=== PATIENT | male | born 1960 | race Caucasian/White ===

== ENCOUNTER 2020-06-11 01:14 | Inpatient (IN) | payer OTHER, SELFPAY ==
[~2020-06-11] VITALS: Ht 185.4 cm; Wt 96.4 kg
[2020-06-11] VITALS (8 sets, daily range): BP systolic 126–157; BP diastolic 71–95
[2020-06-11] MEDS ORDERED: methylPREDNISolone 125MG 2ML VIAL IV ONE (02:00)
[2020-06-11] MEDS: COMBIVENT RESPIMAT 100-20MCG INHALER 4GM INH SCH ×2 (02:00→03:14)
[2020-06-11] MEDS ORDERED: ONDANSETRON 4MG/2ML VIAL IV ONE (02:00)
[2020-06-11 02:29] LABS: BASO # 0.1 10^3/uL (0.0-0.2); BASO % 0.3 % (0.0-1.0); EOS # 0.1 10^3/uL (0.0-0.5); EOS % 0.4 % (0.0-3.0); HEMATOCRIT 41.8 % (42.0-52.0); HEMOGLOBIN 12.5 g/dl (13.5-17.5); LYMPH # 2.1 10^3/uL (1.5-5.0); LYMPH % 13.1 % (24.0-44.0); MEAN CORPUSCULAR HEMOGLOBIN 30.1 pg (27.0-33.0); MEAN CORPUSCULAR HGB CONC 29.9 g/dl (32.0-36.5); MEAN CORPUSCULAR VOLUME 100.7 fl (80.0-96.0); MONO # 0.6 10^3/uL (0.0-0.8); MONO % 3.8 % (0.0-5.0); NEUTROPHILS # 13.2 10^3/uL (1.5-8.5); NEUTROPHILS % 81.9 % (36.0-66.0); PLATELET COUNT, AUTOMATED 293 10^3/uL (150-450); RED BLOOD COUNT 4.15 10^6/uL (4.30-6.10); WHITE BLOOD COUNT 16.1 10^3/uL (4.0-10.0)
[2020-06-11] MEDS ORDERED: ARNU1INH3 PO (02:46)
[2020-06-11] MEDS ORDERED: LORA1TAB4 PO ×2 (02:46→07:04)
[2020-06-11] MEDS ORDERED: FLUO20CA22 PO (02:46)
[2020-06-11] MEDS ORDERED: STIO1AER IN (02:46)
[2020-06-11] MEDS ORDERED: CARV25TA PO ×2 (02:46→07:04)
[2020-06-11] MEDS ORDERED: QUET100T2 PO ×2 (02:46→07:04)
[2020-06-11] MEDS ORDERED: TREL1AER PO (02:46)
[2020-06-11] MEDS ORDERED: TRAZ1TAB11 PO (02:46)
[2020-06-11] MEDS ORDERED: DALI1TAB2 PO ×2 (02:46→07:04)
[2020-06-11 02:59] LABS: ALBUMIN 3.2 GM/DL (3.2-5.2); ALT/SGPT 10 U/L (12-78); BILIRUBIN,DIRECT 0.1 MG/DL (0.0-0.2); BILIRUBIN,TOTAL 0.4 MG/DL (0.2-1.0); BLOOD UREA NITROGEN 15 MG/DL (7-18); CALCIUM LEVEL 8.6 MG/DL (8.5-10.1); CARBON DIOXIDE LEVEL 37 MEQ/L (21-32); CHLORIDE LEVEL 97 MEQ/L (98-107); CK-MB VALUE MASS < 1.0 NG/ML (<3.6); CPK CREATINE PHOSPHOKINASE 31 U/L (39-308); CREATININE FOR GFR 0.99 MG/DL (0.70-1.30); GLOMERULAR FILTRATION RATE > 60.0 (>56); GLUCOSE, FASTING 194 MG/DL (70-100); MB/CK RELATIVE INDEX 3.23 (< OR =4); POTASSIUM SERUM 3.8 MEQ/L (3.5-5.1); SODIUM LEVEL 139 MEQ/L (136-145); TOTAL PROTEIN 6.7 GM/DL (6.4-8.2); TROPONIN I < 0.02 NG/ML (< 0.10)
[2020-06-11] MEDS ORDERED: NITROGLYCERIN 0.4 MG SUBL TABLET SL STA (03:31)
[2020-06-11] MEDS ORDERED: IPRATROPIUM 0.5MG/ALBUTEROL 2.5MG INH SOL UD 3ML (DUONEB) NEB ONE (03:45)
[2020-06-11] MEDS ORDERED: ISOVUE-370 76% 100ML VIAL As Ordered ONE (04:40)
--- NOTE | 2020-06-11 05:17 | REPVR ---
PROCEDURE INFORMATION: Exam: XR Chest, 1 View Exam date and time: 06/11/2020 3:57 AM Age: 59 years old Clinical indication: Cough; Additional info: Dyspnea/cough TECHNIQUE: Imaging protocol: XR of the chest Views: 1 view. COMPARISON: No relevant prior studies available. FINDINGS: Lungs: Mild bilateral perihilar and bibasilar reticulonodular and ground-glass opacities. Pleural space: Unremarkable. No pleural effusion. No pneumothorax. Heart/Mediastinum: Cardiomegaly. Bones/joints: Unremarkable. IMPRESSION: Cardiomegaly. Mild bilateral perihilar and bibasilar reticulonodular and ground-glass opacities. Electronically signed by: Darryn Mendiola On 06/11/2020 05:17:08 AM
--- NOTE | 2020-06-11 05:22 | REPVR ---
PROCEDURE INFORMATION: Exam: CT Angiography Chest With Contrast Exam date and time: 06/11/2020 4:33 AM Age: 59 years old Clinical indication: Chest pain; Type not specified; Additional info: SOB, chest pain TECHNIQUE: Imaging protocol: Computed tomographic angiography of the chest with intravenous contrast. 3D rendering (Not supervised by radiologist): MIP and/or 3D reconstructed images were created by the technologist. Radiation optimization: All CT scans at this facility use at least one of these dose optimization techniques: automated exposure control; mA and/or kV adjustment per patient size (includes targeted exams where dose is matched to clinical indication); or iterative reconstruction. Contrast material: ISO; Contrast volume: 75 ml; Contrast route: INTRAVENOUS (IV); COMPARISON: CR PORTABLE CHEST X-RAY 06/11/2020 3:48 AM FINDINGS: Degraded by motion. Pulmonary arteries: Normal. No pulmonary emboli. Aorta: Infrarenal abdominal aortic aneurysm measuring at least 3.2 cm. Lungs: Centrilobular and paraseptal emphysema. Subpleural ground-glass opacity in the right lower lobe. Atelectasis or scarring in the lingula. Pleural space: Unremarkable. No pneumothorax. No pleural effusion. Heart: Atherosclerotic disease of coronary arteries. Cardiomegaly. Lymph nodes: Unremarkable. No enlarged lymph nodes. Liver: Mild hepatomegaly. Adrenals: Left adrenal hyperplasia. Kidneys and ureters: Nonobstructive left nephrolithiasis. Suggestion of mild hydronephrosis. Bones/joints: Multilevel degenerative disease of the thoracic spine. Soft tissues: Unremarkable. IMPRESSION: Degraded by motion. No definite acute pulmonary embolic disease. Nonobstructive left nephrolithiasis. Suggestion of mild hydronephrosis. Infrarenal abdominal aortic aneurysm measuring at least 3.2 cm. Electronically signed by: Darryn Mendiola On 06/11/2020 05:22:10 AM
[2020-06-11] MEDS ORDERED: LABETALOL 100MG/20ML VIAL IV STA (06:02)
[2020-06-11] MEDS ORDERED: hydrALAZINE 20MG/ML 1ML VIAL (J0360 PER 20MG) IV PRN (06:15)
[2020-06-11] MEDS ORDERED: CARVedilol 12.5 MG TAB PO SCH (06:15)
[2020-06-11] MEDS ORDERED: AZITHROMYCIN 250MG TABLET PO ONE (06:15)
[2020-06-11] MEDS ORDERED: LEVALBUTEROL 1.25 MG/0.5 ML CONCENTRATE NEB INH PRN (06:15)
[2020-06-11] MEDS ORDERED: CARVedilol 12.5 MG TAB PO ONE (06:30)
[2020-06-11 06:36] LABS: NT-PRO BNP 1371 PG/ML (<125)
[2020-06-11 06:42] LABS: VENOUS BASE EXCESS 12.9 (-2.0-2.0); VENOUS O2 SATURATION 95.3 % (60.0-80.0); VENOUS PARTIAL PRESSURE CO2 97.6 mmHg (38.0-50.0); VENOUS PARTIAL PRESSURE O2 76.2 mmHg (30.0-50.0); VENOUS PH 7.272 UNITS (7.330-7.430); VENOUS STANDARD HCO3 36.6 MEQ/L
[2020-06-11] MEDS ORDERED: FLUO20CA20 PO (07:04)
[2020-06-11] MEDS ORDERED: TREL1AER INH (07:04)
[2020-06-11] MEDS ORDERED: LEVA1.25 INH (07:04)
[2020-06-11] MEDS ORDERED: PROAAER10 INH (07:04)
[2020-06-11] MEDS ORDERED: TRAZ-252 PO (07:04)
[2020-06-11] MEDS ORDERED: METF-838 PO (07:04)
[2020-06-11] MEDS ORDERED: PATIENT COMMENT (07:06)
[2020-06-11] MEDS: DOXYCYCLINE HYCLATE 100 MG in D5W MINI-BAG PLUS 100 ML IV SCH ×2 (07:34→19:08)
[2020-06-11] MEDS: LEVALBUTEROL 1.25 MG/0.5 ML CONCENTRATE NEB INH SCH ×5 (08:00→23:11)
--- NOTE | 2020-06-11 08:13 | HPEPDOC ---
[facility] Medical History & Physical Date of Admission Jun 11, 2020 Date of Service: Jun 11, 2020 Attending Physician: LENA RIOS MD History and Physical CHIEF COMPLAINT: shortness of breath HISTORY OF PRESENT ILLNESS: 59 yo M with a hx of COPD, asthma, CAD s/p stenting, HTN and Parkinsonism, presented to the [facility] ER with progressively worsening dyspnea. He reports cough without sputum and endorses subjective fevers. He states the he smoked marijuana, and reports that it was synthetic compound K2. He states that he had been having blurred vision and visual hallucinations. He denies seizures, unsteady gait. On arrival to ED BP 220/130, T 98.3, HR 95, RR 34, SpO2 97% on 4L NC. WBC 16.1. Hgb 12.5. Hct 41.8. Na 139. K 3.8. BNP 1371. He received 125 mg methylprednisolone in ED. Started on doxycycline. Labetalol IV 20 mg and carvedilol 25 mg PO. Patient admitted for management of acute COPD exacerbation, with likely acute on chronic CHF exacerbation. PAST MEDICAL HISTORY: 1. COPD 2. CAD s/p stenting 3. HTN 4. Asthma 5. Parkinsonism? PAST SURGICAL HISTORY: 1. Appendectomy in childhood 2. 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 REVIEW OF SYSTEMS: CONSTITUTIONAL: She is subjective chills HEENT: Endorses left eye yellow discharge, crusting CARDIOVASCULAR: patient denies chest pain, palpitations. RESPIRATORY: Endorses shortness of breath without cough. Reports wheezing GASTROINTESTINAL: patient denies abdominal pain, n/v/d, blood in stool. GENITOURINARY: patient denies dysuria, discharge. SKIN: patient denies rashes. MUSCULOSKELETAL: patient denies joint pain, neck pain. NEUROLOGICAL: patient denies focal weakness, numbness, seizures. PSYCHIATRIC: patient denies SI/HI. ENDOCRINE: patient denies polyuria, heat intolerance, cold intolerance. HEMATOLOGIC/LYMPHATIC: patient denies easy bruising. HOME MEDICATIONS: Please see below. PHYSICAL EXAMINATION: VITAL SIGNS: please see below General: NAD, comfortable HEENT: PERRLA, EOMI, sclerae clear, left conjunctiva injected, noted yellow crusty discharge. Neck: supple, normal ROM, no JVD Respiratory: Noted significant wheezing in bilateral lung bases, otherwise no rales or crackles CVS: RRR, normal S1, S2, no murmurs Abdo: soft, no masses, no hepatosplenomegaly, BS+, no rebound tenderness Extremities: no edema, pulses 2+ MSK: no joint deformities, normal ROM Neuro: no focal neuro deficits, moving all 4 extremities, CN2-12 intact. Strength 5/5 in all 4 extremities. No nystagmus. Psych: calm, cooperative, AAO x 3 LABORATORY DATA: See below. IMAGING: CT head wo contrast (06/11/20) No acute findings, no ICH. CTA chest (06/11/20): Degraded by motion. No definite acute pulmonary embolic disease. Nonobstructive left nephrolithiasis. Suggestion of mild hydronephrosis. Infrarenal abdominal aortic aneurysm measuring at least 3.2 cm. CXR (06/11/20): Cardiomegaly. Mild bilateral perihilar and bibasilar reticulonodular and ground-glass opacities. MICROBIOLOGY: Please see below. ASSESSMENT: 59 yo M with a hx of COPD, asthma, CAD s/p stenting, HTN and Parkinsonism, presented to the [facility] ER with progressively worsening dyspnea. . PLAN: #Acute COPD exacerbation: duonebs. Symbicort. O2 via NC, maintain SpO2 > 92%. C/w IV solumedrol 80 mg IV q8h. #Acute on chronic CHF exacerbation: 2D echo. Lasix. c/w coreg 25 mg BID #Hypertensive urgency: improved. resume home meds. #visual hallucination: given hx of parkinsonism consider lewy body dementia. Took synthetic marijuana. CT head wo contrast negative for ICH. #L bacterial conjunctitis: ophthalmic cipro ointment. Consider ophtho eval if no improvement. #Hx of falls: ongoing workup of Parkinsonism. Reports frequent falls. PT/OT eval. DVT ppx: lovenox Vital Signs Vital Signs Date Time Temp Pulse Resp B/P (MAP) Pulse Ox O2 Delivery O2 Flow Rate FiO2 06/11/20 07:33 87 195/117 06/11/20 06:59 20 94 Nasal Cannula 4.0 06/11/20 06:39 97.8 Laboratory Data Labs 24H Laboratory Tests 2 06/11/20 02:18: Immature Granulocyte % (Auto) 0.5, Neutrophils (%) (Auto) 81.9H, Lymphocytes (%) (Auto) 13.1L, Monocytes (%) (Auto) 3.8, Eosinophils (%) (Auto) 0.4, Basophils (%) (Auto) 0.3, Neutrophils # (Auto) 13.2H, Lymphocytes # (Auto) 2.1, Monocytes # (Auto) 0.6, Eosinophils # (Auto) 0.1, Basophils # (Auto) 0.1, Nucleated Red Blood Cells % (auto) 0.0, Anion Gap 5L, Glomerular Filtration Rate > 60.0, Lactic Acid Level 0.7, Calcium Level 8.6, Total Bilirubin 0.4, Direct Bilirubin 0.1, Aspartate Amino Transf (AST/SGOT) 7, Alanine Aminotransferase (ALT/SGPT) 10L, Alkaline Phosphatase 71, Total Creatine Kinase 31L, Creatine Kinase MB < 1.0, Creatine Kinase MB Relative Index 3.23, Troponin I < 0.02, KF-Htd-Q-Type Natriuretic Peptide 1371H, Total Protein 6.7, Albumin 3.2, Albumin/Globulin Ratio 0.9 06/11/20 06:30: Bedside Glucose (Misc Panel) 99 06/11/20 06:36: Blood Gas Bicarbonate Standard 36.6, Venous Blood pH 7.272L, Venous Blood Partial Pressure CO2 97.6H, Venous Blood Partial Pressure O2 76.2H, Venous Blood Total Carbon Dioxide 47.0H, Venous Blood HCO3 44.0H, Venous Blood Oxygen Saturation 95.3H, Venous Blood Base Excess 12.9H CBC/BMP Laboratory Tests 06/11/20 02:18 Microbiology Microbiology 06/11/20 Respiratory Virus Panel (PCR) ([facility]) - Final, Complete Home Medications Scheduled Carvedilol (Carvedilol) 25 Mg Tablet, 25 MG PO BID Fluoxetine Hcl (Fluoxetine HCl) 20 Mg Capsule, 60 MG PO DAILY Fluticasone/Umeclidin/Vilanter (Trelegy Ellipta 100-62.5-25) 1 Each Blst.w.dev, 1 PUFF INH DAILY Levalbuterol HCl (Levalbuterol Concentrate) 1.25 Mg/0.5 Ml Vial.neb, 1.25 MG INH TID Lorazepam (Lorazepam) 1 Mg Tablet, 1 MG PO Q8H Metformin HCl (Metformin HCl ER) 500 Mg Tab.er.24h, 500 MG PO DAILY Quetiapine Fumarate (Quetiapine Fumarate) 100 Mg Tablet, 100 MG PO QHS Roflumilast (Daliresp) 500 Mcg Tablet, 500 MCG PO DAILY Trazodone HCl (Trazodone HCl) 50 Mg Tablet, 100 MG PO QHS Scheduled PRN Albuterol Sulfate (Proair Hfa) 8.5 Gm Hfa.aer.ad, 2 PUFF INH QID PRN for SHORTNESS OF BREATH Miscellaneous Medications [Patient Comment] COMPLETED MED REC VIA EXTERNAL MED HISTORY Allergies Coded Allergies: fentanyl (Verified Allergy, Unknown, 06/11/20) A-FIB/CHADSVASC A-FIB History Current/History of A-Fib/PAF?: No Current PO Anticoag Therapy: No LENA RIOS MD Jun 11, 2020 08:13
[2020-06-11] MEDS ORDERED: IPRATROPIUM 0.5MG/ALBUTEROL 2.5MG INH SOL UD 3ML (DUONEB) NEB PRN (08:30)
[2020-06-11] MEDS ORDERED: CAPTOpril 12.5 MG TAB PO ONE (09:00)
[2020-06-11] MEDS ORDERED: FLUBLOK(EGG FREE)(QUAD)INFLUENZA VACC 0.5ML SYRINGE 18YRS & OLDER IM SCH (09:15)
[2020-06-11 10:00] LABS: MAGNESIUM LEVEL 2.1 MG/DL (1.8-2.4); TROPONIN I < 0.02 NG/ML (< 0.10)
[2020-06-11] MEDS: NITROGLYCERIN 2% OINT 1 GM *U/D* PKT TOP SCH ×4 (10:04→20:25)
[2020-06-11] MEDS: methylPREDNISolone 125MG 2ML VIAL IV SCH ×2 (11:24→17:31)
[2020-06-11 12:42] LABS: CK-MB VALUE MASS 1.6 NG/ML (<3.6); CPK CREATINE PHOSPHOKINASE 36 U/L (39-308); MB/CK RELATIVE INDEX 4.44 (< OR =4); TROPONIN I < 0.02 NG/ML (< 0.10)
[2020-06-11] MEDS: ERYTHROMYCIN OPHTH OINT OS SCH ×3 (13:44→20:25)
--- NOTE | 2020-06-11 14:52 | REP ---
INDICATION: hypertensive urgency. COMPARISON: None. TECHNIQUE: Standard renal ultrasound with renal artery Doppler ultrasound technique. FINDINGS: RENAL ULTRASOUND: The right kidney measured 11.1 x 4.9 x 7.2 cm and shows cortical thickness normal and the echogenicity upper range of normal. There are echogenic vessels in the renal sinus and increased renal sinus fat but no hydronephrosis or visible hydroureter. The left kidney measured 12.7 x 5.5 x 6.1 cm and its cortical echogenicity is also in the upper range of normal cortical thickness was normal. There are echogenic vessels in the kidney and increased renal sinus fat is again seen. There is upper pole 11 mm calculus with shadowing. Very minimal dilatation of the collecting system is evident. ON THE BLADDER WAS ONLY MINIMALLY DISTENDED THE PATIENT WAS NPO. NO VISIBLE STONE, MASS OR WALL THICKENING. NO URETERAL JETS OBSERVED. RENAL ARTERY DOPPLER ULTRASOUND: RIGHT KIDNEY: IT MEASURES 11.1 CM. PEAK RENAL ARTERY VELOCITY 107 CM/S, PEAK AORTIC VELOCITY 55 CM/S THIS GIVES A RENAL AORTIC RATIO OF 0.52. RESISTIVE INDEX IN THE UPPER MID AND LOWER POLES RESPECTIVELY IS 0.65, 0.60 AND 0.67. THE ACCELERATION TIME IN THESE AREAS IS 0.05, 0.046, 0.046 SECONDS. LEFT KIDNEY: IT MEASURES 12.7 CM. RENAL ARTERY PEAK VELOCITY NOT VISUALIZED. PEAK AORTIC VELOCITY 55 CM/S RESISTIVE INDEX FOR UPPER MID AND LOWER POLES IS 0.58, 0.67 AND 0.58 RESPECTIVELY. ACCELERATION TIME IS 0.046, 0.038 AND 0.046 SECONDS RESPECTIVELY. IMPRESSION: : 1. NO EVIDENCE OF RENAL ATROPHY. CORTICAL THICKNESS IS NORMAL ECHOGENICITY UPPER RANGE OF NORMAL. THERE IS SINUS LIPOMATOSIS AND SOME VERY MINIMAL HYDRONEPHROSIS ON THE LEFT. 11 MM STONE NOTED ON THE LEFT. BLADDER NOT WELL FILLED THE PATIENT WAS NPO. 2. THERE IS NO DOPPLER ULTRASOUND EVIDENCE OF RENAL ARTERY STENOSIS ON THE RIGHT. THE LEFT KIDNEY COULD NOT BE EVALUATED FOR ITS MAIN RENAL ARTERY BECAUSE OF BOWEL GAS AND BODY HABITUS THEREFORE NO ASSESSMENT FOR RENAL ARTERY STENOSIS ON THE LEFT CAN BE MADE. <Electronically signed by Leonard Gr > 06/11/20 [id number]
[2020-06-11] MEDS ORDERED: OXAZEPAM 10 MG CAP PO PRN (15:15)
[2020-06-11] MEDS ORDERED: LORazepam 2 MG/ML VIAL IV PRN ×2 (15:15→17:11)
--- NOTE | 2020-06-11 16:14 | REP ---
INDICATION: took synthetic marijuana, hallucination. R/o ICH. COMPARISON: None. TECHNIQUE: CT BRAIN PERFORMED IN THE AXIAL PLANE. CORONAL RECONSTRUCTION IMAGES ARE PERFORMED. FINDINGS: THE VENTRICLES ARE NORMAL IN SIZE AND POSITION. THERE IS NO MIDLINE SHIFT OR MASS EFFECT. ORELLANA-WHITE DIFFERENTIATION IS WELL MAINTAINED. THERE IS NO ACUTE INTRACRANIAL HEMORRHAGE OR EXTRA-AXIAL FLUID COLLECTION. BONE WINDOW EXAMINATION IS UNREMARKABLE. VISUALIZED MASTOID AIR CELLS AND PARANASAL SINUSES ARE CLEAR. IMPRESSION: NEGATIVE NONCONTRAST CT BRAIN. <Electronically signed by Leonard Gr > 06/11/20 [id number]
[2020-06-11] MEDS: MULTIVITAMINS/MINERALS THERAP 1 TAB PO SCH (16:27)
[2020-06-11] MEDS: THIAMINE 100 MG TAB PO SCH (16:27)
[2020-06-11] MEDS: FOLIC ACID 1 MG TAB PO SCH (16:27)
[2020-06-11] MEDS ORDERED: LORazepam 2 MG TAB PO PRN (17:00)
[2020-06-11 18:44] LABS: CPK CREATINE PHOSPHOKINASE 35 U/L (39-308); MB/CK RELATIVE INDEX 2.86 (< OR =4); TROPONIN I < 0.02 NG/ML (< 0.10)
[2020-06-11] MEDS: CARVedilol 12.5 MG TAB PO SCH (22:06)
[2020-06-11] MEDS ORDERED: LORazepam 2 MG/ML VIAL As Ordered ONE (22:21)
[2020-06-11] MEDS: LORazepam 1 MG TAB PO SCH (22:30)
[2020-06-11] MEDS ORDERED: ALBUTEROL 90 MCG/ACT 8GM HFA INHALER INH PRN (22:30)
[2020-06-11] MEDS: QUEtiapine FUMARATE 100 MG TAB PO SCH (23:15)
[2020-06-11] MEDS: traZODone 50 MG TAB PO SCH (23:15)
[2020-06-12] VITALS (7 sets, daily range): BP systolic 121–168; BP diastolic 63–98
[2020-06-12] MEDS: ERYTHROMYCIN OPHTH OINT OS SCH ×6 (00:16→21:00)
[2020-06-12] MEDS: NITROGLYCERIN 2% OINT 1 GM *U/D* PKT TOP SCH ×6 (00:17→20:59)
[2020-06-12] MEDS: methylPREDNISolone 125MG 2ML VIAL IV SCH ×3 (02:58→18:30)
[2020-06-12] MEDS: LEVALBUTEROL 1.25 MG/0.5 ML CONCENTRATE NEB INH SCH ×6 (03:06→23:46)
[2020-06-12] MEDS: LORazepam 1 MG TAB PO SCH ×3 (06:34→22:03)
[2020-06-12] MEDS: DOXYCYCLINE HYCLATE 100 MG in D5W MINI-BAG PLUS 100 ML IV SCH ×2 (06:34→18:29)
[2020-06-12] MEDS: THIAMINE 100 MG TAB PO SCH ×2 (09:24→20:58)
[2020-06-12] MEDS: CARVedilol 12.5 MG TAB PO SCH ×2 (09:24→21:00)
[2020-06-12] MEDS: FOLIC ACID 1 MG TAB PO SCH (09:24)
[2020-06-12] MEDS: MULTIVITAMINS/MINERALS THERAP 1 TAB PO SCH (09:24)
[2020-06-12] MEDS: ENOXAPARIN 40MG/0.4ML SYRINGE (J1650 PER 10MG) SC SCH (09:25)
[2020-06-12] MEDS: FLUoxetine 20 MG CAP PO SCH (09:25)
--- NOTE | 2020-06-12 10:06 | REP ---
INDICATION: hypoxia. COMPARISON: Comparison chest x-ray June 11, 2020.. TECHNIQUE: Single sitting AP radiograph. FINDINGS: Monitoring electrodes are seen. The lungs are hyperinflated. No infiltrate is seen. Pleural angles are sharp. Heart is enlarged as before. Pulmonary vascular and interstitial congestion is improved. IMPRESSION: Vascular and interstitial congestion pattern seen on the previous day has improved somewhat. Hyperinflation and cardiomegaly. No focal infiltrate seen. <Electronically signed by Warren Garcia > 06/12/20 [id number]
[2020-06-12] MEDS ORDERED: GLUCAGON INJ 1MG VIAL SC PRN (12:15)
[2020-06-12] MEDS ORDERED: DEXTROSE 50% 50 ML SYRINGE IV PRN (12:15)
[2020-06-12] MEDS ORDERED: GLUCOSE 4GM CHEW TABLET PO PRN (12:15)
--- NOTE | 2020-06-12 12:19 | IPNPDOC ---
Date Seen The patient was seen on 06/12/20. Progress Note SUBJECTIVE: Patient was seen and examined at bedside this morning. States improvement in shortness of breath. Denies chest pain, fevers, chills, palpit ations. Patient further endorses persistent blurred vision and haziness, but has been happening for the past year. He no longer endorses visual hallucinations. However. I suspect this was likely sequelae of synthetic marijuana use. As indicated below. A CT imaging of the brain on 06/11/2020 was negative for intracranial hemorrhage or acute ischemia OBJECTIVE PHYSICAL EXAMINATION: VITAL SIGNS: please see below General: NAD, comfortable HEENT: PERRLA, EOMI, sclerae clear, left conjunctiva injected, noted yellow crusty discharge. Approved from yesterday Neck: supple, normal ROM, no JVD Respiratory: Noted significant wheezing in bilateral lung bases, otherwise no rales or crackles CVS: RRR, normal S1, S2, no murmurs Abdo: soft, no masses, no hepatosplenomegaly, BS+, no rebound tenderness Extremities: no edema, pulses 2+ MSK: no joint deformities, normal ROM Neuro: no focal neuro deficits, moving all 4 extremities, CN2-12 intact. Strength 5/5 in all 4 extremities. No nystagmus. Psych: calm, cooperative, AAO x 3 LABORATORY DATA, IMAGING STUDIES, MICROBIOLOGY: Please see below. CXR 06/12/20: Vascular and interstitial congestion pattern seen on the previous day has improved somewhat. Hyperinflation and cardiomegaly. No focal infiltrate seen. CT head wo contrast (06/10/20): NEGATIVE NONCONTRAST CT BRAIN. Renal US (06/10/20): 1. NO EVIDENCE OF RENAL ATROPHY. CORTICAL THICKNESS IS NORMAL ECHOGENICITY UPPER RANGE OF NORMAL. THERE IS SINUS LIPOMATOSIS AND SOME VERY MINIMAL HYDRONEPHROSIS ON THE LEFT. 11 MM STONE NOTED ON THE LEFT. BLADDER NOT WELL FILLED THE PATIENT WAS NPO. 2. THERE IS NO DOPPLER ULTRASOUND EVIDENCE OF RENAL ARTERY STENOSIS ON THE RIGHT. THE LEFT KIDNEY COULD NOT BE EVALUATED FOR ITS MAIN RENAL ARTERY BECAUSE OF BOWEL GAS AND BODY HABITUS THEREFORE NO ASSESSMENT FOR RENAL ARTERY STENOSIS ON THE LEFT CAN BE MADE. CTA chest (06/11/20): Degraded by motion. No definite acute pulmonary embolic disease. Nonobstructive left nephrolithiasis. Suggestion of mild hydronephrosis. Infrarenal abdominal aortic aneurysm measuring at least 3.2 cm. CXR (06/11/20): Cardiomegaly. Mild bilateral perihilar and bibasilar reticulonodular and ground-glass opacities. Echocardiogram: ordered, read pending. DVT prophylaxis ordered?: Y ASSESSMENT: 59 yo M with a hx of COPD, asthma, CAD s/p stenting, HTN and Parkinsonism, presented to the [facility] ER with progressively worsening dyspnea. . PLAN: #Acute COPD exacerbation: WBC 16.1. doxycycline. duonebs. Symbicort. O2 via NC, maintain SpO2 > 92%. C/w IV solumedrol 80 mg IV q8h until 06/13/20, then transition to PO. Add ISS. PPI. #Acute on chronic CHF exacerbation: 2D echo read pending. Lasix 40 mg IV once today. c/w coreg 25 mg BID #Hypertensive urgency: BP remains elevated. Coreg 25 mg BID. Add lisinopril 10 mg daily. Titrate. #visual hallucination: given hx of parkinsonism consider lewy body dementia. Took synthetic marijuana. CT head wo contrast negative for ICH. #L bacterial conjunctitis: ophthalmic cipro ointment. Consider ophtho eval if no improvement. #Hx of falls: ongoing workup of Parkinsonism. Reports frequent falls. PT/OT eval. L hydronephrosis: 11 mm stone in L kidney. Cr wnl. Discussed with urology Infrarenal aortic aneurysm: 3.2 cm. Vascular surgery follow up outpatient. VS, I&O, 24H, Fishbone Vital Signs/I&O Vital Signs Date Time Temp Pulse Resp B/P (MAP) Pulse Ox O2 Delivery O2 Flow Rate FiO2 06/12/20 10:43 77 168/97 06/12/20 06:00 98.6 16 91 Nasal Cannula 2.0 I&O- Last 24 Hours up to 6 AM 06/12/20 06:00 Intake Total 560 ml Output Total 1925 ml Balance -1365 ml Laboratory Data 24H LABS Laboratory Tests 2 06/11/20 17:55: Total Creatine Kinase 35L, Creatine Kinase MB 1.0, Creatine Kinase MB Relative Index 2.86, Troponin I < 0.02 Microbiology Microbiology 06/11/20 Respiratory Virus Panel (PCR) ([facility]) - Final, Complete LENA RIOS MD Jun 12, 2020 12:19
[2020-06-12] MEDS: PANTOPRAZOLE 40MG TAB (PROTONIX) PO SCH ×2 (12:27→20:58)
[2020-06-12] MEDS: lisinopriL 10 MG TAB PO SCH (12:28)
[2020-06-12] MEDS ORDERED: FUROSEMIDE 40MG/4ML VIAL (J1940) IV ONE (12:30)
[2020-06-12 13:20] LABS: BASO % 0.1 % (0.0-1.0); HEMATOCRIT 43.3 % (42.0-52.0); HEMOGLOBIN 13.8 g/dl (13.5-17.5); LYMPH # 1.5 10^3/uL (1.5-5.0); LYMPH % 11.9 % (24.0-44.0); MEAN CORPUSCULAR HEMOGLOBIN 31.1 pg (27.0-33.0); MEAN CORPUSCULAR HGB CONC 31.9 g/dl (32.0-36.5); MEAN CORPUSCULAR VOLUME 97.5 fl (80.0-96.0); MONO # 0.3 10^3/uL (0.0-0.8); MONO % 2.1 % (0.0-5.0); NEUTROPHILS # 10.9 10^3/uL (1.5-8.5); NEUTROPHILS % 85.2 % (36.0-66.0); PLATELET COUNT, AUTOMATED 306 10^3/uL (150-450); RED BLOOD COUNT 4.44 10^6/uL (4.30-6.10); WHITE BLOOD COUNT 12.8 10^3/uL (4.0-10.0)
[2020-06-12] MEDS: SYMBICORT 80/4.5MCG INHALER 6GM INH SCH ×2 (13:37→19:55)
[2020-06-12 14:25] LABS: ALBUMIN 3.4 GM/DL (3.2-5.2); ALT/SGPT 10 U/L (12-78); BILIRUBIN,TOTAL 0.4 MG/DL (0.2-1.0); BLOOD UREA NITROGEN 22 MG/DL (7-18); CALCIUM LEVEL 9.6 MG/DL (8.5-10.1); CARBON DIOXIDE LEVEL 31 MEQ/L (21-32); CHLORIDE LEVEL 98 MEQ/L (98-107); GLOMERULAR FILTRATION RATE > 60.0 (>56); GLUCOSE, FASTING 152 MG/DL (70-100); MAGNESIUM LEVEL 2.2 MG/DL (1.8-2.4); POTASSIUM SERUM 3.9 MEQ/L (3.5-5.1); SODIUM LEVEL 137 MEQ/L (136-145); TOTAL PROTEIN 7.2 GM/DL (6.4-8.2)
[2020-06-12] MEDS: HumaLOG INSULIN (NovoLOG) PER UNIT SC SCH ×2 (17:19→21:00)
--- NOTE | 2020-06-12 18:49 | ECGEPIP ---
[facility] - ED Test Date: 2020-06-11 Pat Name: ELIEZER SEN Department: Room: [place] [address] Gender: Male Attendant Child Activity: mohan : 1960 Requested By: HELEN Marie Order Number: [id number] Reading MD: Ginny Hodge Measurements Intervals [place] Rate: 86 P: 95 AL: 222 QRS: -9 QRSD: 120 T: 46 QT: 395 QTc: 474 Interpretive Statements SINUS RHYTHM WITH FIRST DEGREE AV BLOCK ANTEROLATERAL MYOCARDIAL INFARCTION, OF INDETERMINATE AGE NSTTW abnormalities NO PRIOR Electronically Signed on 06-12-2020 18:49:41 EST by Ginny Hodge
[2020-06-12] MEDS: QUEtiapine FUMARATE 100 MG TAB PO SCH (20:58)
[2020-06-12] MEDS: traZODone 50 MG TAB PO SCH (20:58)
[2020-06-13] MEDS: methylPREDNISolone 125MG 2ML VIAL IV SCH (01:16)
[2020-06-13] MEDS: NITROGLYCERIN 2% OINT 1 GM *U/D* PKT TOP SCH ×6 (01:17→20:35)
[2020-06-13] MEDS: ERYTHROMYCIN OPHTH OINT OS SCH ×3 (01:17→08:16)
[2020-06-13] MEDS: LEVALBUTEROL 1.25 MG/0.5 ML CONCENTRATE NEB INH SCH ×5 (03:24→20:00)
[2020-06-13 05:53] VITALS: BP 148/88
[2020-06-13 06:00] VITALS: BP 148/88
[2020-06-13] MEDS: LORazepam 1 MG TAB PO SCH ×3 (06:04→21:58)
[2020-06-13] MEDS: DOXYCYCLINE HYCLATE 100 MG in D5W MINI-BAG PLUS 100 ML IV SCH ×2 (06:05→18:35)
[2020-06-13 06:15] LABS: BASO % 0.1 % (0.0-1.0); HEMATOCRIT 40.9 % (42.0-52.0); HEMOGLOBIN 12.6 g/dl (13.5-17.5); LYMPH # 1.5 10^3/uL (1.5-5.0); MEAN CORPUSCULAR HEMOGLOBIN 30.1 pg (27.0-33.0); MEAN CORPUSCULAR HGB CONC 30.8 g/dl (32.0-36.5); MEAN CORPUSCULAR VOLUME 97.8 fl (80.0-96.0); MONO # 0.3 10^3/uL (0.0-0.8); MONO % 2.3 % (0.0-5.0); NEUTROPHILS # 9.5 10^3/uL (1.5-8.5); NEUTROPHILS % 84.1 % (36.0-66.0); PLATELET COUNT, AUTOMATED 273 10^3/uL (150-450); RED BLOOD COUNT 4.18 10^6/uL (4.30-6.10); WHITE BLOOD COUNT 11.3 10^3/uL (4.0-10.0)
[2020-06-13 06:43] LABS: ALBUMIN 2.8 GM/DL (3.2-5.2); ALT/SGPT 8 U/L (12-78); BILIRUBIN,TOTAL 0.3 MG/DL (0.2-1.0); BLOOD UREA NITROGEN 26 MG/DL (7-18); CALCIUM LEVEL 9.1 MG/DL (8.5-10.1); CARBON DIOXIDE LEVEL 36 MEQ/L (21-32); CHLORIDE LEVEL 101 MEQ/L (98-107); CREATININE FOR GFR 0.86 MG/DL (0.70-1.30); GLOMERULAR FILTRATION RATE > 60.0 (>56); GLUCOSE, FASTING 165 MG/DL (70-100); MAGNESIUM LEVEL 2.1 MG/DL (1.8-2.4); POTASSIUM SERUM 3.8 MEQ/L (3.5-5.1); SODIUM LEVEL 140 MEQ/L (136-145); TOTAL PROTEIN 6.7 GM/DL (6.4-8.2)
[2020-06-13] MEDS: SYMBICORT 80/4.5MCG INHALER 6GM INH SCH ×2 (07:28→20:54)
[2020-06-13] MEDS: HumaLOG INSULIN (NovoLOG) PER UNIT SC SCH ×4 (08:04→20:23)
[2020-06-13] MEDS: PANTOPRAZOLE 40MG TAB (PROTONIX) PO SCH ×2 (08:05→20:37)
[2020-06-13] MEDS: MULTIVITAMINS/MINERALS THERAP 1 TAB PO SCH (08:05)
[2020-06-13] MEDS: FOLIC ACID 1 MG TAB PO SCH (08:05)
[2020-06-13] MEDS: THIAMINE 100 MG TAB PO SCH ×2 (08:05→20:37)
[2020-06-13] MEDS: FLUoxetine 20 MG CAP PO SCH (08:05)
[2020-06-13] MEDS: CARVedilol 12.5 MG TAB PO SCH ×2 (08:06→20:37)
[2020-06-13] MEDS: ENOXAPARIN 40MG/0.4ML SYRINGE (J1650 PER 10MG) SC SCH (08:06)
[2020-06-13] MEDS: lisinopriL 10 MG TAB PO SCH (08:08)
[2020-06-13] MEDS ORDERED: CIPROFLOXACIN 0.3% OPHTH SOLN 2.5ML OS SCH (09:45)
[2020-06-13] MEDS: predniSONE 20 MG TAB PO SCH (10:24)
--- NOTE | 2020-06-13 10:27 | REP ---
INDICATION: COPD. COMPARISON: Comparison chest x-ray June 12, 2020.. TECHNIQUE: Single upright AP radiograph. FINDINGS: Monitoring electrodes overlie the chest. The lungs are hyperinflated. No infiltrate is seen. Pleural angles are sharp. Cardiomediastinal silhouette is unremarkable. Pulmonary vasculature is no longer cephalized. No evidence of pleural effusion or pulmonary edema. IMPRESSION: Hyperinflation, otherwise no acute disease. Pulmonary vasculature is improved. <Electronically signed by Warren Garcia > 06/13/20 [id number]
[2020-06-13] MEDS: TOBRAMYCIN 0.3% OPHTH SOLN 5 ML OS SCH ×3 (12:22→20:35)
[2020-06-13 14:00] VITALS: BP 136/83
--- NOTE | 2020-06-13 14:26 | IPNPDOC ---
Date Seen The patient was seen on 06/13/20. Progress Note SUBJECTIVE: Patient was seen and examined at bedside this morning. States comfortably breathing. Denies chest pain, fevers, chills, palpitations. States vision mildly improved. Remains on 2L NC, satting 96% at rest, but desaturates on exertion with PT. OBJECTIVE PHYSICAL EXAMINATION: VITAL SIGNS: please see below General: NAD, comfortable HEENT: PERRLA, EOMI, sclerae clear, left conjunctiva injected, noted yellow crusty discharge. Significant lower eyelid ectropion persists. Neck: supple, normal ROM, no JVD Respiratory: Noted significant wheezing in bilateral lung bases, otherwise no ra les or crackles CVS: RRR, normal S1, S2, no murmurs Abdo: soft, no masses, no hepatosplenomegaly, BS+, no rebound tenderness Extremities: no edema, pulses 2+ MSK: no joint deformities, normal ROM Neuro: no focal neuro deficits, moving all 4 extremities, CN2-12 intact. Strength 5/5 in all 4 extremities. No nystagmus. Psych: calm, cooperative, AAO x 3 LABORATORY DATA, IMAGING STUDIES, MICROBIOLOGY: Please see below. CXR 05/13/20: FINDINGS: Monitoring electrodes overlie the chest. The lungs are hyperinflated. No infiltrate is seen. Pleural angles are sharp. Cardiomediastinal silhouette is unremarkable. Pulmonary vasculature is no longer cephalized. No evidence of pleural effusion or pulmonary edema. IMPRESSION: Hyperinflation, otherwise no acute disease. Pulmonary vasculature is improved. CXR 06/12/20: Vascular and interstitial congestion pattern seen on the previous day has impr dorothy somewhat. Hyperinflation and cardiomegaly. No focal infiltrate seen. CT head wo contrast (06/10/20): NEGATIVE NONCONTRAST CT BRAIN. Renal US (06/10/20): 1. NO EVIDENCE OF RENAL ATROPHY. CORTICAL THICKNESS IS NORMAL ECHOGENICITY UPPER RANGE OF NORMAL. THERE IS SINUS LIPOMATOSIS AND SOME VERY MINIMAL HYDRONEPHROSIS ON THE LEFT. 11 MM STONE NOTED ON THE LEFT. BLADDER NOT WELL FILLED THE PATIENT WAS NPO. 2. THERE IS NO DOPPLER ULTRASOUND EVIDENCE OF RENAL ARTERY STENOSIS ON THE RIGHT . THE LEFT KIDNEY COULD NOT BE EVALUATED FOR ITS MAIN RENAL ARTERY BECAUSE OF BOWEL GAS AND BODY HABITUS THEREFORE NO ASSESSMENT FOR RENAL ARTERY STENOSIS ON THE LEFT CAN BE MADE. CTA chest (06/11/20): Degraded by motion. No definite acute pulmonary embolic disease. Nonobstructive left nephrolithiasis. Suggestion of mild hydronephrosis. Infrarenal abdominal aortic aneurysm measuring at least 3.2 cm. CXR (06/11/20): Cardiomegaly. Mild bilateral perihilar and bibasilar reticulonodular and ground-glass opacities. Echocardiogram: ordered, read pending. DVT prophylaxis ordered?: Y ASSESSMENT: 59 yo M with a hx of COPD, asthma, CAD s/p stenting, HTN and Parkinsonism, presented to the [facility] ER with progressively worsening dyspnea. . PLAN: #Acute COPD exacerbation: WBC trending down. C/w doxycycline. duonebs. Symbicort. O2 via NC, maintain SpO2 > 92%. DC IV solumedrol, transition to PO prednisone 40 mg daily. FSBS AC and HS.ISS. PPI. #Acute on chronic CHF exacerbation: 2D echo read pending. S/p lasix IV 40 mg once. C/w lasix 40 mg PO BID. c/w coreg 25 mg BID #Hypertensive urgency: BP remains elevated. Coreg 25 mg BID. Increase lisinopril to 20 mg daily. #visual hallucination: Resolved. given hx of parkinsonism consider lewy body dementia. Took synthetic marijuana. CT head wo contrast negative for ICH. Likely related to drug use. #L bacterial conjunctitis/keratitis: discussed with Dr. Joyner, recommends to continue erythromycin oint strip qhs, and to add tobramycin eye drops q4h for 1 week. Will need outpatient follow up. PFS to assist with insurance navigation. #Hx of falls: ongoing workup of Parkinsonism. Reports frequent falls. PT/OT eval. # L hydronephrosis: non obstructive L nephrolithiasis on CT. Cr wnl. Discussed with Dr. Feng. Recommends follow up with nephrology as outpatient. # Infrarenal aortic aneurysm: 3.2 cm. Vascular surgery follow up outpatient. Dispo: expecting discharge on 06/14/20, once medically stable. VS, I&O, 24H, Fishbone Vital Signs/I&O Vital Signs Date Time Temp Pulse Resp B/P (MAP) Pulse Ox O2 Delivery O2 Flow Rate FiO2 06/13/20 12:23 168/90 06/13/20 10:00 2.0 06/13/20 08:06 74 06/13/20 06:00 98.4 13 97 Nasal Cannula l I&O- Last 24 Hours up to 6 AM 06/13/20 05:59 Intake Total 2100 ml Output Total 0 ml Balance 2100 ml Laboratory Data 24H LABS Laboratory Tests 2 06/12/20 16:24: Bedside Glucose (Misc Panel) 154H 06/12/20 21:10: Bedside Glucose (Misc Panel) 186H 06/13/20 05:59: Immature Granulocyte % (Auto) 0.5, Neutrophils (%) (Auto) 84.1H, Lymphocytes (%) (Auto) 13.0L, Monocytes (%) (Auto) 2.3, Eosinophils (%) (Auto) 0.0, Basophils (%) (Auto) 0.1, Neutrophils # (Auto) 9.5H, Lymphocytes # (Auto) 1.5, Monocytes # (Auto) 0.3, Eosinophils # (Auto) 0.0, Basophils # (Auto) 0.0, Nucleated Red Blood Cells % (auto) 0.0, Anion Gap 3L, Glomerular Filtration Rate > 60.0, Calcium Level 9.1, Magnesium Level 2.1, Total Bilirubin 0.3, Aspartate Amino Transf (AST/SGOT) 7, Alanine Aminotransferase (ALT/SGPT) 8L, Alkaline Phosphatase 59, Total Protein 6.7, Albumin 2.8L, Albumin/Globulin Ratio 0.7 06/13/20 11:48: Bedside Glucose (Misc Panel) 152H CBC/BMP Laboratory Tests 06/13/20 05:59 Microbiology Microbiology 06/11/20 Respiratory Virus Panel (PCR) ([facility]) - Final, Complete POLINKEVLENA MCCABE MD Jun 13, 2020 14:26
--- NOTE | 2020-06-13 14:30 | ECHO ---
DATE OF PROCEDURE: 06/12/2020 Age: 59 Gender: Male Height: 185 cm Weight: 114 kg REFERRING PHYSICIAN: Gianni Shannon MD INDICATION: Dysesthesia, unspecified. MEASUREMENTS: 2D Measurements: Left ventricle diastole 6.7 cm Interventricular septum 1.37 cm Posterior wall 1.26 cm Aortic root 3.6 cm Left atrium 5.2 cm Inferior vena cava 2.1 cm Doppler Measurements: No aortic stenosis No aortic regurgitation Very mild mitral regurgitation No mitral stenosis Aortic valve velocity 138 cm/s LVOT velocity 116 cm/s LVOT VTI 21.4 cm Mitral E velocity 77.1 cm/s Mitral A velocity 137 cm/s No tricuspid regurgitation No pulmonic regurgitation Pulmonary artery acceleration time 166 m/s MITRAL ANNULAR TISSUE DOPPLER E prime septal 6.5 cm/s DESCRIPTION: Rhythm was sinus. No pericardial effusion. This was a 2D, M-mode, color flow Doppler, and pulsed wave Doppler examination including mitral annular tissue Doppler. Moderately technically difficulty echocardiogram. CONCLUSIONS: 1. Mildly dilated left ventricle with mild eccentric left ventricular hypertrophy. Normal regional left ventricular (LV) wall motion and wall thickening. Normal left ventricular (LV) systolic function. Left ventricular ejection fraction (LVEF) 60% by visual estimate. Grade 1 left ventricular (LV) diastolic dysfunction (impaired relaxation filling pattern). 2. Moderate left atrial dilatation. 3. Pulmonary artery systolic pressure not elevated. Normal right ventricle size and systolic function. No interatrial shunt by color flow Doppler assessment. 4. Mild aortic valve sclerosis of a 3-cuspid aortic valve. No aortic regurgitation. 5. Mild mitral annular calcification. Very mild mitral regurgitation. 6. Moderately technically difficult echocardiogram. [facility] [place] [facility]
[2020-06-13] MEDS: FUROSEMIDE 40 MG TAB PO SCH (17:18)
[2020-06-13] MEDS: traZODone 50 MG TAB PO SCH (20:36)
[2020-06-13] MEDS ORDERED: ERYTHROMYCIN OPHTH OINT OS SCH (21:00)
[2020-06-13] MEDS: QUEtiapine FUMARATE 100 MG TAB PO SCH (21:58)
[2020-06-13 21:59] VITALS: BP 142/64
[2020-06-13 22:00] VITALS: BP 142/64
[2020-06-14] MEDS: NITROGLYCERIN 2% OINT 1 GM *U/D* PKT TOP SCH ×4 (00:10→12:45)
[2020-06-14] MEDS: TOBRAMYCIN 0.3% OPHTH SOLN 5 ML OS SCH ×4 (00:10→12:45)
[2020-06-14] MEDS: LEVALBUTEROL 1.25 MG/0.5 ML CONCENTRATE NEB INH SCH ×5 (00:12→15:05)
[2020-06-14] MEDS ORDERED: RAMELTEON 8 MG TAB (ROZEREM) PO PRN (00:30)
[2020-06-14 01:32] VITALS: O2SAT 96
[2020-06-14 06:00] VITALS: BP 127/69
[2020-06-14] MEDS: LORazepam 1 MG TAB PO SCH ×2 (06:22→14:50)
[2020-06-14] MEDS: DOXYCYCLINE HYCLATE 100 MG in D5W MINI-BAG PLUS 100 ML IV SCH (06:22)
[2020-06-14 06:48] VITALS: BP 127/69
[2020-06-14] MEDS: SYMBICORT 80/4.5MCG INHALER 6GM INH SCH (07:14)
[2020-06-14 07:26] LABS: BASO % 0.1 % (0.0-1.0); EOS % 0.1 % (0.0-3.0); HEMATOCRIT 40.7 % (42.0-52.0); HEMOGLOBIN 12.6 g/dl (13.5-17.5); LYMPH % 33.2 % (24.0-44.0); MEAN CORPUSCULAR HEMOGLOBIN 30.2 pg (27.0-33.0); MEAN CORPUSCULAR VOLUME 97.6 fl (80.0-96.0); MONO # 0.9 10^3/uL (0.0-0.8); MONO % 7.4 % (0.0-5.0); NEUTROPHILS # 7.1 10^3/uL (1.5-8.5); NEUTROPHILS % 58.6 % (36.0-66.0); PLATELET COUNT, AUTOMATED 269 10^3/uL (150-450); RED BLOOD COUNT 4.17 10^6/uL (4.30-6.10); WHITE BLOOD COUNT 12.1 10^3/uL (4.0-10.0)
[2020-06-14] MEDS: HumaLOG INSULIN (NovoLOG) PER UNIT SC SCH ×2 (07:30→12:46)
[2020-06-14 07:41] LABS: ALBUMIN 2.7 GM/DL (3.2-5.2); ALT/SGPT 10 U/L (12-78); BILIRUBIN,TOTAL 0.3 MG/DL (0.2-1.0); BLOOD UREA NITROGEN 23 MG/DL (7-18); CALCIUM LEVEL 8.6 MG/DL (8.5-10.1); CARBON DIOXIDE LEVEL 36 MEQ/L (21-32); CHLORIDE LEVEL 100 MEQ/L (98-107); CREATININE FOR GFR 0.81 MG/DL (0.70-1.30); GLOMERULAR FILTRATION RATE > 60.0 (>56); GLUCOSE, FASTING 95 MG/DL (70-100); POTASSIUM SERUM 3.3 MEQ/L (3.5-5.1); SODIUM LEVEL 142 MEQ/L (136-145); TOTAL PROTEIN 5.6 GM/DL (6.4-8.2)
[2020-06-14] MEDS: FUROSEMIDE 40 MG TAB PO SCH (08:10)
[2020-06-14] MEDS: FOLIC ACID 1 MG TAB PO SCH (08:10)
[2020-06-14] MEDS: ENOXAPARIN 40MG/0.4ML SYRINGE (J1650 PER 10MG) SC SCH (08:10)
[2020-06-14] MEDS: predniSONE 20 MG TAB PO SCH (08:10)
[2020-06-14] MEDS: THIAMINE 100 MG TAB PO SCH (08:11)
[2020-06-14] MEDS: PANTOPRAZOLE 40MG TAB (PROTONIX) PO SCH (08:11)
[2020-06-14] MEDS: FLUoxetine 20 MG CAP PO SCH (08:11)
[2020-06-14] MEDS: MULTIVITAMINS/MINERALS THERAP 1 TAB PO SCH (08:11)
[2020-06-14] MEDS: CARVedilol 12.5 MG TAB PO SCH (08:12)
[2020-06-14] MEDS ORDERED: lisinopriL 20 MG TAB PO SCH (09:00)
--- NOTE | 2020-06-14 09:37 | DS.PDOC ---
Discharge Summary General Date of Admission Jun 11, 2020 at 06:10 Date of Discharge 06/14/20 Discharge Summary PROCEDURES PERFORMED DURING STAY: [None]. ADMITTING DIAGNOSES: Acute COPD exacerbaton Acute on chronic CHF exacerbation HTN urgency L bacterial conjunctivitis/keratitis L hydronephrosis Infrarenal aortic aneurysm Hx of falls DISCHARGE DIAGNOSES: Acute COPD exacerbaton Acute on chronic CHF exacerbation HTN urgency L bacterial conjunctivitis/keratitis L hydronephrosis Infrarenal aortic aneurysm Hx of falls DM2 COMPLICATIONS/CHIEF COMPLAINT: Hypertensive Urgency. HISTORY OF PRESENT ILLNESS: 59 yo M with a hx of COPD, asthma, CAD s/p stenting, HTN and Parkinsonism, presented to the [facility] ER with progressively worsening dyspnea. He reports cough without sputum and endorses subjective fevers. He states the he smoked marijuana, and reports that it was synthetic compound K2. He states that he had been having blurred vision and visual hallucinations. He denies seizures, unsteady gait. On arrival to ED BP 220/130, T 98.3, HR 95, RR 34, SpO2 97% on 4L NC. WBC 16.1. Hgb 12.5. Hct 41.8. Na 139. K 3.8. BNP 1371. He received 125 mg methylprednisolone in ED. Started on doxycycline. Labetalol IV 20 mg and carvedilol 25 mg PO. Patient admitted for management of acute COPD exacerbation, with likely acute on chronic CHF exacerbation. HOSPITAL COURSE: #Acute COPD exacerbation: WBC trended down, slow rise likely due to steroids. duonebs. Symbicort. O2 via NC, maintain SpO2 > 92%. Patient at baseline, he is on 3L at home via NC. Received IV solumedrol 80 mg TID for 2 days. Prednisone taper on DC. Continue course of doxycycline. FSBS AC and HS. ISS. PPI. Patient stable on DC from pulmonary standpoint. Smoking cessation counseling provided. Advised to seek referral for pulmonology. #Acute on chronic CHF exacerbation: 2D echo completed, G1DD. S/p lasix IV 40 mg once. patient appears euvolemic. will DC with lasix 40 mg PO daily. c/w coreg 25 mg BID. Added lisinopril 20 mg PO daily. #Hypertensive urgency: BP well controlled. Renal US, grossly normal, mild hydronephrosis on L (see below). Unable to visualize L renal artery. R renal artery without stenosis. Coreg 25 mg BID. Titrated lisinopril to 20 mg PO daily. #DM2: follow up A1c, lipid panel. On metformin PO. Will give ISS while on prednisone taper on DC. Added lisinopril on DC. Added lipitor. Needs to see podiatry and optho. #visual hallucination: Resolved. given hx of parkinsonism consider lewy body dementia. Took synthetic marijuana. CT head wo contrast negative for ICH. Likely related to drug use. #L bacterial conjunctitis/keratitis: discussed with Dr. Joyner, recommends to continue erythromycin oint strip qhs, and to add tobramycin eye drops q4h for 1 week. Will need outpatient follow up. PFS to assist with insurance navigation. #Hx of falls: ongoing workup of Parkinsonism. Reports frequent falls. Per PT, safe for DC. Neuro outpatient for ongoing workup of parkinsonism. Patient appears to be stable from mobility standpoint. # L hydronephrosis: non obstructive L nephrolithiasis on CT. Cr wnl. Discussed with Dr. Feng. Recommends follow up with nephrology as outpatient. # Infrarenal aortic aneurysm: 3.2 cm. Vascular surgery follow up outpatient. Dispo: expecting discharge on 06/14/20, once medically stable.. DISCHARGE MEDICATIONS: Please see below. ALLERGIES: Please see below. PHYSICAL EXAMINATION ON DISCHARGE: VITAL SIGNS: please see below General: NAD, comfortable HEENT: PERRLA, EOMI, sclerae clear, L conjunctival injection improved, no discharge. Significant lower eyelid ectropion persists. Neck: supple, normal ROM, no JVD Respiratory: CTAB, wheezing resolved, no rales or crackles CVS: RRR, normal S1, S2, no murmurs Abdo: soft, no masses, no hepatosplenomegaly, BS+, no rebound tenderness Extremities: no edema, pulses 2+ MSK: no joint deformities, normal ROM Neuro: no focal neuro deficits, moving all 4 extremities, CN2-12 intact. Strength 5/5 in all 4 extremities. No nystagmus. Psych: calm, cooperative, AAO x 3 LABORATORY DATA: Please see below. IMAGING: Echo 06/11/20: 1. Mildly dilated left ventricle with mild eccentric left ventricular hypertrophy. Normal regional left ventricular (LV) wall motion and wall thickening. Normal left ventricular (LV) systolic function. Left ventricular ejection fraction (LVEF) 60% by visual estimate. Grade 1 left ventricular (LV) diastolic dysfunction (impaired relaxation filling pattern). 2. Moderate left atrial dilatation. 3. Pulmonary artery systolic pressure not elevated. Normal right ventricle sizeand systolic function. No interatrial shunt by color flow Doppler assessment. 4. Mild aortic valve sclerosis of a 3-cuspid aortic valve. No aortic regurgitation. 5. Mild mitral annular calcification. Very mild mitral regurgitation. 6. Moderately technically difficult echocardiogram. CT head wo contrast (06/11/20): FINDINGS: THE VENTRICLES ARE NORMAL IN SIZE AND POSITION. THERE IS NO MIDLINE SHIFT OR MASS EFFECT. ORELLANA-WHITE DIFFERENTIATION IS WELL MAINTAINED. THERE IS NO ACUTE INTRACRANIAL HEMORRHAGE OR EXTRA-AXIAL FLUID COLLECTION. BONE WINDOW EXAMINATION IS UNREMARKABLE. VISUALIZED MASTOID AIR CELLS AND PARANASAL SINUSES ARE CLEAR. IMPRESSION: NEGATIVE NONCONTRAST CT BRAIN. Renal US with doppler (06/11/20): RENAL ULTRASOUND: The right kidney measured 11.1 x 4.9 x 7.2 cm and shows cortical thickness normal and the echogenicity upper range of normal. There are echogenic vessels in the renal sinus and increased renal sinus fat but no hydronephrosis or visible hydroureter. The left kidney measured 12.7 x 5.5 x 6.1 cm and its cortical echogenicity is also in the upper range of normal cortical thickness was normal. There are echogenic vessels in the kidney and increased renal sinus fat is again seen. There is upper pole 11 mm calculus with shadowing. Very minimal dilatation of the collecting system is evident. ON THE BLADDER WAS ONLY MINIMALLY DISTENDED THE PATIENT WAS NPO. NO VISIBLE STONE, MASS OR WALL THICKENING. NO URETERAL JETS OBSERVED. RENAL ARTERY DOPPLER ULTRASOUND: RIGHT KIDNEY: IT MEASURES 11.1 CM. PEAK RENAL ARTERY VELOCITY 107 CM/S, PEAK AORTIC VELOCITY 55 CM/S THIS GIVES A RENAL AORTIC RATIO OF 0.52. RESISTIVE INDEX IN THE UPPER MID AND LOWER POLES RESPECTIVELY IS 0.65, 0.60 AND 0.67. THE ACCELERATION TIME IN THESE AREAS IS 0.05, 0.046, 0.046 SECONDS. LEFT KIDNEY: IT MEASURES 12.7 CM. RENAL ARTERY PEAK VELOCITY NOT VISUALIZED. PEAK AORTIC VELOCITY 55 CM/S RESISTIVE INDEX FOR UPPER MID AND LOWER POLES IS 0.58, 0.67 AND 0.58 RESPECTIVELY. ACCELERATION TIME IS 0.046, 0.038 AND 0.046 SECONDS RESPECTIVELY. IMPRESSION: : 1. NO EVIDENCE OF RENAL ATROPHY. CORTICAL THICKNESS IS NORMAL ECHOGENICITY UPPER RANGE OF NORMAL. THERE IS SINUS LIPOMATOSIS AND SOME VERY MINIMAL HYDRONEPHROSIS ON THE LEFT. 11 MM STONE NOTED ON THE LEFT. BLADDER NOT WELL FILLED THE PATIENT WAS NPO. 2. THERE IS NO DOPPLER ULTRASOUND EVIDENCE OF RENAL ARTERY STENOSIS ON THE RIGHT. THE LEFT KIDNEY COULD NOT BE EVALUATED FOR ITS MAIN RENAL ARTERY BECAUSE OF BOWEL GAS AND BODY HABITUS THEREFORE NO ASSESSMENT FOR RENAL ARTERY STENOSIS ON THE LEFT CAN BE MADE. CTA Chest 06/11/20: FINDINGS: Degraded by motion. Pulmonary arteries: Normal. No pulmonary emboli. Aorta: Infrarenal abdominal aortic aneurysm measuring at least 3.2 cm. Lungs: Centrilobular and paraseptal emphysema. Subpleural ground-glass opacity in the right lower lobe. Atelectasis or scarring in the lingula. Pleural space: Unremarkable. No pneumothorax. No pleural effusion. Heart: Atherosclerotic disease of coronary arteries. Cardiomegaly. Lymph nodes: Unremarkable. No enlarged lymph nodes. Liver: Mild hepatomegaly. Adrenals: Left adrenal hyperplasia. Kidneys and ureters: Nonobstructive left nephrolithiasis. Suggestion of mild hydronephrosis. Bones/joints: Multilevel degenerative disease of the thoracic spine. Soft tissues: Unremarkable. IMPRESSION: Degraded by motion. No definite acute pulmonary embolic disease. Nonobstructive left nephrolithiasis. Suggestion of mild hydronephrosis. Infrarenal abdominal aortic aneurysm measuring at least 3.2 cm. CXR 06/11/20 IMPRESSION: Cardiomegaly. Mild bilateral perihilar and bibasilar reticulonodular and ground-glass opacities. PROGNOSIS: good ACTIVITY: As tolerated DIET: consistent carbohydrate DISCHARGE PLAN: DC home with primary care and specialist follow-up. Home health referral has been placed. Patient requires significant follow-up with the primary care doctor. We'll continue one week of ophthalmic antibiotics as prescribed. Complete prednisone taper. Continue inhalers. Continue prior level of home oxygen. Lasix 40 mg by mouth daily. DISCHARGE INSTRUCTIONS: 1. Please follow-up with your primary care doctor within 3-5 days. It is essential to have regular PCP follow up. 2. Please follow-up with ophthalmology within 1 week 3. Please follow-up with pulmonary medicine within 1-2 weeks, you may require referral from her primary care physician. 4. Please follow-up with urology within 1-2 weeks, you may require a referral from primary care doctor. 5. Please follow-up with vascular surgery within 1-2 weeks, you may require a referral from her primary care doctor 6. Please taking medications as prescribed. Complete a week of antibiotic eyedrops as prescribed (tobramycin every 4 hours, erythromycin at night). Please continue to take redness on 40 mg daily as prescribed for 7 days. You have been prescribed an insulin sliding scale plan, please use it according to the sliding scale instructions. A home health referral has been placed for you. 7. If you developed bleeding, chest pain, shortness of breath, seizures, nausea, fevers, or otherwise worsening of your symptoms, please call 911 or return to the nearest emergency room 8. Please obtain podiatry referral from your primary care doctor 9. Please follow up with neurology as outaptient. ITEMS TO FOLLOWUP ON ON OUTPATIENT: Follow up A1c, lipid panel Needs referral for podiatry, ophthalmology Needs referral to neurology DISCHARGE CONDITION: Stable TIME SPENT ON DISCHARGE: 35 minutes Vital Signs/I&Os Vital Signs Date Time Temp Pulse Resp B/P (MAP) Pulse Ox O2 Delivery O2 Flow Rate FiO2 06/14/20 08:12 64 06/14/20 08:11 157/93 06/14/20 06:00 98.8 16 98 Nasal Cannula 2.0 I&O- Last 24 Hours up to 6 AM 06/14/20 06:00 Intake Total 1510 ml Output Total 175 ml Balance 1335 ml Laboratory Data Labs 24H Laboratory Tests 2 06/13/20 11:48: Bedside Glucose (Misc Panel) 152H 06/13/20 16:40: Bedside Glucose (Misc Panel) 142H 06/13/20 20:14: Bedside Glucose (Misc Panel) 213H 06/14/20 06:22: Immature Granulocyte % (Auto) 0.6, Neutrophils (%) (Auto) 58.6, Lymphocytes (%) (Auto) 33.2, Monocytes (%) (Auto) 7.4H, Eosinophils (%) (Auto) 0.1, Basophils (%) (Auto) 0.1, Neutrophils # (Auto) 7.1, Lymphocytes # (Auto) 4.0, Monocytes # (Auto) 0.9H, Eosinophils # (Auto) 0.0, Basophils # (Auto) 0.0, Nucleated Red Blood Cells % (auto) 0.0, Anion Gap 6L, Glomerular Filtration Rate > 60.0, Calcium Level 8.6, Magnesium Level 2.0, Total Bilirubin 0.3, Aspartate Amino Transf (AST/SGOT) 4L, Alanine Aminotransferase (ALT/SGPT) 10L, Alkaline Phosphatase 52, Total Protein 5.6L, Albumin 2.7L, Albumin/Globulin Ratio 0.9 CBC/BMP Laboratory Tests 06/14/20 06:22 FSBS Laboratory Tests Test 06/13/20 11:48 06/13/20 16:40 06/13/20 20:14 Range/Units Bedside Glucose (Misc Panel) 152 142 213 70-105 MG/DL Microbiology Microbiology 06/11/20 Respiratory Virus Panel (PCR) (MARY) - Final, Complete Discharge Medications Scheduled Atorvastatin Calcium (Lipitor) 20 Mg Tablet, 20 MG PO QHS Carvedilol (Carvedilol) 25 Mg Tablet, 25 MG PO BID, (Reported) Doxycycline Monohydrate (Doxycycline) 100 Mg Capsule, 100 MG PO BID Erythromycin Base (Erythromycin) 1 Gm Oint...g., 1 DOSE OS QHS Fluoxetine Hcl (Fluoxetine HCl) 20 Mg Capsule, 60 MG PO DAILY, (Reported) Fluticasone/Umeclidin/Vilanter (Trelegy Ellipta 100-62.5-25) 1 Each Blst.w.dev, 1 PUFF INH DAILY Folic Acid (Folic Acid) 1 Mg Tablet, 1 MG PO DAILY Furosemide (Furosemide) 40 Mg Tablet, 40 MG PO BID Lisinopril (Lisinopril) 20 Mg Tablet, 20 MG PO DAILY Lorazepam (Lorazepam) 1 Mg Tablet, 1 MG PO Q8H, (Reported) Metformin HCl (Metformin HCl ER) 750 Mg Tab.er.24h, 750 MG PO DAILY Pantoprazole Sodium (Pantoprazole Sodium) 40 Mg Tablet.dr, 40 MG PO DAILY Prednisone (Prednisone) 20 Mg Tablet, 40 MG PO DAILY Quetiapine Fumarate (Quetiapine Fumarate) 100 Mg Tablet, 100 MG PO QHS, (Reported) Roflumilast (Daliresp) 500 Mcg Tablet, 500 MCG PO DAILY, (Reported) Tobramycin (Tobramycin) 0.3% 5ML Drops, 2 DROP OS Q4H Trazodone HCl (Trazodone HCl) 50 Mg Tablet, 100 MG PO QHS, (Reported) Scheduled PRN Albuterol Sulfate (Proair Hfa) 8.5 Gm Hfa.aer.ad, 2 PUFF INH QID PRN for SHORTNESS OF BREATH Allergies Coded Allergies: fentanyl (Verified Allergy, Unknown, 06/11/20) LENA RIOS MD Jun 14, 2020 09:37
[2020-06-14] MEDS ORDERED: TREL1AER INH (09:48)
[2020-06-14] MEDS ORDERED: PANT40TA29 PO (09:49)
[2020-06-14] MEDS ORDERED: METF750T36 PO (09:49)
[2020-06-14] MEDS ORDERED: LIPI20TA PO (09:49)
[2020-06-14] MEDS ORDERED: PRED20TA PO (09:49)
[2020-06-14] MEDS ORDERED: LISI-538 PO (09:49)
[2020-06-14] MEDS ORDERED: DOXY-350 PO (09:49)
[2020-06-14] MEDS ORDERED: ERYT5OIN25 OS (09:49)
[2020-06-14] MEDS ORDERED: FURO40TA2 PO (09:49)
[2020-06-14] MEDS ORDERED: FOLI1TAB11 PO (09:49)
[2020-06-14] MEDS ORDERED: PROAAER10 INH (09:49)
[2020-06-14] MEDS ORDERED: AK-T0.3S OS (09:49)
[2020-06-14] MEDS ORDERED: SERO50TA PO (09:51)
[2020-06-14 10:20] LABS: CHOLESTEROL LEVEL 206 MG/DL (<200); CHOLESTEROL RISK RATIO 4.577 (<5); HDL CHOLESTEROL 45 MG/DL (>40); LDL CHOLESTEROL 134 MG/DL (<100); NON-HDL-C 161 MG/DL; TRIGLYCERIDES LEVEL 135 MG/DL (<150)
[2020-06-14 10:27] LABS: HEMOGLOBIN A1c 5.8 %
[2020-06-14] MEDS ORDERED: PEN1MIS22 SC (10:53)
[2020-06-14] MEDS ORDERED: GLUC1TES2 XX (10:53)
[2020-06-14] MEDS ORDERED: LANC30MI XX (10:53)
[2020-06-14] MEDS ORDERED: ALCOPAD25 TOP (10:53)
[2020-06-14] MEDS ORDERED: HUMA100I5 SC (10:57)
[2020-06-14] MEDS ORDERED: ARTIDRO OP (11:05)
[2020-06-14 12:45] VITALS: BP 134/90
[2020-06-14 14:00] VITALS: BP_SYST 134; BP_SYST 151; BP_DIAS 102; BP_DIAS 90
[2020-06-14] MEDS ORDERED: BLOOKIT21 XX (14:17)
== END 2020-06-14 16:22 | disposition home health service (06) | DRG 194 ==
LOC: M ED 01:14 → M ED INP 06:10 → ENRESERV 06:19 → M ICU 09:00 → M MSPAV 17:47
PROVIDERS: ADMIT Family Medicine; ATTEND Family Medicine
DX: I11.0 Hypertensive heart disease with heart failure (principal); G20 Parkinson's disease; J44.1 Chronic obstructive pulmonary disease with (acute) exacerbation; I50.33 Acute on chronic diastolic (congestive) heart failure; H10.9 Unspecified conjunctivitis; N20.0 Calculus of kidney; I16.0 Hypertensive urgency; F12.951 Cannabis use, unspecified with psychotic disorder with hallucinations; J45.909 Unspecified asthma, uncomplicated; I25.10 Atherosclerotic heart disease of native coronary artery without angina pectoris; R26.81 Unsteadiness on feet; Z87.891 Personal history of nicotine dependence; R29.6 Repeated falls; Z79.84 Long term (current) use of oral hypoglycemic drugs; Z79.899 Other long term (current) drug therapy; Z88.5 Allergy status to narcotic agent; Z20.828 Contact with and (suspected) exposure to other viral communicable diseases

== ENCOUNTER 2020-09-19 13:45 | Inpatient (IN) | payer OTHER ==
[~2020-09-19] VITALS: Ht 188 cm; Wt 95.7 kg
[~2020-09-19 13:45] MED LIST: AK-T0.3S OS; ALCOPAD25 TOP; ARNU1INH3 PO; ARTIDRO OP; BLOOKIT21 XX; CARV25TA PO; DALI1TAB2 PO; DOXY-350 PO; ERYT5OIN25 OS; FLUO20CA20 PO; FLUO20CA22 PO; FOLI1TAB11 PO; FURO40TA2 PO; GLUC1TES2 XX; HUMA100I5 SC; LANC30MI XX; LEVA1.25 INH; LIPI20TA PO; LISI20TA33 PO; LORA1TAB4 PO; METF-838 PO; METF750T36 PO; PANT40TA29 PO; PATIENT COMMENT; PEN1MIS22 SC; PRED20TA PO; PROAAER10 INH; QUET100T2 PO; SERO50TA PO; STIO1AER IN; TRAZ-252 PO; TRAZ1TAB11 PO; TREL1AER INH; TREL1AER PO
[2020-09-19] MEDS ORDERED: ISOVUE-370 76% 100ML VIAL As Ordered ONE (14:08)
[2020-09-19 14:14] LABS: BASO # 0.1 10^3/uL (0.0-0.2); BASO % 0.6 % (0.0-1.0); EOS # 0.1 10^3/uL (0.0-0.5); EOS % 0.8 % (0.0-3.0); HEMATOCRIT 41.8 % (42.0-52.0); HEMOGLOBIN 13.1 g/dl (13.5-17.5); LYMPH # 3.3 10^3/uL (1.5-5.0); LYMPH % 31.4 % (24.0-44.0); MEAN CORPUSCULAR HEMOGLOBIN 31.3 pg (27.0-33.0); MEAN CORPUSCULAR HGB CONC 31.3 g/dl (32.0-36.5); MONO # 0.6 10^3/uL (0.0-0.8); NEUTROPHILS # 6.5 10^3/uL (1.5-8.5); NEUTROPHILS % 60.9 % (36.0-66.0); PLATELET COUNT, AUTOMATED 250 10^3/uL (150-450); RED BLOOD COUNT 4.18 10^6/uL (4.30-6.10); WHITE BLOOD COUNT 10.6 10^3/uL (4.0-10.0)
[2020-09-19 14:41] LABS: CK-MB VALUE MASS 1.2 NG/ML (<3.6); CPK CREATINE PHOSPHOKINASE 45 U/L (39-308); MB/CK RELATIVE INDEX 2.67 (< OR =4); TROPONIN I < 0.02 NG/ML (< 0.10)
--- NOTE | 2020-09-19 14:41 | REP ---
INDICATION: CVA - Nursing interventions must not delay CT. COMPARISON: Comparison CT study June 11, 2020.. TECHNIQUE: Helical scanning is acquired. 5 mm axial images were reformatted. Coronal MPR images were generated. FINDINGS: Digital preliminary chef passenger vessel radiographs are unremarkable. Bone window settings demonstrate vascular calcification in the distal internal carotid and distal vertebral arteries. The bony calvarium is intact. Visualized paranasal sinuses are clear. No intraorbital abnormality is seen. On soft tissue window settings, there is a new area of low density representing encephalomalacia in the right posterior temporal lobe consistent with recent infarction. This extends towards the occipital lobe. There is no evidence of intracranial hemorrhage. No extra-axial fluid collection is seen. No mass or midline shift is observed. IMPRESSION: New low-density area in the right posterior temporal lobe and occipital lobe region consistent with recent infarction. No hemorrhage seen. Vascular calcification noted.. <Electronically signed by Warren Garcia > 09/19/20 [id number]
--- NOTE | 2020-09-19 14:46 | REP ---
INDICATION: CVA - Nursing interventions must not delay CT COMPARISON: None. TECHNIQUE: Contrast enhancement dose is 100 mL of intravenous Isovue 370. Helical scanning is acquired. 2 mm axial images are re-formatted. Coronal and sagittal MPR images are generated. Coronal and sagittal MIP and oblique MPR images are generated. 3D surface rendered images are generated and viewed rotationally. FINDINGS: The thoracic aorta is normal in caliber. Some vascular calcification is seen in the great vessel origins. The vertebral artery origins are patent bilaterally. The right vertebral is smaller than the left and distally, the right vertebral artery ends in inferior cerebellar arteries. The left vertebral artery feeds the basilar artery. The distal vertebral is heavily calcified on the left. There is evidence of stenosis of the distal vertebral artery in the segment. Common carotid arteries are unremarkable bilaterally. There is mild to moderate calcific plaquing in the carotid bifurcations bilaterally. No high-grade stenosis is seen in either proximal ICA. Less than 40%. The cervical internal carotid artery segments are widely patent. And there is vascular calcification in the cavernous segments of the ICAs bilaterally. IMPRESSION: There is evidence of stenosis of the distal vertebral artery on the left. The right vertebral artery is small and terminates in inferior cerebellar artery. The distal left vertebral artery is heavily calcified. Less than 40% narrowing of the proximal ICAs bilaterally. <Electronically signed by Warren Garcia > 09/19/20 [id number]
--- NOTE | 2020-09-19 14:52 | REP ---
INDICATION: CVA - Nursing interventions must not delay CT. COMPARISON: None. TECHNIQUE: CT contrast dose: 100 ml of intravenous Isovue 370. CT technique: Helical scanning is acquired. 2 mm axial images are reformatted. Maximal intensity projection and multiplanar re-formation images are generated along with 3-D surface rendered color imaging which is viewed rotational. FINDINGS: The right distal vertebral artery appears to terminate in inferior cerebellar arteries rather than joining with the left. The right distal vertebral artery is quite a bit smaller than its left-sided counterpart. The left distal vertebral artery shows heavy focal almost circumferential calcific plaquing and significant narrowing, probably 75%. In addition, the mid basilar artery shows a high-grade stenosis approximately 75%. The right posterior cerebral artery is smaller than its left-sided counterpart but appears patent proximally. The left posterior cerebral is unremarkable. The distal internal carotid arteries show calcification at the siphons but no high-grade stenosis. The middle cerebral arteries and anterior cerebral arteries are intact. The right A1 segment is hypoplastic compared to the left. No vessel cutoff is seen. No evidence of arteriovenous malformation or ross aneurysm. The sagittal and bilateral sigmoid sinuses are patent. Straight sinus is patent. IMPRESSION: High-grade stenosis of the dominant but heavily calcified left distal vertebral artery. Right distal vertebral artery is small and ends in in inferior cerebellar vessels rather than joining with the left side. There is a high-grade mid basilar artery stenosis as well, 75%. The right posterior cerebral artery is small but appears patent. The right A1 segment is hypoplastic. Calcifications seen in the carotid siphons bilaterally. Otherwise negative. <Electronically signed by Warren Garcia > 09/19/20 [id number]
--- NOTE | 2020-09-19 14:55 | REP ---
INDICATION: CVA. COMPARISON: Comparison chest x-ray 13 June 2020. TECHNIQUE: Portable upright AP chest radiograph. Two views. FINDINGS: The lungs are somewhat hyperinflated but free of infiltrate. Pleural angles are sharp. Heart is borderline unchanged. Pulmonary vasculature is not increased. Monitoring electrodes are seen.. No acute bony abnormality is appreciated. . IMPRESSION: No active disease. <Electronically signed by Warren Garcia > 09/19/20 [id number]
--- OUTSIDE RECORDS SUMMARY | 2020-09-19 15:12 | CCD ---
Author Author [facility] Organization [facility] Address Unknown Phone Unavailable Care Team Providers Care Extras Casting Director Name Role Phone GUSTAVO Morris, Matilda Unavailable JUWAN OLVERA DO Unavailable Unavailable JUWAN OLVERA DO Unavailable Unavailable JUWAN OLVERA DO Unavailable Unavailable JUWAN OLVERA DO Unavailable Unavailable JUWAN OLVERA DO Unavailable Unavailable JUWAN OLVERA DO Unavailable Unavailable JUWAN OLVERA DO Unavailable Unavailable JUWAN OLVERA DO Unavailable Unavailable JUWAN OLVERA DO Unavailable Unavailable JUWAN OLVERA DO Unavailable Unavailable JUWAN OLVERA DO Unavailable Unavailable JUWAN OLVERA DO Unavailable Unavailable JUWAN OLVERA DO Unavailable Unavailable JUWAN OLVERA DO Unavailable Unavailable JUWAN OLVERA DO Unavailable Unavailable JUWAN OLVERA DO Unavailable Unavailable MAY, JUWAN LISA DO Unavailable Unavailable MAY, JUWAN ECHEVARRIAW DO Unavailable Unavailable MAY, JUWAN ECHEVARRIAW DO Unavailable Unavailable MAY, JUWAN ECHEVARRIAW DO Unavailable Unavailable MAY, JUWAN ECHEVARRIAW DO Unavailable Unavailable MAY, JUWAN LISA DO Unavailable Unavailable MAY, JUWAN LISA DO Unavailable Unavailable MAY, JUWAN LISA DO Unavailable Unavailable MAY, JUWAN LISA DO Unavailable Unavailable MAY, JUWAN ECHEVARRIAW DO Unavailable Unavailable MAY, JUWAN LISA DO Unavailable Unavailable MAY, JUWAN LISA DO Unavailable Unavailable MAY, JUWAN LISA DO Unavailable Unavailable MAY, JUWAN LISA DO Unavailable Unavailable MAY, JUWAN LISA DO Unavailable Unavailable MAY, JUWAN LISA DO Unavailable Unavailable MAY, JUWAN LISA DO Unavailable Unavailable MAY, JUWAN LISA DO Unavailable Unavailable MAY, JUWAN LISA DO Unavailable Unavailable MAY, JUWAN LISA DO Unavailable Unavailable MAY, JUWAN LISA DO Unavailable Unavailable MAY, JUWAN LISA DO Unavailable Unavailable MAY, JUWAN LISA DO Unavailable Unavailable MAY, JUWAN LISA DO Unavailable Unavailable MAY, JUWAN ECHEVARRIAW DO Unavailable Unavailable MAY, JUWAN ECHEVARRIAW DO Unavailable Unavailable MAY, JUWAN ECHEVARRIAW DO Unavailable Unavailable MAY, JUWAN ECHEVARRIAW DO Unavailable Unavailable MAY, JUWAN ECHEVARRIAW DO Unavailable Unavailable MAY, JUWAN ECHEVARRIAW DO Unavailable Unavailable MAY, JUWAN ECHEVARRIAW DO Unavailable Unavailable MAY, JUWAN ECHEVARRIAW DO Unavailable Unavailable MAY, JUWAN ECHEVARRIAW DO Unavailable Unavailable MAY, JUWAN ECHEVARRIAW DO Unavailable Unavailable MAY, JUWAN ECHEVARRIAW DO Unavailable Unavailable MAY, JUWAN ECHEVARRIAW DO Unavailable Unavailable MAY, JUWAN ECHEVARRIAW DO Unavailable Unavailable MAY, JUWAN ECHEVARRIAW DO Unavailable Unavailable MAY, JUWAN ECHEVARRIAW DO Unavailable Unavailable MAY, JUWAN ECHEVARRIAW DO Unavailable Unavailable MAY, JUWAN ECHEVARRIAW DO Unavailable Unavailable MAY, JUWAN ECHEVARRIAW DO Unavailable Unavailable MAY, JUWAN ECHEVARRIAW DO Unavailable Unavailable MAY, JUWAN GONZALEZ DO Unavailable Unavailable Maureen Riggs BELL CLEANER Unavailable Unavailable Colon, Clive Unavailable Unavailable Colon, Clive Unavailable Unavailable Colon, Clive Unavailable Unavailable Colon, Clive Unavailable Unavailable Nitish, Crystal CLINICAL NURSE EDUCATOR Unavailable Unavailable Useva, Bethany PA Unavailable Unavailable Useva, Bethany PA Unavailable Unavailable Useva, Bethany PA Unavailable Unavailable Useva, Bethany PA Unavailable Unavailable Useva, Bethany PA Unavailable Unavailable Useva, Bethany PA Unavailable Unavailable Useva, Bethany PA Unavailable Unavailable SHABEN, J LINDSAY BELL CLEANER Unavailable Unavailable SHABEN, J LINDSAY BELL CLEANER Unavailable Unavailable SHABEN, J LINDSAY BELL CLEANER Unavailable Unavailable SHABEN, J LINDSAY BELL CLEANER Unavailable Unavailable SHABEN, J LINDSAY BELL CLEANER Unavailable Unavailable SHABEN, J LINDSAY BELL CLEANER Unavailable Unavailable SHABEN, J LINDSAY BELL CLEANER Unavailable Unavailable SHABEN, J LINDSAY BELL CLEANER Unavailable Unavailable SHABEN, J LINDSAY BELL CLEANER Unavailable Unavailable SHABEN, J LINDSAY BELL CLEANER Unavailable Unavailable SHABEN, J LINDSAY BELL CLEANER Unavailable Unavailable SHABEN, J LINDSAY BELL CLEANER Unavailable Unavailable SHABEN, J LINDSAY BELL CLEANER Unavailable Unavailable SHABEN, J LINDSAY BELL CLEANER Unavailable Unavailable SHABEN, J LINDSAY BELL CLEANER Unavailable Unavailable SHABEN, J LINDSAY BELL CLEANER Unavailable Unavailable SHABEN, J LINDSAY BELL CLEANER Unavailable Unavailable SHABEN, J LINDSAY BELL CLEANER Unavailable Unavailable SHABEN, J LINDSAY BELL CLEANER Unavailable Unavailable SHABEN, J LINDSAY BELL CLEANER Unavailable Unavailable SHABEN, J LINDSAY BELL CLEANER Unavailable Unavailable SHABEN, J LINDSAY BELL CLEANER Unavailable Unavailable SHABEN, J LINDSAY BELL CLEANER Unavailable Unavailable SHABEN, J LINDSAY BELL CLEANER Unavailable Unavailable SHABEN, J LINDSAY BELL CLEANER Unavailable Unavailable SHABEN, J LINDSAY BELL CLEANER Unavailable Unavailable SHABEN, J LINDSAY BELL CLEANER Unavailable Unavailable SHABEN, J LINDSAY BELL CLEANER Unavailable Unavailable SHABEN, J LINDSAY BELL CLEANER Unavailable Unavailable SHABEN, J LINDSAY BELL CLEANER Unavailable Unavailable SHABEN, J LINDSAY BELL CLEANER Unavailable Unavailable SHABEN, J LINDSAY BELL CLEANER Unavailable Unavailable SHABEN, J LINDSAY BELL CLEANER Unavailable Unavailable SHABEN, J LINDSAY BELL CLEANER Unavailable Unavailable SHABEN, J LINDSAY BELL CLEANER Unavailable Unavailable SHABEN, J LINDSAY BELL CLEANER Unavailable Unavailable SHABEN, J LINDSAY BELL CLEANER Unavailable Unavailable SHABEN, J LINDSAY BELL CLEANER Unavailable Unavailable SHABEN, J LINDSAY BELL CLEANER Unavailable Unavailable SHABEN, J LINDSAY BELL CLEANER Unavailable Unavailable SHABEN, J LINDSAY BELL CLEANER Unavailable Unavailable SHABEN, J LINDSAY BELL CLEANER Unavailable Unavailable SHABEN, J LINDSAY BELL CLEANER Unavailable Unavailable SHABEN, J LINDSAY BELL CLEANER Unavailable Unavailable SHABEN, J LINDSAY BELL CLEANER Unavailable Unavailable SHABEN, J LINDSAY BELL CLEANER Unavailable Unavailable SHABEN, J LINDSAY BELL CLEANER Unavailable Unavailable SHABEN, J LINDSAY BELL CLEANER Unavailable Unavailable SHABEN, J LINDSAY BELL CLEANER Unavailable Unavailable SHABEN, J LINDSAY BELL CLEANER Unavailable Unavailable SHABEN, J LINDSAY BELL CLEANER Unavailable Unavailable SHABEN, J LINDSAY BELL CLEANER Unavailable Unavailable SHABEN, J LINDSAY BELL CLEANER Unavailable Unavailable SHABEN, J LINDSAY BELL CLEANER Unavailable Unavailable SHABEN, J LINDSAY BELL CLEANER Unavailable Unavailable SHABEN, J LINDSAY BELL CLEANER Unavailable Unavailable SHABEN, J LINDSAY BELL CLEANER Unavailable Unavailable SHABEN, J LINDSAY BELL CLEANER Unavailable Unavailable SHABEN, J LINDSAY BELL CLEANER Unavailable Unavailable SHABEN, J LINDSAY BELL CLEANER Unavailable Unavailable SHABEN, J LINDSAY BELL CLEANER Unavailable Unavailable SHABEN, J LINDSAY BELL CLEANER Unavailable Unavailable SHABEN, J LINDSAY BELL CLEANER Unavailable Unavailable SHABEN, J LINDSAY BELL CLEANER Unavailable Unavailable SHABEN, J LINDSAY BELL CLEANER Unavailable Unavailable SHABEN, J LINDSAY BELL CLEANER Unavailable Unavailable SHABEN, J LINDSAY BELL CLEANER Unavailable Unavailable SHABEN, J LINDSAY BELL CLEANER Unavailable Unavailable Virgilio Mays [facility] Unavailable Unavailable Depalmo, L Mitra BELL CLEANER Unavailable Unavailable Depalmo, L Mitra BELL CLEANER Unavailable Unavailable Depalmo, L Mitra BELL CLEANER Unavailable Unavailable Depalmo, L Mitra BELL CLEANER Unavailable Unavailable Depalmo, L Mitra BELL CLEANER Unavailable Unavailable Depalmo, L Mitra BELL CLEANER Unavailable Unavailable Depalmo, L Mitra BELL CLEANER Unavailable Unavailable Depalmo, L Mitra BELL CLEANER Unavailable Unavailable Depalmo, L Mitra BELL CLEANER Unavailable Unavailable Depalmo, L Mitra BELL CLEANER Unavailable Unavailable Depalmo, L Mitra BELL CLEANER Unavailable Unavailable Depalmo, L Mitra BELL CLEANER Unavailable Unavailable Depalmo, L Mitra BELL CLEANER Unavailable Unavailable Depalmo, L Mitra BELL CLEANER Unavailable Unavailable Depalmo, L Mitra BELL CLEANER Unavailable Unavailable Depalmo, L Mitra BELL CLEANER Unavailable Unavailable Depalmo, L Mitra BELL CLEANER Unavailable Unavailable Depalmo, L Mitra BELL CLEANER Unavailable Unavailable Depalmo, L Mitra BELL CLEANER Unavailable Unavailable Depalmo, L Mitra BELL CLEANER Unavailable Unavailable Depalmo, L Mitra BELL CLEANER Unavailable Unavailable Depalmo, L Mitra BELL CLEANER Unavailable Unavailable Depalmo, L Mitra BELL CLEANER Unavailable Unavailable Depalmo, L Mitra BELL CLEANER Unavailable Unavailable Depalmo, L Mitra BELL CLEANER Unavailable Unavailable Depalmo, L Mitra BELL CLEANER Unavailable Unavailable Depalmo, L Mitra BELL CLEANER Unavailable Unavailable Depalmo, L Mitra BELL CLEANER Unavailable Unavailable Depalmo, L Mitra BELL CLEANER Unavailable Unavailable Depalmo, L Mitra BELL CLEANER Unavailable Unavailable Depalmo, L Mitra BELL CLEANER Unavailable Unavailable Depalmo, L Mitra BELL CLEANER Unavailable Unavailable Mika, L Sarah MOLD BURNER Unavailable Unavailable Deadevon CHEN, Sonya Unavailable Krzysztof Ferraro LPN Unavailable Unavailable Abdoul Dai SIPHONER Unavailable Unavailable SHABEN, J LINDSAY BELL CLEANER Unavailable Unavailable SHABEN, J LINDSAY BELL CLEANER Unavailable Unavailable SHABEN, J LINDSAY BELL CLEANER Unavailable Unavailable SHABEN, J LINDSAY BELL CLEANER Unavailable Unavailable SHABEN, J LINDSAY BELL CLEANER Unavailable Unavailable SHABEN, J LINDSAY BELL CLEANER Unavailable Unavailable SHABEN, J LINDSAY BELL CLEANER Unavailable Unavailable SHABEN, J LINDSAY BELL CLEANER Unavailable Unavailable SHABEN, J LINDSAY BELL CLEANER Unavailable Unavailable SHABEN, J LINDSAY BELL CLEANER Unavailable Unavailable SHABEN, J LINDSAY BELL CLEANER Unavailable Unavailable SHABEN, J LINDSAY BELL CLEANER Unavailable Unavailable SHABEN, J LINDSAY BELL CLEANER Unavailable Unavailable SHABEN, J LINDSAY BELL CLEANER Unavailable Unavailable SHABEN, J LINDSAY BELL CLEANER Unavailable Unavailable SHABEN, J LINDSAY BELL CLEANER Unavailable Unavailable SHABEN, J LINDSAY BELL CLEANER Unavailable Unavailable SHABEN, J LINDSAY BELL CLEANER Unavailable Unavailable SHABEN, J LINDSAY BELL CLEANER Unavailable Unavailable SHABEN, J LINDSAY BELL CLEANER Unavailable Unavailable SHABEN, J LINDSAY BELL CLEANER Unavailable Unavailable SHABEN, J LINDSAY BELL CLEANER Unavailable Unavailable SHABEN, J LINDSAY BELL CLEANER Unavailable Unavailable SHABEN, J LINDSAY BELL CLEANER Unavailable Unavailable SHABEN, J LINDSAY BELL CLEANER Unavailable Unavailable SHABEN, J LINDSAY BELL CLEANER Unavailable Unavailable SHABEN, J LINDSAY BELL CLEANER Unavailable Unavailable SHABEN, J LINDSAY BELL CLEANER Unavailable Unavailable SHABEN, J LINDSAY BELL CLEANER Unavailable Unavailable SHABEN, J LINDSAY BELL CLEANER Unavailable Unavailable SHABEN, J LINDSAY BELL CLEANER Unavailable Unavailable SHABEN, J LINDSAY BELL CLEANER Unavailable Unavailable SHABEN, J LINDSAY BELL CLEANER Unavailable Unavailable SHABEN, J LINDSAY BELL CLEANER Unavailable Unavailable SHABEN, J LINDSAY BELL CLEANER Unavailable Unavailable SHABEN, J LINDSAY BELL CLEANER Unavailable Unavailable SHABEN, J LINDSAY BELL CLEANER Unavailable Unavailable SHABEN, J LINDSAY BELL CLEANER Unavailable Unavailable SHABEN, J LINDSAY BELL CLEANER Unavailable Unavailable SHABEN, J LINSDAY BELL CLEANER Unavailable Unavailable SHABEN, J LINDSAY BELL CLEANER Unavailable Unavailable SHABEN, J LINDSAY BELL CLEANER Unavailable Unavailable SHABEN, J LINDSAY BELL CLEANER Unavailable Unavailable SHABEN, J LINDSAY BELL CLEANER Unavailable Unavailable SHABEN, J LINDSAY BELL CLEANER Unavailable Unavailable SHABEN, J LINDSAY BELL CLEANER Unavailable Unavailable SHABEN, J LINDSAY BELL CLEANER Unavailable Unavailable SHABEN, J LINDSAY BELL CLEANER Unavailable Unavailable SHABEN, J LINDSAY BELL CLEANER Unavailable Unavailable SHABEN, J LINDSAY BELL CLEANER Unavailable Unavailable SHABEN, J LINDSAY BELL CLEANER Unavailable Unavailable SHABEN, J LINDSAY BELL CLEANER Unavailable Unavailable SHABEN, J LINDSAY BELL CLEANER Unavailable Unavailable SHABEN, J LINDSAY BELL CLEANER Unavailable Unavailable SHABEN, J LINDSAY BELL CLEANER Unavailable Unavailable SHABEN, J LINDSAY BELL CLEANER Unavailable Unavailable SHABEN, J LINDSAY BELL CLEANER Unavailable Unavailable SHABEN, J LINDSAY BELL CLEANER Unavailable Unavailable SHABEN, J LINDSAY BELL CLEANER Unavailable Unavailable SHABEN, J LINDSAY BELL CLEANER Unavailable Unavailable SHABEN, J LINDSAY BELL CLEANER Unavailable Unavailable SHABEN, J LINDSAY BELL CLEANER Unavailable Unavailable SHABEN, J LINDSAY BELL CLEANER Unavailable Unavailable SHABEN, J LINDSAY BELL CLEANER Unavailable Unavailable SHABEN, J LINDSAY BELL CLEANER Unavailable Unavailable SHABEN, J LINDSAY BELL CLEANER Unavailable Unavailable SHABEN, J LINDSAY BELL CLEANER Unavailable Unavailable SHABEN, J LINDSAY BELL CLEANER Unavailable Unavailable Tohtz, A Magdiel CHONG Unavailable Unavailable Tohtz, A Magdiel CHONG Unavailable Unavailable Tohtz, A Magdiel CHONG Unavailable Unavailable Tohtz, A Magdiel CHONG Unavailable Unavailable Tohtz, A Magdiel CHONG Unavailable Unavailable Tohtz, A Magdiel CHONG Unavailable Unavailable Tohtz, A Magdiel CHONG Unavailable Unavailable Re-disclosure Warning The records that you are about to access may contain information from federally-assisted alcohol or drug abuse programs. If such information is present, then the following federally mandated warning applies: This information has been disclosed to you from records protected by federal confidentiality rules (42 CFR part 2). The federal rules prohibit you from making any further disclosure of this information unless further disclosure is expressly permitted by the written consent of the person to whom it pertains or as otherwise permitted by 42 CFR part 2. A general authorization for the release of medical or other information is NOT sufficient for this purpose. The Federal rules restrict any use of the information to criminally investigate or prosecute any alcohol or drug abuse patient.The records that you are about to access may contain highly sensitive health information, the redisclosure of which is protected by Article 27-F of the [place] State Public Health law. If you continue you may have access to information: Regarding HIV / AIDS; Provided by facilities licensed or operated by the [facility] Office of Mental Health; or Provided by the [facility] Office for People With Developmental Disabilities. If such information is present, then the following [facility] mandated warning applies: This information has been disclosed to you from confidential records which are protected by state law. State law prohibits you from making any further disclosure of this information without the specific written consent of the person to whom it pertains, or as otherwise permitted by law. Any unauthorized further disclosure in violation of state law may result in a fine or correction sentence or both. A general authorization for the release of medical or other information is NOT sufficient authorization for further disc losure. Advance Directives Directive Description Manager Transit Event Operations Manager Status Observation Descr iption Data Source(s) Ebola Screening Performed completed Ebol a Screening [facility] Note: Within the last month, have you tr aveled outside of the [place]? -NO packet given Pt Bill of Rights, Priv Prac, Ad Dir completed packet given Pt Bill of Rights, Priv Prac, Ad Dir DEVAN ([facility]) Note: Pt declined AD packet Allergies and Adverse Reactions Type Description Substance Reaction Status Data Source(s ) Drug allergy fentanyl fentanyl ADDITIONAL UNSPECIFIED [facility] Drug allergy codeine Codeine rash and hives [facility] DRUG INGREDI CODEINE Codeine [facility] Encounters Encounter Providers Location Date Indications Data Source(s ) Outpatient Attender: LISA OLVERA DO 08/11/2020 12:00:0 0 AM [facility] Unknown<td ID="encounterTypeDescriptionI D0">No Show-No Call</td><td>Lindsay Garrett NP</td><td></td><td>07/22/2020</td><td></td> Attender: LINDSAY GARRETT NP 07/22/2020 04:01:00 PM EST - 07/22/2020 11:59:00 PM [facility] ([facility]) Unknown<td ID="encounterTypeDescriptionI D1">Correspondence</td><td>Matilda Morris RN</td><td></td><td>07/14/2020</td><td></td> Attender: Matilda Morris RN 07/14/2020 11:27:00 AM EST - 07/14/2020 11:59:00 PM [facility] ([facility]) Unknown<td ID="encounterTypeDescriptionI D2">Referral Order</td><td>Lindsay Garrett NP</td><td></td><td>07/04/2020</td><td></td> Attender: LINDSAY GARRETT NP 07/04/2020 01:41:00 PM EST - 07/04/2020 11:59:00 PM EST [facility] ([facility]) Outpatient<td ID="encounterTypeDescripti onID3">Hospital Follow-up</td><td>Lindsay Garrett NP</td><td>[facility] [[email or web address]</td><td>06/19/2020</td><td><content ID="encounterDiagnosisID3-0">Hypertension (systemic)</content>, <content ID="encounterDiagnosisID3-1">Taking Medication For Diabetes Long-term Use of Insulin</content>, <content ID="encounterDiagnosisID3-2">Hyperlipidemia</conten t>, <content ID="encounterDiagnosisID3-3">Diabetes Mellitus Type 2 with Manifestations</content>, <content ID="encounterDiagnosisID3-4">Chronic Obstructive Pulmonary Disease</content>, <content ID="encounterDiagnosisID3- 5">Depression</content>, <content ID="encounterDiagnosisID3-6">Ectropion Left Eye</content></td> Attender: LINDSAY GARRETT NP [facility] [[email or web address]] 06/19/2020 02:39:00 PM EST - 06/19/2020 04:07:00 PM EST Ectropion Left EyeDiabetes Mellitus Type 2 with ManifestationsTaking Medication For Diabetes Long-term Use of InsulinEctropion Left EyeDiabetes Mellitus Type 2 with ManifestationsTaking Medication For Diabetes Long-term Use of InsulinChronic Obstructive Pulmonary DiseaseChronic Obstructive Pulmonary DiseaseHyperlipidemiaHyperlipidemiaDepressionHypertension (systemic)DepressionHypertension (systemic) DEVAN ([facility]) Ectropion Left Eye Diabetes Mellitus Type 2 with Manifestat ions Taking Medication For Diabetes Long-term Use of Insulin Ectropion Left Eye Diabetes Mellitus Type 2 with Manifestat ions Taking Medication For Diabetes Long-term Use of Insulin Chronic Obstructive Pulmonary Disease Chronic Obstructive Pulmonary Disease Hyperlipidemia Hyperlipidemia Depression Hypertension (systemic) Depression Hypertension (systemic) Unknown<td ID="encounterTypeDescriptionI D4">Chart Prep</td><td>Sonya Lopez RN</td><td></td><td>06/18/2020</td><td></td> Attender: Sonya Lopez RN 06/18/2020 09:47:00 AM EST - 06/18/2020 11:59:00 PM EST [facility] ([facility]) Outpatient Attender: Maureen Riggs NP 06/16/2020 01:00:0 0 PM EST [facility] Unknown<td ID="encounterTypeDescriptionI D5">Referral Order</td><td>Lindsay Garrett NP</td><td></td><td>06/05/2020</td><td></td> Attender: LINDSAY GARRETT NP 06/05/2020 09:48:00 AM EST - 06/05/2020 11:59:00 PM EST [facility]AN ([facility]) Outpatient Attender: Sarah Brennan MOLD BURNER 020 02:00:00 PM EST Therapy [facility] Outpatient<td><content ID="_[id number]">Office Visit</content>
<content><content styleCode="xLabel xSecondary">Encounter Reason</content>: <content ID="_[id number]" styleCode="xSecondary">COPD - The referring provider is Lindsay Garrett NP. The last office visit was 11 month(s) ago. No changes in management were made at the last visit. The Gold Classification is Stage 4: Very Severe COPD. Symptoms include dyspnea on exertion, while symptoms do not include dyspnea at rest, wheezing, non-pr oductive cough, productive cough, clear sputum production, colored sputum production, increased sputum production or change in sputum quality. Onset was gradual year(s) ago. The patient describes this as moderate in severity and unchanged. Symptoms are exacerbated by activity. Symptoms are relieved by inhaler use, use of a nebulizer, supplemental oxygen, rest and the upright position, while symptoms are not relieved by recumbency. Associated symptoms do not include fever, weakness, general malaise, hemoptysis, leg edema, orthopnea, upper respiratory infection symptoms, chest pain or altered mental status. Current treatment includes inhaled albuterol, inhaled long-acting beta-2 agonists, inhaled anticholinergics, inhaled corticosteroids, Daliresp and supplemental oxygen. By report there is good compliance with treatment, good tolerance of treatment and good symptom control. Pertinent medical history includes smoking (has quit), oxygen dependency and obstructive sleep apnea, while pertinent medical history does not include smoking (currently), steroid dependency, asthma, prior intubation and ventilator therapy, tracheostomy, pneumonia, congestive heart failure, lung cancer or impaired immunity. The patient is currently able to do activities of daily living with limitations and unable to work (on SSI disability).</content><content styleCode="xSecondary">, </content><content [id number]" styleCode="xSecondary"> [ADDITIONAL REASON] Sleep follow up - The patient gets approximately 6 hours of sleep per night. Current treatment includes CPAP therapy, weight loss and good sleep hygiene. By report there is good compliance with treatment, good tolerance of treatment and good symptom control. The patient describes this as improving. Associated symptoms include shortness of breath, while associated symptoms do not include morning headaches, nocturia or depression. Associated conditions include hypertension. </content></content>
<content><content styleCode="xSecondary xLabel">Encounter Diagnosis</content>: <content ID="_[id number]" styleCode="xSecondary">COPD (CHRONIC OBSTRUCTIVE PULMONARY DISEASE)</content><content styleCode="xSecondary">, </content><content [id number]" styleCode="xSecondary">SLEEP APNEA</content><content styleCode="xSecondary">, </content><content [id number]" styleCode="xSecondary">HYPOXEMIA</content><content styleCode="xSecondary">, </content><content [id number]" styleCode="xSecondary">ECTROPION OF LEFT LOWER EYELID</content></content></td><td><content styleCode="xSecondary">26-May-2020 13:00 </content><content styleCode="xLabel xSecondary"> To </content><content styleCode="xSecondary">26-May-2020 13:33</content>
<content styleCode="xSecondary">[facility] Office</content></td><td></td> [facility] Office 05/26/2020 01:00:00 PM EDT - 05/26/2020 01:33:30 PM EDT [ADDITIONAL REASON] Sleep follow up - Th e patient gets approximately 6 hours of sleep per night. Current treatment includes CPAP therapy, weight loss and good sleep hygiene. By report there is good compliance with treatment, good tolerance of treatment and good symptom control. The patient describes this as improving. Associated symptoms include shortness of breath, while associated symptoms do not include morning headaches, nocturia or depression. Associated conditions include hypertension.COPD - The referring provider is Lindsay Garrett NP. The last office visit was 11 month(s) ago. No changes in management were made at the last visit. The Gold Classification is Stage 4: Very Severe COPD. Symptoms include dyspnea on exertion, while symptoms do not include dyspnea at rest, wheezing, non-productive cough, productive cough, clear sputum production, colored sputum production, increased sputum production or change in sputum quality. Onset was gradual year(s) ago. The patient describes this as moderate in severity and unchanged. Symptoms are exacerbated by activity. Symptoms are relieved by inhaler use, use of a nebulizer, supplemental oxygen, rest and the upright position, while symptoms are not relieved by recumbency. Associated symptoms do not include fever, weakness, general malaise, hemoptysis, leg edema, orthopnea, upper respiratory infection symptoms, chest pain or altered mental s tatus. Current treatment includes inhaled albuterol, inhaled long-acting beta-2 agonists,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 1 MG Oral Tablet 12/07/2019 12:00:00 AM EDT [place] ([facility]) Lorazepam 1 MG Oral Tablet 11/08/2019 12:00:00 AM [facility] ([facility]) 200 ACTUAT Albuterol 0.09 MG/ACTUAT Metered Dose Inhal er [Ventolin] 10/11/2019 12:00:00 AM [facility] ([facility]) 200 ACTUAT Albuterol 0.09 MG/ACTUAT Metered Dose Inhal er [Ventolin] 10/11/2019 12:00:00 AM [facility] ([facility]) Albuterol 0.83 MG/ML Inhalant Solution 10/03/2019 12:00:00 AM [facility] ([facility]) Aspirin 81 MG Chewable Tablet 10/03/2019 12:00:00 AM [facility] ([facility]) 30 ACTUAT fluticasone furoate 0.2 MG/ACTUAT Dry Powder Inhaler [Arnuity] 10/03/2019 12:00:00 AM EST [place] ([facility]) 200 ACTUAT Albuterol 0.09 MG/ACTUAT Metered Dose Inhal er [Ventolin] 10/03/2019 12:00:00 AM [facility] ([facility]) Lorazepam 1 MG Oral Tablet 09/20/2019 12:00:00 AM [facility] ([facility]) Stiolto Respimat 2.5-2.5 MCG/ACT Inhalation Aerosol So lution 09/19/2019 12:00:00 AM EST [place] ([facility]) 30 ACTUAT fluticasone furoate 0.2 MG/ACTUAT Dry Powder Inhaler [Arnuity] 07/12/2019 12:00:00 AM EST [facility] 24 HR Metformin hydrochloride 500 MG Extended Release Oral Tablet 07/10/2019 12:00:00 AM EST [facility] ([facility]) Lorazepam 1 MG Oral Tablet 07/10/2019 12:00:00 AM EST [facility] ([facility]) Stiolto Respimat 2.5-2.5 MCG/ACT Inhalation Aerosol So lution 04/30/2019 12:00:00 AM EDT [facility] ([facility]) Trelegy Ellipta 100-62.5-25MCG/INH Inhalation Aerosol Powder Breath Activated 03/22/2019 12:00:00 AM EDT [facility] ([facility]) magnesium citrate 58.2 MG/ML Oral Solution 03/22/2019 12:00:00 AM E DT [facility] ([facility]) valacyclovir 1000 MG Oral Tablet [Valtrex] 03/22/2019 12:00:00 AM E [facility] ([facility]) Albuterol 0.83 MG/ML Inhalant Solution 12/21/2018 12:00:00 AM EDT [facility] ([facility]) 200 ACTUAT Albuterol 0.09 MG/ACTUAT Metered Dose Inhal er [Ventolin] 12/21/2018 12:00:00 AM EDT [facility] ([facility]) Aspirin 81 MG Chewable Tablet 07/05/2018 12:00:00 AM EST [place] ([facility])
--- OUTSIDE RECORDS SUMMARY | 2020-09-19 15:12 | CCD ---
Author Author [facility] Address [address] [place] [address] Phone Care Team Providers Care Surfacer Name Role Phone Deejay CHONG Cardio, Tevin Unavailable [phone] Pulmonary Health, Physician Unavailable [phone] Giovanny CHONG, Tevin Unavailable [phone] Gerry MIMS, Lindsay Orozco PP [phone] Jeevan Choi MD Unavailable [phone] Adam CHONG, Kim Unavailable [phone] Reason for Referral No Reason for Referral Recorded Problems Includes: Active, inactive, and resolved Problems All Visits Effective Date(s) Provider Condition Stat Unspecified urinary incontinence 12/21/2018 Lindsay pendleton NP Active Note: Unchanged Hepatitis, C Virus 01/20/2017 Lindsay Garrett NP Active Note: Evaluated by Dr. 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 12/29/2016 [place] Nurse Active Note: per cardiology Presence of coronary angioplasty implant and graft 12/29/2016 [place] Nurse Active Note: per cardiology Dyspnea, unspecified 12/29/2016 Lindsay Garrett NP Inactiv e Note: per cardiology Bipolar Disorder Nos 02/19/2016 Lindsay Garrett NP Active Nonorganic Sleep Apnea Obstructive 12/02/2015 Lindsay ward NP Active Snoring 12/02/2015 Lindsay Garrett NP Inactive Acute Myocardial Infarction Inferior Wall 02/25/2015 Lindsay Garrett NP Active Note: 2014 Illiteracy and Low-level Literacy 02/25/2015 Lindsay prince NP Active Anxiety Disorder Nos 04/04/2014 Lindsay Garrett NP Active Asthma 04/04/2014 Lindsay Garrett NP Active ACUTE AND CHRONIC RESPIRATORY FAILURE 04/03/2014 Lindsay Garrett NP Inactive Note: 03/14 ACUTE MYOCARDIAL INFARCTION NON-ST ELEVATION 04/03/2014 Daniela Garrett NP Active Note: R/T Respiratory failur e/ cardiac arrest March 2014 Cardiac Arrest 04/03/2014 Lindsay Garrett NP Active Note: 03/14 Chronic Obstructive Pulmonary Disease 04/03/2014 Lindsay Garrett NP Active Note: Uses oxygen Drug Toxicity Narcotics Synthetic 04/03/2014 [place] Nurse Active Note: spice Hepatitis, C Virus - Acute 04/03/2014 Lindsay Garrett NP I nactive Unspecified Chest Pain 04/03/2014 Lindsay Garrett NP Activ e Note: Followed by cardiology ; Dr. Choi Hyperlipidemia 04/27/2013 Lindsay Garrett NP Active Note: Unchanged Vitamin D Deficiency 04/27/2013 Evelyn Alexander NP Active Note: Unchanged Diabetes Mellitus 04/24/2013 Lindsay Grarett NP Active Note: Hgba1c 6.1 August 20; 6.02 January 2015; 5.08 June 2015: Hgba1c 6.02 October 2015: Hgba1c 5.08 January 2016: Hgba1c 5.05 May 2016: Hgba1c 5.04 July 2016: Hgba1c 5.09 September 2016: Hgba1c 6.03 January 2017: Hgba1c 5.06 June 2017: Hgba1c 5.06 October 2017: Hgba1c 6.January: Hgba1c 6.01 July 2018: Hgba1c 6.04 March 2019: Hgba1c 5.08 October 2019 Depression 04/20/2013 Lindsay Garrett NP Active Emphysema 04/20/2013 Lindsay Garrett NP Active Hepatitis Chronic 04/20/2013 Lindsay Garrett NP Inactive Note: Reports hx of Hep C - referred to Dr. Baltazar Hypertension (systemic) 04/20/2013 Lindsay Garrett NP Acti ve Plan of Treatment Pending Tests Order Diagnosis Results Due Ordering Provi compa Lab (CBC)COMPLETE BLOOD CNT 03/25/20 Farzaneh Garrett NP Lab COMPREHENSIVE METABOLIC PANEL 03/25/20 Lindsay Garrett NP Lab HEMOGLOBIN A1C 03/25/20 Lindsay ward NP Lab LIPID PANEL 03/25/20 Lindsay pendleton PROP WORKER Lab TSH 03/25/20 Lindsay pendleton PROP WORKER Lab MAGNESIUM 03/25/20 Lindsay pendleton PROP WORKER Lab CT CHEST LOW DOSE LDCT [id number] 07/14/20 Lindsay Garrett NP Referrals To Diagnosis GI HEPATITIS CHRONIC Note: Please refer to Dr. Baltazar's group on [address] per patient request. history of hep C and needs f/up to [facility]. cc all notes to date and labs done recently. THANKs. Evelyn Cardiology Unspecified Chest Pa in Note: Please refer to [facility] GENE. Viktor damian has very uncontrolled HTN and CP with very significant family history of early from [place]. cc my note from 04/20/13 along with EKG done that day. THANKS. Evelyn Cardiology Hypertension Unspeci fied Essential Note: Please refer to terrazzo mechanic helper in [place]. Patient was referred to [facility] and they will not see him as he no showed. I have discussed with patient and advised of importance to f/up and he agrees to keep appt but [facility] will not reschedule him. He has HTN / CP and (+) family history of [place] and early . cc my notes from 04/20/13 and 04/27/13. THANKS. Evelyn GI Acute Hepatitis C Wi thout Hepatic Coma Note: Please refer to GI for evaluation of Hep C. Thanks. Pulmonology Chronic Airway Obstr uction Not Elsewhere Classified Note: Please refer to pulmonology for fo llow up (see recent hospital report). GI Chronic viral hepati tis C Note: Please make appt with Dr. Baltazar f or follow up Urology Urology AMP Unspecified urinary incontinence Note: Please refer to urology, [facility] Unspecified e ctropion of left lower eyelid Note: Please refer to ophthalmology in [facility] Cardiology Jeevan Choi MD Hyperlipidemia, unsp ecified Note: Please refer to Dr. Choi for f ollow up Future Appointments Date Time Location Provider HTN Follow-up 07/22/2020 3:30PM [facility] Edwina Garrett NP HTN Follow-up 08/13/2020 3:30PM [facility] Edwina Garrett NP Findings Encounter Date Instructions for patient Telephonic Encounter with Lindsay Garrett NP 03/25/2020 Ordered return to the clinic if condition worsens or n ew symptoms arise Telephonic Encounter with Lindsay Garrett NP 03/25/2020 Instructions for patient Otoniel is inst ructed to go to ER for further evaluation; his last tetanus was 01/20/17; Hgba1c today is 5.9 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 Chronic Disease Follow-up with Lindsay Garrett NP 10/03/2019 Ordered Clinical summary transmitted to referring provider electronically with reasonable certainty of receipt or receiving provider electronically through [employer] [facility] Chronic Disease Follow-up with Lindsay Garrett NP 10/03/2019 Ordered referred to emergency room - [facility] called and notified of transfer Chronic Disease Follow-up with Lindsay Garrett NP 10/2019 Ordered Clinical summary transmitted to referring provider electronically or receiving provider [facility] Chronic Disease Follow-up with Lindsay Garrett NP 03/22/2019 Ordered Clinical summary transmitted to referring provider electronically or receiving provider electronically through [employer] [facility] Chronic Disease Follow-up with Lindsay Garrett NP 12/21/2018 Ordered Clinical summary transmitted to referring provider electronically or receiving provider [facility] Chronic Disease Follow-up with Lindsay Garrett NP 02/16/2018 Ordered Clinical summary transmitted to referring provider electronically or receiving provider [facility] Chronic Disease Follow-up with Lindsay Garrett NP 10/18/2017 Ordered return to the clinic if condition worsens or n ew symptoms arise Walk-In with Lindsay Garrett NP 03/01/2017 Ordered Transition in care, ozzy monroy provided electronically through [employer] [facility] Walk-In with Lindsay Garrett NP 03/01/2017 Ordered Transition in care, clinical fabián monroy provided electronically through [employer] [facility] Chronic Disease Follow-up with Lindsay Garrett NP 01/20/2017 Ordered follow-up visit 1 month Chronic Disease Follo w-up with Lindsay Garrett NP 06/01/2016 Ordered follow-up visit 4 months Chronic Disease Foll ow-up with Lindsay Garrett NP 01/02/2016 Ordered follow-up visit 3 months Hospital Follow-up with Juancho Garrett NP 10/01/2015 Ordered follow-up visit 3 months Chronic Disease Foll ow-up with Lindsay Garrett NP 06/05/2015 Ordered follow-up visit 3 months Hospital Follow-up with Juancho Garrett NP 02/25/2015 Ordered follow-up visit 1 month Chronic Disease Follo w-up with Lindsay Garrett NP 01/14/2015 Ordered return to the clinic if condition worsens or n ew symptoms arise Chronic Disease Follow-up with Lindsay Garrett NP 01/14/2015 Ordered follow-up visit 3 months Medication Follow-up with Lindsay Garrett NP 08/29/2014 Ordered return to the clinic if condition worsens or n ew symptoms arise Medication Follow-up with Lindsay Garrett NP 05/03/2014 Ordered follow-up visit 1 month Hospital Follow-up with Daniela Garrett NP 04/04/2014 Spent a long time discussing labs with patient and his . Advised to work on diet and exercise. Will start with stopping "white things". Advised to change white bread and pasta to wheat. Change white rice to brown rice. Change white potatos to sweet potatos. Limit sugar in diet and change to artifical sweetners. If he changes this and works on slowly increasing activity this will help alot with his sugar. Because of the diabetes and labs, I want to add lisinopril for renal protection as well as simvastatin to lower cholesterol and for protection of cardiovascular system. I will not increase metoprolol as we are adding lisinopril to help his blood pressure as well. Advised of safe usage and side effects of meds. He will call me if he develops muscle aches or pains with simvastatin or dry cough from lisinopril. Advised also to start aspirin daily. Will recheck labs in 6 weeks. Will give him labslip at next appointment in a month. [facility] . Will forward my note from today and labs for their review. Will also refer to GI for f/up hepatitis. Return in a month for continued close f/up or sooner at anytime as needed. Patient and expressed understanding and agreed with plan Chronic Disease Follow-up with Evelyn Alexander NP 2012 Advised to start paxil daily. Advise d of safe usage and side effects of medicine including but not limited to making symptoms worse. He will call me with any new or worsening symptoms, otherwise will plan on return in 1-2 weeks for close f/up. In terms of breathing, he will start advair daily. Rinse mouth out after use. Can use proair as needed for wheezing. In terms of her blood pressure, he will start metoprolol daily. Will refer to cardiology to establish care and plan on return in a week for close f/up. Advised with any CP, pressure, new or worsening symptoms he will call 911 and go to ER. Patient expressed understanding and agreed with plan. In terms of hernia will refer to surgeon but he needs his blood pressure under better control and cardiac evaluation first. Will hold on referral at this time until next appointment to get cardiac symptoms stable first Meet & Greet New Appointment with Evelyn Alexander NP 04/20/2013 Assessments Includes: Assessments for all patient encounters Findings Encounter Date Chronic obstructive pulmonary disease Hospital Follow- up with Lindsay Garrett NP 06/19/2020 Depression Hospital Follow-up with Lindsay Garrett NP 06/19/2020 Ectropion of the left eye Hospital Follow-up with Lindsay Garrett NP 06/19/2020 Hyperlipidemia Hospital Follow-up with Lindsay Garrett NP 06/19/2020 Hypertension Hospital Follow-up with Lindsay Garrett NP 06/19/2020 No long-term use of insulin Hospital Follow-up with Lindsay Garrett NP 06/19/2020 Type 2 diabetes mellitus with manifestations Hospital Follow-up with Lindsay Garrett NP 06/19/2020 Anxiety disorder NOS Telephonic Encounter with Lindsay ward NP 03/25/2020 Asthma Telephonic Encounter with Lindsay prince NP 03/25/2020 Chronic obstructive pulmonary disease Telephonic Encou nter with Lindsay Garrett NP 03/25/2020 Depression Telephonic Encounter with Lindsay prince NP 03/25/2020 Diabetes mellitus Telephonic Encounter with Lindsay prince NP 03/25/2020 Emphysema Telephonic Encounter with Lindsay prince NP 03/25/2020 Hyperlipidemia Telephonic Encounter with Lindsay prince NP 03/25/2020 Hypertension Telephonic Encounter with Lindsay prince NP 03/25/2020 Obstructive sleep apnea Telephonic Encounter with Lindsay Garrett NP 03/25/2020 Downs Chronic Disease Follow-up with Lindsay Garrett NP 10/03/2019 Downs of the face, head, or neck Chronic Disease Follo w-up with Lindsay Garrett NP 10/03/2019 Chronic obstructive pulmonary disease Chronic Disease Follow-up with Lindsay Garrett NP 10/03/2019 Hyperlipidemia Chronic Disease Follow-up with Lindsay Garrett NP 10/03/2019 Hypertension Chronic Disease Follow-up with Lindsay Garrett NP 10/03/2019 No long-term use of insulin Chronic Disease Follow-up with Francisco Garrett NP 10/03/2019 Thermal burn of eyelid Chronic Disease Follow-up with Lindsay Garrett NP 10/03/2019 Type 2 diabetes mellitus with manifestations Chronic D isease Follow-up with Lindsay Garrett NP 10/03/2019 Chronic obstructive pulmonary disease Chronic Disease Follow-up with Lindsay Garrett NP 03/22/2019 Herpes zoster (shingles) Chronic Disease Follow-up with Farzaneh Garrett NP 03/22/2019 Hyperlipidemia Chronic Disease Follow-up with Lindsay Garrett NP 03/22/2019 Hypertension Chronic Disease Follow-up with Lindsay Garrett NP 03/22/2019 No long-term use of insulin Chronic Disease Follow-up with Francisco Garrett NP 03/22/2019 Type 2 diabetes mellitus without complication Chronic Disease Follow-up with Lindsay Garrett NP 03/22/2019 Cerumen impaction in both ears Chronic Disease Follow- up with Lindsay Garrett NP 12/21/2018 Chronic obstructive pulmonary disease Chronic Disease Follow-up with Lindsay Garrett NP 12/21/2018 Hyperlipidemia Chronic Disease Follow-up with Lindsay Garrett NP 12/21/2018 Hypertension Chronic Disease Follow-up with Lindsay Garrett NP 12/21/2018 No long-term use of insulin Chronic Disease Follow-up with Francisco Garrett NP 12/21/2018 Type 2 diabetes mellitus without complication Chronic Disease Follow-up with Lindsay Garrett NP 12/21/2018 Urinary incontinence Chronic Disease Follow-up with Lindsay Garrett NP 12/21/2018 Chronic obstructive pulmonary disease Chronic Disease Follow-up with Lindsay Garrett NP 07/14/2018 Hyperlipidemia Chronic Disease Follow-up with Lindsay Garrett NP 07/14/2018 Hypertension Chronic Disease Follow-up with Lindsay Garrett NP 07/14/2018 No long-term use of insulin Chronic Disease Follow-up with Francisco Garrett NP 07/14/2018 Type 2 diabetes mellitus without complication Chronic Disease Follow-up with Lindsay Garrett NP 07/14/2018 Anxiety disorder NOS Chronic Disease Follow-up with Lindsay Garrett NP 02/16/2018 Chronic obstructive pulmonary disease Chronic Disease Follow-up with Lindsay Garrett NP 02/16/2018 Hyperlipidemia Chronic Disease Follow-up with Lindsay Garrett NP 02/16/2018 Hypertension Chronic Disease Follow-up with Lindsay Garrett NP 02/16/2018 Insomnia disorder Chronic Disease Follow-up with Lindsay Garrett NP 02/16/2018 No long-term use of insulin Chronic Disease Follow-up with Francisco Garrett NP 02/16/2018 Type 2 diabetes mellitus with manifestations Chronic D isease Follow-up with Lindsay Garrett NP 02/16/2018 Hepatitis, C virus Chronic Disease Follow-up with Lindsay Garrett NP 10/18/2017 Hyperlipidemia Chronic Disease Follow-up with Lindsay Garrett NP 10/18/2017 Hypertension Chronic Disease Follow-up with Lindsay Garrett NP 10/18/2017 No long-term use of insulin Chronic Disease Follow-up with Francisco Garrett NP 10/18/2017 Type 2 diabetes mellitus with manifestations Chronic D isease Follow-up with Lindsay Garrett NP 10/18/2017 Chronic obstructive pulmonary disease Chronic Disease Follow-up with Lindsay Garrett NP 06/17/2017 Hyperlipidemia Chronic Disease Follow-up with Lindsay Garrett NP 06/17/2017 Hypertension Chronic Disease Follow-up with Lindsay Garrett NP 06/17/2017 No long-term use of insulin Chronic Disease Follow-up with Francisco Garrett NP 06/17/2017 Type 2 diabetes mellitus without complication Chronic Disease Follow-up with Lindsay Garrett NP 06/17/2017 Anxiety disorder NOS Walk-In with Lindsay Garrett NP 2016 Bipolar disorder NOS Walk-In with Lindsay Garrett NP 2016 Chronic obstructive pulmonary disease with exacerbatio n Walk-In with Lindsay Garrett NP 03/01/2017 Anxiety disorder NOS Chronic Disease Follow-up with Lindsay Garrett NP 01/20/2017 Chronic obstructive pulmonary disease Chronic Disease Follow-up with Lindsay Garrett NP 01/20/2017 Depression Chronic Disease Follow-up with Lindsay Garrett NP 01/20/2017 Hepatitis, C virus Chronic Disease Follow-up with Lindsay Garrett NP 01/20/2017 Hyperlipidemia Chronic Disease Follow-up with Lindsay Garrett NP 01/20/2017 Hypertension Chronic Disease Follow-up with Lindsay Garrett NP 01/20/2017 No long-term use of insulin Chronic Disease Follow-up with Farncisco Garrett NP 01/20/2017 Type 2 diabetes mellitus Chronic Disease Follow-up with Farzaneh Garrett NP 01/20/2017 Chronic obstructive pulmonary disease Chronic Disease Follow-up with Lindsay Garrett NP 09/01/2016 Emphysema Chronic Disease Follow-up with Lindsay Garrett NP 09/01/2016 Hyperlipidemia Chronic Disease Follow-up with Lindsay Garrett NP 09/01/2016 Hypertension Chronic Disease Follow-up with Lindsay Garrett NP 09/01/2016 No long-term use of insulin Chronic Disease Follow-up with Francisco Garrett NP 09/01/2016 Obstructive sleep apnea Chronic Disease Follow-up with Edwina Garrett NP 09/01/2016 Type 2 diabetes mellitus Chronic Disease Follow-up with Farzaneh Garrett NP 09/01/2016 Anxiety disorder NOS Chronic Disease Follow-up with Lindsay Garrett NP 07/01/2016 Chronic obstructive pulmonary disease Chronic Disease Follow-up with Lindsay Garrett NP 07/01/2016 Depression Chronic Disease Follow-up with Lindsay Garrett NP 07/01/2016 Hyperlipidemia Chronic Disease Follow-up with Lindsay Garrett NP 07/01/2016 Hypertension Chronic Disease Follow-up with Lindsay Garrett NP 07/01/2016 No long-term use of insulin Chronic Disease Follow-up with Francisco Garrett NP 07/01/2016 Type 2 diabetes mellitus Chronic Disease Follow-up with Farzaneh Garrett NP 07/01/2016 Anxiety disorder NOS Chronic Disease Follow-up with Lindsay Garrett NP 06/01/2016 Asthma Chronic Disease Follow-up with Lindsay Garrett NP 06/01/2016 Chronic obstructive pulmonary disease with exacerbatio n Chronic Disease Follow- up with Lindsay Garrett NP 06/01/2016 Depression Chronic Disease Follow-up with Lindsay Garrett NP 06/01/2016 Hypertension Chronic Disease Follow-up with Lindsay Garrett NP 06/01/2016 Anxiety disorder NOS Same Day Acute with Lindsay Garrett NP 05/20/2016 Bipolar disorder NOS Same Day Acute with Lindsay Garrett NP 05/20/2016 No long-term use of insulin Same Day Acute with Lindsay angulo NP 05/20/2016 Sinus bradycardia Same Day Acute with Lindsay Garrett NP 05/20/2016 Type 2 diabetes mellitus Same Day Acute with Lindsay pendleton NP 05/20/2016 Anxiety disorder NOS Chronic Disease Follow-up with Lindsay Garrett NP 01/02/2016 Chronic obstructive pulmonary disease Chronic Disease Follow-up with Lindsay Garrett NP 01/02/2016 Depression Chronic Disease Follow-up with Lindsay Garrett NP 01/02/2016 Hyperlipidemia Chronic Disease Follow-up with Lindsay Garrett NP 01/02/2016 Hypertension Chronic Disease Follow-up with Lindsay Garrett NP 01/02/2016 No long-term use of insulin Chronic Disease Follow-up with Francisco Garrett NP 01/02/2016 Type 2 diabetes mellitus Chronic Disease Follow-up with Farzaneh Garrett NP 01/02/2016 Chronic obstructive pulmonary disease Hospital Follow- up with Lindsay Garrett NP 10/01/2015 Hyperlipidemia Hospital Follow-up with Lindsay Garrett NP 10/01/2015 Hypertension Hospital Follow-up with Lindsay Garrett NP 10/01/2015 No long-term use of insulin Hospital Follow-up with Lindsay Garrett NP 10/01/2015 Respiratory failure Hospital Follow-up with Lindsay Garrett NP 10/01/2015 Type 2 diabetes mellitus Hospital Follow-up with Lindsay lauren NP 10/01/2015 Vitamin D deficiency Hospital Follow-up with Lindsay pendleton NP 10/01/2015 Anxiety disorder NOS Chronic Disease Follow-up with Lindsay Garrett NP 06/05/2015 Chronic hepatitis Chronic Disease Follow-up with Lindsay Garrett NP 06/05/2015 Chronic obstructive pulmonary disease Chronic Disease Follow-up with Lindsay Garrett NP 06/05/2015 Depression Chronic Disease Follow-up with Lindsay Garrett NP 06/05/2015 Hyperlipidemia Chronic Disease Follow-up with Lindsay Garrett NP 06/05/2015 Hypertension Chronic Disease Follow-up with Lindsay Garrett NP 06/05/2015 No long-term use of insulin Chronic Disease Follow-up with Francisco Garrett NP 06/05/2015 Type 2 diabetes mellitus Chronic Disease Follow-up with Farzaneh Garrett NP 06/05/2015 Acute myocardial infarction of the inferior wall [facility]pi [facility] Follow-up with Lindsay Garrett NP 02/25/2015 Benign essential hypertension Hospital Follow-up with Lindsay Garrett NP 02/25/2015 Hyperlipidemia Hospital Follow-up with Lindsay Garrett NP 02/25/2015 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 Hospital Follow-up with Lindsay Garrett NP 02/25/2015 Type 2 diabetes mellitus Hospital Follow-up with Lindsay lauren NP 02/25/2015 Anxiety disorder NOS Chronic Disease Follow-up with Lindsay Garrett NP 01/14/2015 Benign essential hypertension Chronic Disease Follow-u p with Lindsay Garrett NP 01/14/2015 Chronic obstructive pulmonary disease with acute exac erbation Chronic Disease Follow-up with Lindsay Garrett NP 01/14/2015 Hyperlipidemia Chronic Disease Follow-up with Lindsay Garrett NP 01/14/2015 Type 2 diabetes mellitus Chronic Disease Follow-up with Farzaneh Garrett NP 01/14/2015 Anxiety disorder NOS Medication Follow-up with Lindsay ward NP 08/29/2014 Benign essential hypertension Medication Follow-up with Farzaneh Garrett NP 08/29/2014 Depression Medication Follow-up with Lindsay prince NP 08/29/2014 Hyperlipidemia Medication Follow-up with Lindsay prince PROP WORKER 08/29/2014 Type 2 diabetes mellitus Medication Follow-up with Lindsay Garrett NP 08/29/2014 Anxiety disorder NOS Medication Follow-up with Lindsay ward NP 05/03/2014 Chronic obstructive pulmonary disease Medication Follo w-up with Lindsay Garrett NP 05/03/2014 Diabetes mellitus Medication Follow-up with Lindsay prince PROP WORKER 05/03/2014 Hypertension Medication Follow-up with Lindsay prince NP 05/03/2014 Benign essential hypertension Hospital Follow-up with Lindsay Garrett NP 04/04/2014 Chronic hepatitis Hospital Follow-up with Lindsay Garrett NP 04/04/2014 Chronic obstructive pulmonary disease Hospital Follow- up with Lindsay Garrett NP 04/04/2014 Depression Hospital Follow-up with Lindsay Garrett NP 04/04/2014 Hyperlipidemia Hospital Follow-up with Lindsay Garrett NP 04/04/2014 Type 2 diabetes mellitus Hospital Follow-up with Lindsay lauren NP 04/04/2014 Hypertension Referral Order with Evelyn Alexander PROP WORKER 09/2013 Chronic hepatitis Chronic Disease Follow-up with Evelyn L Hi pple PROP WORKER 04/27/2013 Depression Chronic Disease Follow-up with Evelyn L Hi pple PROP WORKER 04/27/2013 Emphysema Chronic Disease Follow-up with Evelyn L Hi pple PROP WORKER 04/27/2013 Hyperlipidemia Chronic Disease Follow-up with Evelyn Gibson Hi pple PROP WORKER 04/27/2013 Hypertension Chronic Disease Follow-up with Evelyn L Hi pple PROP WORKER 04/27/2013 Type 2 diabetes mellitus Chronic Disease Follow-up with Evelyn Alexander NP 04/27/2013 Vitamin D deficiency Chronic Disease Follow-up with Evelyn prado NP 04/27/2013 Chest pain Meet & Greet New Appointment with Evelyn Alexander NP 04/20/2013 Chronic hepatitis Meet & Greet New Appointment with Evelyn Alexander NP 04/20/2013 Emphysema Meet & Greet New Appointment with Evelyn Alexander NP 04/20/2013 Hypertension Meet & Greet New Appointment with Evelyn Alexander NP 04/20/2013 Ventral hernia Meet & Greet New Appointment with Evelyn Alexander NP 04/20/2013 Instructions Instructions not supported for this document typeNo Instructions Recorded Medical Equipment - Implanted Devices Includes: Current and historical DevicesNo Medical Equipment Recorded Medications Includes: Current and historical Medications Current Medications (continue as prescribed) cloNIDine HCl 0.2 MG Oral Tablet 06/19/2020 Provide r: Lindsay Garrett NP Diagnosis: twice a day QUEtiapine Fumarate 100 MG Oral Tablet 06/19/2020 P rovider: Diagnosis: 1 tab daily traZODone HCl 100 MG Oral Tablet 06/19/2020 Provide r: Diagnosis: Carvedilol 25 MG Oral Tablet 06/19/2020 Provider: Jeevan Choi MD Diagnosis: bid FLUoxetine HCl 20 MG Oral Capsule 06/19/2020 Provid er: Diagnosis: rx by mental health Furosemide 40 MG Oral Tablet 06/19/2020 Provider: Diagnosis: metFORMIN HCl ER 750 MG Oral Tablet Extended Release 24 Hour 06/19/2020 Provider: Diagnosis: Atorvastatin Calcium 20 MG Oral Tablet 06/19/2020 P rovider: Diagnosis: Daliresp 500 MCG Oral Tablet 06/19/2020 Provider: Diagnosis: Trelegy Ellipta 100-62.5-25 MCG/INH Inhalation Aerosol Powder Breath Activated 06/19/2020 Provider: Diagnosis: Lisinopril 20 MG Oral Tablet 06/19/2020 Provider: Diagnosis: rx by [facility] LORazepam 1 MG Oral Tablet 05/30/2020 Provider: Lindsay Garrett NP Diagnosis: Take one tablet po every 8 hours MDD=3 tablets Aspirin 81 MG Oral Tablet Chewable 04/25/2020 Provi compa: Lindsay Garrett NP Diagnosis: Essential (primary) hypertension once a day Ventolin HFA 108 (90 Base) MCG/ACT Inhalation Aerosol Soluti on 04/03/2020 Provider: Lindsay Garrett NP Diagnosis: Emphysema, unspecifi ed 2 puffs q4h PRN with spacer Dispense generic per ins Albuterol Sulfate (2.5 MG/3ML) 0.083% Inhalation Nebul ization solution 03/25/2020 Provider: Lindsay Garrett NP Diagnosis: 1 vial by nebulizer every 4 hours as needed OneTouch Ultra Blue In Vitro Strip 12/21/2018 Provi compa: Lindsay Garrett NP Diagnosis: Essential (primary) hypertension Test BID as neededDX: E11.9 Past Medications on file Simvastatin 10 MG Oral Tablet 06/19/2020 - 06/19/2020 Provid er: Jeevan Choi MD Diagnosis: hs Admelog 100 UNIT/ML Subcutaneous Solution 06/19/2020 - 06/19 Provider: Diagnosis: Lisinopril 20 MG Oral Tablet 06/19/2020 - 06/19/2020 Provide r: Diagnosis: Enalapril Maleate 20 MG Oral Tablet 06/19/2020 - 06/19/2020 Provider: Jeevan Choi MD Diagnosis: bid amLODIPine Besylate 10 MG Oral Tablet 06/19/2020 - 0 Provider: Diagnosis: 1 tab po dailyper cardiology cloNIDine HCl 0.2 MG Oral Tablet 06/19/2020 - 06/19/2020 Pro vider: Jeevan Choi MD Diagnosis: QUEtiapine Fumarate 100 MG Oral Tablet 06/19/2020 - 06/19/20 20 Provider: Diagnosis: 1 1/2 tabs daily Arnuity Ellipta 200 MCG/ACT Inhalation Aerosol Powder Breath Activated 04/25/2020 - 06/19/2020 Provider: Lindsay Garrett NP Diagnosis: 1 puff daily - RINSE AFTER metFORMIN HCl ER 500 MG Oral Tablet Extended Release 2 4 Hour 04/25/2020 - 06/19/2020 Provider: Lindsay Garrett NP Diagnosis: once a day with largest meal of the day LORazepam 1 MG Oral Tablet 04/25/2020 - 05/30/2020 Provider: Lindsay Garrett NP Diagnosis: Take one tablet po every 8 hours MDD=3 tablets Ventolin HFA 108 (90 Base) MCG/ACT IN AERS 04/03/2020 - 09/0 09/2019 Provider: Lindsay J. Shaben PROP WORKER Diagnosis: Emphysema, unspecifi ed 2 puffs q4h PRN with spacer Dispense generic per ins Stiolto Respimat 2.5-2.5 MCG/ACT Inhalation Aerosol So lution 03/25/2020 - 06/19/2020 Provider: Lindsay Garrett PROP WORKER Diagnosis: 2 puffs daily Ventolin HFA 108 (90 Base) MCG/ACT Inhalation Aerosol Solution 03/25/2020 - 04/03/2020 Provider: Lindsay Garrett PROP WORKER Diagnosis: Emphysema, unspecifi ed 2 puffs q4h PRN with spacer BOB LORazepam 1 MG Oral Tablet 03/07/2020 - 04/25/2020 Provider: Lindsay Garrett PROP WORKER Diagnosis: Take one tablet po every 8 hours MDD=3 tablets LORazepam 1 MG Oral Tablet 12/07/2019 - 03/07/2020 Provider: Mariann PATEL Diagnosis: Take one tablet po every 8 hours MDD=3 tablets LORazepam 1 MG Oral Tablet 11/08/2019 - 12/07/2019 Provider: Lindsay Garrett PROP WORKER Diagnosis: Take one tablet po every 8 hours MDD=3 tablets Ventolin HFA 108 (90 Base) MCG/ACT IN AERS 10/11/2019 - 09/29 Provider: Lindsay Garrett PROP WORKER Diagnosis: Emphysema, unspecifi ed 2 puffs q4h PRN with spacer BOB Ventolin HFA 108 (90 Base) MCG/ACT Inhalation Aerosol Solution 10/11/2019 - 03/25/2020 Provider: Lindsay Garrett PROP WORKER Diagnosis: Emphysema, unspecifi ed 2 puffs q4h PRN with spacer BOB amLODIPine Besylate 10 MG Oral Tablet 10/03/2019 - 0 Provider: Diagnosis: 1 tab po dailyper cardiology Ventolin HFA 108 (90 Base) MCG/ACT Inhalation Aerosol Solution 10/03/2019 - 10/11/2019 Provider: Lindsay Garrett PROP WORKER Diagnosis: Emphysema, unspecifi ed 2 puffs q4h PRN with spacer Arnuity Ellipta 200 MCG/ACT Inhalation Aerosol Powder Breath Activated 10/03/2019 - 04/25/2020 Provider: Lindsay Garrett PROP WORKER Diagnosis: 1 puff daily - RINSE AFTER Aspirin 81 MG Oral Tablet Chewable 10/03/2019 - 04/25/2020 P rovider: Lindsay Garrett NP Diagnosis: Essential (primary) hypertension once a day Albuterol Sulfate (2.5 MG/3ML) 0.083% Inhalation Nebul ization solution 10/03/2019 - 03/25/2020 Provider: Lindsay Garrett NP Diagnosis: 1 vial by nebulizer every 4 hours as needed traZODone HCl 100 MG Oral Tablet 10/03/2019 - 06/19/2020 Pro vider: Diagnosis: Simvastatin 10 MG Oral Tablet 10/03/2019 - 06/19/2020 Provid er: Jeevan Choi MD Diagnosis: hs QUEtiapine Fumarate 100 MG Oral Tablet 10/03/2019 - 06/19/20 Provider: Diagnosis: 1 1/2 tabs daily FLUoxetine HCl 20 MG Oral Capsule 10/03/2019 - 06/19/2020 Pr ovider: Diagnosis: rx by mental health Enalapril Maleate 20 MG Oral Tablet 10/03/2019 - 06/19/2020 Provider: Jeevan Choi MD Diagnosis: bid cloNIDine HCl 0.2 MG Oral Tablet 10/03/2019 - 06/19/2020 Pro vider: Jeevan Choi MD Diagnosis: Carvedilol 25 MG Oral Tablet 10/03/2019 - 06/19/2020 Provide r: Jeevan Choi MD Diagnosis: bid LORazepam 1 MG Oral Tablet 09/20/2019 - 11/08/2019 Provider: Lindsay Garrett NP Diagnosis: Take one tablet po every 8 hours MDD=3 tablets Stiolto Respimat 2.5-2.5 MCG/ACT Inhalation Aerosol So lution 09/19/2019 - 03/25/2020 Provider: Lindsay Garrett NP Diagnosis: 2 puffs daily Arnuity Ellipta 200 MCG/ACT Inhalation Aerosol Powder Breath Activated 07/12/2019 - 10/03/2019 Provider: Lindsay Garrett NP Diagnosis: 1 puff daily - RINSE AFTER LORazepam 1 MG Oral Tablet 07/10/2019 - 09/20/2019 Provider: Lindsay Garrett NP Diagnosis: Take one tablet po every 8 hours MDD=3 tablets metFORMIN HCl ER 500 MG Oral Tablet Extended Release 2 4 Hour 07/10/2019 - 04/25/2020 Provider: Lindsay Garrett NP Diagnosis: once a day with largest meal of the day LORazepam 1 MG Oral Tablet 05/04/2019 - 07/10/2019 Provider: Lindsay Garrett NP Diagnosis: Take one tablet po every 8 hours MDD=3 tablets Arnuity Ellipta 200 MCG/ACT IN AEPB 04/30/2019 - 04/30/2019 Provider: Lindsay Garrett NP Diagnosis: 1 puff daily - RINSE AFTER Arnuity Ellipta 200 MCG/ACT Inhalation Aerosol Powder Breath Activated 04/30/2019 - 07/12/2019 Provider: Lindsay Garrett NP Diagnosis: 1 puff daily - RINSE AFTER Stiolto Respimat 2.5-2.5 MCG/ACT Inhalation Aerosol So lution 04/30/2019 - 09/19/2019 Provider: Lindsay Garrett NP Diagnosis: 2 puffs daily Stiolto Respimat 2.5-2.5 MCG/ACT IN AERS 04/30/2019 - 2018 Provider: Lindsay Garrett NP Diagnosis: 2 puffs daily Carvedilol 25MG Oral Tablet 03/22/2019 - 10/03/2019 Provider : Jeevan Choi MD Diagnosis: bid LORazepam 1MG Oral Tablet 03/22/2019 - 05/04/2019 Provider: Lindsay Garrett NP Diagnosis: Take one tablet po every 8 hours MDD=3 tablets Valtrex 1GM Oral Tablet 03/22/2019 - 10/03/2019 Provider: Lindsay Garrett NP Diagnosis: three times a day Magnesium Citrate 1.745GM/30ML Oral Solution 03/22/2019 - Provider: Lindsay Garrett NP Diagnosis: as directed Trelegy Ellipta 100-62.5-25MCG/INH Inhalation Aerosol Powder Breath Activated 03/22/2019 - 10/03/2019 Provider: Lindsay Garrett NP Diagnosis: 1 puff daily - rinse after amLODIPine Besylate 10MG Oral Tablet 03/22/2019 - 10/03/2019 Provider: Diagnosis: 1 tab po dailyper cardiology Simvastatin 10MG Oral Tablet 03/22/2019 - 10/03/2019 Provide r: Jeevan Choi MD Diagnosis: hs QUEtiapine Fumarate 100MG Oral Tablet 03/22/2019 - 0 Provider: Diagnosis: 1 1/2 tabs daily traZODone HCl 100MG Oral Tablet 03/22/2019 - 10/03/2019 Prov ider: Diagnosis: Incruse Ellipta 62.5MCG/INH Inhalation Aerosol Powder Breath Activated 03/22/2019 - 03/22/2019 Provider: Physician Pul[facility] Diagnosis: FLUoxetine HCl 20MG Oral Capsule 03/22/2019 - 10/03/2019 Pro vider: Diagnosis: rx by mental health Enalapril Maleate 20MG Oral Tablet 03/22/2019 - 10/03/2019 P rovider: Jeevan Choi MD Diagnosis: bid cloNIDine HCl 0.2MG Oral Tablet 03/22/2019 - 10/03/2019 Prov ider: Jeevan Choi MD Diagnosis: LORazepam 1MG Oral Tablet 01/30/2019 - 03/22/2019 Provider: Mariann PATEL Diagnosis: as directed Take one tablet po every 8 hours MDD=3 tablets LORazepam 1 MG TABS 01/29/2019 - 02/05/2019 Provider: Diagnosis: Take one tablet po every 8 hours MDD=3 tablets metFORMIN HCl ER 500MG Oral Tablet Extended Release 24 Hour 12/21/2018 - 07/10/2019 Provider: Lindsay Garrett NP Diagnosis: once a day with largest meal of the day traZODone HCl 100MG Oral Tablet 12/21/2018 - 03/22/2019 Prov ider: Diagnosis: Ventolin HFA 108 (90 Base)MCG/ACT Inhalation Aerosol S olution 12/21/2018 - 10/03/2019 Provider: Lindsay Garrett NP Diagnosis: Emphysema, unspecifi ed 2 puffs q4h PRN with spacer Albuterol Sulfate (2.5 MG/3ML)0.083% Inhalation Nebuli zation solution 12/21/2018 - 10/03/2019 Provider: Lindsay Garrett NP Diagnosis: 1 vial by nebulizer every 4 hours as needed Trelegy Ellipta 100-62.5-25MCG/INH Inhalation Aerosol Powder Breath Activated 12/21/2018 - 03/22/2019 Provider: Lindsay Garrett NP Diagnosis: once a day Simvastatin 10MG Oral Tablet 12/21/2018 - 03/22/2019 Provide r: Jeevan Choi MD Diagnosis: hs QUEtiapine Fumarate 100MG Oral Tablet 12/21/2018 - 9 Provider: Diagnosis: 1 1/2 tabs daily Incruse Ellipta 62.5MCG/INH Inhalation Aerosol Powder Breath Activated 12/21/2018 - 03/22/2019 Provider: Physician Pulmonary [facility] Diagnosis: Enalapril Maleate 20MG Oral Tablet 12/21/2018 - 03/22/2019 P rovider: Jeevan Choi MD Diagnosis: bid cloNIDine HCl 0.2MG Oral Tablet 12/21/2018 - 03/22/2019 Prov ider: Jeevan Choi MD Diagnosis: FLUoxetine HCl 20MG Oral Capsule 12/21/2018 - 03/22/2019 Pro vider: Diagnosis: rx by mental health Carvedilol 25MG Oral Tablet 12/21/2018 - 03/22/2019 Provider : Jeevan Choi MD Diagnosis: bid Breo Ellipta 100-25MCG/INH Inhalation Aerosol Powder B reath Activated 12/21/2018 - 12/21/2018 Provider: Diagnosis: rx by pulmonology amLODIPine Besylate 10MG Oral Tablet 12/21/2018 - 03/22/2019 Provider: Diagnosis: 1 tab po dailyper cardiology LORazepam 1MG Oral Tablet 11/24/2018 - 12/21/2018 Provider: Lindsay Garrett NP Diagnosis: TAKE ONE TABLET BY MOUTH EVERY 8 HOURS WITH MAX 3 TABLETS DAILY LORazepam 1MG Oral Tablet 10/18/2018 - 11/24/2018 Provider: Lindsay Garrett PROP WORKER Diagnosis: TAKE ONE TABLET BY MOUTH EVERY 8 HOURS WITH MAX 3 TABLETS DAILY AirDuo RespiClick 113/14 113-14MCG/ACT I nhalation Aerosol Powder Breath Activated 09/26/2018 - 03/22/2019 Provider: Lindsay Garrett NP Diagnosis: Chronic obstructive pulmonary disease w (acute) exacerbation One inhalation twice a day (rinse mouth after use) - Dx code : J44.1 AirDuo RespiClick 113/14 113-14 MCG/ACT IN AEPB 09/25/2018 - 09/27/2018 Provider: Diagnosis: Chronic obstructive pulmonary disease w (acute) exacerbation One inhalation twice a day (rinse mouth after use) - Dx code : J44.1 LORazepam 1MG Oral Tablet 09/14/2018 - 10/18/2018 Provider: Lindsay Garrett PROP WORKER Diagnosis: TAKE ONE TABLET BY MOUTH EVERY 8 HOURS WITH MAX 3 TABLETS DAILY QUEtiapine Fumarate 100MG Oral Tablet 07/14/2018 - 9 Provider: Diagnosis: 1 1/2 tabs daily Albuterol Sulfate (2.5 MG/3ML)0.083% Inhalation Nebuli zation solution 07/14/2018 - 12/21/2018 Provider: Lindsay Garrett NP Diagnosis: 1 vial by nebulizer every 4 hours as needed FLUoxetine HCl 20MG Oral Capsule 07/14/2018 - 12/21/2018 Pro vider: Diagnosis: rx by mental health LORazepam 1MG Oral Tablet 07/14/2018 - 09/14/2018 Provider: Lindsay Garrett NP Diagnosis: TAKE ONE TABLET BY MOUTH EVERY 8 HOURS WITH MAX 3 TABLETS DAILY Ventolin HFA 108 (90 Base)MCG/ACT Inhalation Aerosol S olution 07/14/2018 - 12/21/2018 Provider: Lindsay Garrett NP Diagnosis: Emphysema, unspecifi ed 2 puffs q4h PRN with spacer Simvastatin 10MG Oral Tablet 07/14/2018 - 12/21/2018 Provide r: Jeevan Choi MD Diagnosis: hs LORazepam 1MG Oral Tablet 07/14/2018 - 07/14/2018 Provider: Lindsay Garrett NP Diagnosis: TAKE ONE TABLET BY MOUTH EVERY 8 HOURS WITH MAX 3 TABLETS DAILY Incruse Ellipta 62.5MCG/INH Inhalation Aerosol Powder Breath Activated 07/14/2018 - 12/21/2018 Provider: Physician Pulmonary [facility] Diagnosis: CloNIDine HCl 0.2MG Oral Tablet 07/14/2018 - 12/21/2018 Prov ider: Jeevan Choi MD Diagnosis: Breo Ellipta 100-25MCG/INH Inhalation Aerosol Powder B reath Activated 07/14/2018 - 12/21/2018 Provider: Diagnosis: rx by pulmonology Enalapril Maleate 20MG Oral Tablet 07/14/2018 - 12/21/2018 P rovider: Jeevan Choi MD Diagnosis: bid Carvedilol 25MG Oral Tablet 07/14/2018 - 12/21/2018 Provider : Jeevan Choi MD Diagnosis: bid AmLODIPine Besylate 10MG Oral Tablet 07/14/2018 - 12/21/2018 Provider: Diagnosis: 1 tab po dailyper cardiology Aspirin 81MG Oral Tablet Chewable 07/05/2018 - 10/03/2019 Pr ovider: Lindsay Garrett NP Diagnosis: Essential (primary) hypertension once a day LORazepam 1MG Oral Tablet 06/08/2018 - 07/14/2018 Provider: Lindsay Garrett NP Diagnosis: TAKE ONE TABLET BY MOUTH EVERY 8 HOURS WITH MAX 3 TABLETS DAILY LORazepam 1MG Oral Tablet 05/08/2018 - 06/08/2018 Provider: Mariann PATEL Diagnosis: TAKE ONE TABLET BY MOUTH EVERY 8 HOURS WITH MAX 3 TABLETS DAILY LORazepam 1MG Oral Tablet 03/22/2018 - 05/08/2018 Provider: Lindsay Garrett NP Diagnosis: TAKE ONE TABLET BY MOUTH EVERY 8 HOURS WITH MAX 3 TABLETS DAILY CloNIDine HCl 0.2MG Oral Tablet 02/16/2018 - 07/14/2018 Prov ider: Jeevan Choi MD Diagnosis: Enalapril Maleate 20MG Oral Tablet 02/16/2018 - 07/14/2018 P rovider: Jeevan Choi MD Diagnosis: bid AmLODIPine Besylate 10MG Oral Tablet 02/16/2018 - 07/14/2018 Provider: Diagnosis: 1 tab po dailyper cardiology Melatonin 5MG Oral Tablet 02/16/2018 - 07/14/2018 Provider: Lindsay Garrett NP Diagnosis: at bedtime Vitamin D (Ergocalciferol) [id number] Oral Capsule 02/16/2018 - 12/21/2018 Provider: Lindsay Garrett NP Diagnosis: Once a month Simvastatin 10MG Oral Tablet 02/16/2018 - 07/14/2018 Provide r: Jeevan Choi MD Diagnosis: hs QUEtiapine Fumarate 50MG Oral Tablet 02/16/2018 - 07/14/2018 Provider: Diagnosis: 3 tabs at [facility] health provider Incruse Ellipta 62.5MCG/INH Inhalation Aerosol Powder Breath Activated 02/16/2018 - 07/14/2018 Provider: Physician Pulmonary [facility] Diagnosis: Carvedilol 25MG Oral Tablet 02/16/2018 - 07/14/2018 Provider : Jeevan Choi MD Diagnosis: bid LORazepam 1MG Oral Tablet 02/06/2018 - 03/22/2018 Provider: Lindsay Garrett NP Diagnosis: TAKE ONE TABLET BY MOUTH EVERY 8 HOURS WITH MAX 3 TABLETS DAILY LORazepam 1MG Oral Tablet 12/14/2017 - 02/06/2018 Provider: Lindsay Garrett NP Diagnosis: TAKE ONE TABLET BY MOUTH EVERY 8 HOURS WITH MAX 3 TABLETS DAILY LORazepam 1MG Oral Tablet 11/08/2017 - 12/14/2017 Provider: Lindsay J. Shaben PROP WORKER Diagnosis: TAKE ONE TABLET BY MOUTH EVERY 8 HOURS WITH MAX 3 TABLETS DAILY Vitamin D (Ergocalciferol) [id number] Oral Capsule 11/03/2017 - 02/16/2018 Provider: Lindsay Garrett NP Diagnosis: once a week Vitamin D (Ergocalciferol) [id number] Oral Capsule 11/01/2017 - 11/04/2017 Provider: Lindsay Garrett PROP WORKER Diagnosis: Albuterol Sulfate (2.5 MG/3ML)0.083% Inhalation Nebuli zation solution 10/18/2017 - 07/14/2018 Provider: Lindsay Garrett PROP WORKER Diagnosis: 1 vial by nebulizer every 4 hours as needed Breo Ellipta 100-25MCG/INH Inhalation Aerosol Powder B reath Activated 10/18/2017 - 07/14/2018 Provider: Lindsay Garrett PROP WORKER Diagnosis: once a day QUEtiapine Fumarate 50MG Oral Tablet 10/18/2017 - 02/16/2018 Provider: Diagnosis: 3 tabs [facility] provider Aspirin 81MG Oral Tablet Chewable 10/18/2017 - 07/05/2018 Pr ovider: Lindsay Garrett PROP WORKER Diagnosis: Essential (primary) hypertension once a day Incruse Ellipta 62.5MCG/INH Inhalation Aerosol Powder Breath Activated 10/18/2017 - 02/16/2018 Provider: Physician Pulmonary Health Diagnosis: Enalapril Maleate 20MG Oral Tablet 10/18/2017 - 02/16/2018 P rovider: Jeevan Choi MD Diagnosis: bid CloNIDine HCl 0.2MG Oral Tablet 10/18/2017 - 02/16/2018 Prov ider: Jeevan Choi MD Diagnosis: Simvastatin 10MG Oral Tablet 10/18/2017 - 02/16/2018 Provide r: Jeevan Choi MD Diagnosis: QUEtiapine Fumarate 50MG Oral Tablet 10/18/2017 - 10/18/2017 Provider: Diagnosis: 3 tabs at [facility] provider AmLODIPine Besylate 10MG Oral Tablet 10/18/2017 - 02/16/2018 Provider: Diagnosis: 1 tab po dailyper cardiology Carvedilol 25MG Oral Tablet 10/18/2017 - 02/16/2018 Provider : Jeevan Choi MD Diagnosis: bid LORazepam 1MG Oral Tablet 10/05/2017 - 11/08/2017 Provider: Lindsay Garrett NP Diagnosis: TAKE ONE TABLET BY MOUTH EVERY 8 HOURS WITH MAX 3 TABLETS DAILY LORazepam 1MG Oral Tablet 09/07/2017 - 10/05/2017 Provider: Lindsay Garrett NP Diagnosis: TAKE ONE TABLET BY MOUTH EVERY 8 HOURS WITH MAX 3 TABLETS DAILY LORazepam 1MG Oral Tablet 08/03/2017 - 09/07/2017 Provider: Lindsay Garrett NP Diagnosis: TAKE ONE TABLET BY MOUTH EVERY 8 HOURS WITH MAX 3 TABLETS DAILY LORazepam 1MG Oral Tablet 06/17/2017 - 08/03/2017 Provider: Lindsay Garrett NP Diagnosis: TAKE ONE TABLET BY MOUTH EVERY 8 HOURS WITH MAX 3 TABLETS DAILY Lancets Miscellaneous 06/17/2017 - 07/14/2018 Provider: Lindsay Garrett NP Diagnosis: as directed OneTouch Ultra Blue In Vitro Strip 06/17/2017 - 12/21/2018 P rovider: Lindsay Garrett NP Diagnosis: Essential (primary) hypertension Test BID as neededDX: E11.9 Simvastatin 10MG Oral Tablet 06/17/2017 - 10/18/2017 Provide r: Jeevan Choi MD Diagnosis: hs QUEtiapine Fumarate 50MG Oral Tablet 06/17/2017 - 10/18/2017 Provider: Diagnosis: 3 tabs at [facility] provider MetFORMIN HCl 500MG Oral Tablet 06/17/2017 - 06/17/2017 Prov ider: Diagnosis: Type 2 diabetes eliezer itus with other specified complication Take 1 tablet by mouth One time daily with a meal. Incruse Ellipta 62.5MCG/INH Inhalation Aerosol Powder Breath Activated 06/17/2017 - 10/18/2017 Provider: Physician Pul[facility] Diagnosis: Enalapril Maleate 20MG Oral Tablet 06/17/2017 - 10/18/2017 P rovider: Jeevan Choi MD Diagnosis: bid CloNIDine HCl 0.2MG Oral Tablet 06/17/2017 - 10/18/2017 Prov ider: Jeevan Choi MD Diagnosis: Carvedilol 25MG Oral Tablet 06/17/2017 - 10/18/2017 Provider : Jeevan Choi MD Diagnosis: bid AmLODIPine Besylate 10MG Oral Tablet 06/17/2017 - 10/18/2017 Provider: Diagnosis: 1 tab po dailyper cardiology LORazepam 1MG Oral Tablet 05/11/2017 - 06/17/2017 Provider: Lindsay Garrett NP Diagnosis: TAKE ONE TABLET BY MOUTH EVERY 8 HOURS WITH MAX 3 TABLETS DAILY Aspirin 81MG Oral Tablet, chewable 05/09/2017 - 10/18/2017 Denilson conde: Lindsay Garrett NP Diagnosis: Essential (primary) hypertension once a day LORazepam 1MG Oral Tablet 04/07/2017 - 05/11/2017 Provider: Mariann PATEL Diagnosis: TAKE ONE TABLET BY MOUTH EVERY 8 HOURS WITH MAX 3 TABLETS DAILY Simvastatin 10MG Oral Tablet 03/01/2017 - 06/17/2017 Provide r: Jeevan Choi MD Diagnosis: hs QUEtiapine Fumarate 50MG Oral Tablet 03/01/2017 - 06/17/2017 Provider: Diagnosis: 3 tabs at presentation [facility] provider MetFORMIN HCl 500MG Oral Tablet 03/01/2017 - 03/09/2017 Prov ider: Diagnosis: one daily Incruse Ellipta 62.5MCG/INH Inhalation Aerosol Powder Breath Activated 03/01/2017 - 06/17/2017 Provider: Physician [facility] Diagnosis: Enalapril Maleate 20MG Oral Tablet 03/01/2017 - 06/17/2017 Denilson conde: Jeevan Choi MD Diagnosis: bid CloNIDine HCl 0.2MG Oral Tablet 03/01/2017 - 06/17/2017 Prov ider: Jeevan Choi MD Diagnosis: Carvedilol 25MG Oral Tablet 03/01/2017 - 06/17/2017 Provider : Jeevan Choi MD Diagnosis: bid AmLODIPine Besylate 10MG Oral Tablet 03/01/2017 - 06/17/2017 Provider: Diagnosis: 1 tab po dailyper cardiology MetFORMIN HCl 500MG Oral Tablet 03/01/2017 - 06/17/2017 Prov ider: Diagnosis: Type 2 diabetes eliezer itus with other specified complication Take 1 tablet by mouth One time daily with a meal. LORazepam 1MG Oral Tablet 02/17/2017 - 04/07/2017 Provider: Lindsay Garrett NP Diagnosis: TAKE ONE TABLET BY MOUTH EVERY 8 HOURS WITH MAX 3 TABLETS DAILY MetFORMIN HCl 500MG Oral Tablet 02/08/2017 - 06/17/2017 Prov ider: Lindsay Garrett NP Diagnosis: Type 2 diabetes eliezer itus with other specified complication Take 1 tablet by mouth One time daily with a meal. MetFORMIN HCl 500MG Oral Tablet 02/08/2017 - 03/01/2017 Prov ider: Diagnosis: Type 2 diabetes eliezer itus with other specified complication Take 1 tablet by mouth One time daily with a meal. MetFORMIN HCl 500MG Oral Tablet 02/08/2017 - 02/08/2017 Prov ider: Diagnosis: Type 2 diabetes eliezer itus with other specified complication Take 2 tablets by mouth Two times daily with Meals Simvastatin 10MG Oral Tablet 01/20/2017 - 03/01/2017 Provide r: Jeevan Choi MD Diagnosis: hs LORazepam 1MG Oral Tablet 01/20/2017 - 02/17/2017 Provider: Lindsay Garrett PROP WORKER Diagnosis: TAKE ONE TABLET BY MOUTH EVERY 8 HOURS WITH MAX 3 TABLETS DAILY Ventolin HFA 108 (90 Base)MCG/ACT Inhalation Aerosol S olution 01/20/2017 - 07/14/2018 Provider: Lindsay Garrett NP Diagnosis: Emphysema, unspecifi ed 2 puffs q4h PRN with spacer Albuterol Sulfate (2.5 MG/3ML)0.083% Inhalation Nebuli zation solution 01/20/2017 - 10/18/2017 Provider: Lindsay Garrett NP Diagnosis: 1 vial by nebulizer every 4 hours as needed Incruse Ellipta 62.5MCG/INH Inhalation Aerosol Powder Breath Activated 01/20/2017 - 03/01/2017 Provider: Physician [facility] Diagnosis: Breo Ellipta 100-25MCG/INH Inhalation Aerosol Powder B reath Activated 01/20/2017 - 10/18/2017 Provider: Lindsay Garrett NP Diagnosis: once a day MetFORMIN HCl 500MG Oral Tablet 01/20/2017 - 03/01/2017 Prov ider: Diagnosis: one daily Carvedilol 25MG Oral Tablet 01/20/2017 - 03/01/2017 Provider : Jeevan Choi MD Diagnosis: bid Enalapril Maleate 20MG Oral Tablet 01/20/2017 - 03/01/2017 P rovider: Jeevan Choi MD Diagnosis: bid CloNIDine HCl 0.2MG Oral Tablet 01/20/2017 - 03/01/2017 Prov ider: Jeevan Choi MD Diagnosis: Carvedilol 25MG Oral Tablet 01/20/2017 - 01/20/2017 Provider : Diagnosis: bid AmLODIPine Besylate 10MG Oral Tablet 01/20/2017 - 03/01/2017 Provider: Diagnosis: 1 tab po dailyper cardiology QUEtiapine Fumarate 50MG Oral Tablet 01/20/2017 - 01/20/2017 Provider: Diagnosis: bid QUEtiapine Fumarate 50MG Oral Tablet 01/20/2017 - 03/01/2017 Provider: Diagnosis: 3 tabs at [facility] provider AmLODIPine Besylate 10MG Oral Tablet 12/29/2016 - 01/20/2017 Provider: Diagnosis: 1 tab po dailyper cardiology LORazepam 1MG Oral Tablet 11/10/2016 - 01/20/2017 Provider: Lindsay Garrett NP Diagnosis: TAKE ONE TABLET BY MOUTH EVERY 8 HOURS WITH MAX 3 TABLETS DAILY Aspirin 81 MG OR CHEW 10/04/2016 - 10/04/2016 Provider: Lindsay Garrett NP Diagnosis: Essential (primary) hypertension Aspirin 81MG Oral Tablet Chewable 10/04/2016 - 05/09/2017 Pr ovider: Lindsay Garrett NP Diagnosis: Essential (primary) hypertension once a day LORazepam 1MG Oral Tablet 09/21/2016 - 11/10/2016 Provider: Lindsay Garrett NP Diagnosis: TAKE ONE TABLET BY MOUTH EVERY 8 HOURS WITH MAX 3 TABLETS DAILY QUEtiapine Fumarate 50 MG Tablet 09/01/2016 - 01/20/2017 Pro vider: Diagnosis: bid Breo Ellipta 100-25 MCG/INH Aerosol Powder Breath Acti vated 09/01/2016 - 09/01/2016 Provider: Diagnosis: Carvedilol 25 MG Tablet 09/01/2016 - 01/20/2017 Provider: Diagnosis: bid Ventolin HFA 108 (90 Base) MCG/ACT Aerosol Solution 09/01/19 - 01/20/2017 Provider: Lindsay Garrett NP Diagnosis: Emphysema, unspecifi ed 2 puffs q4h PRN with spacer OneTouch Ultra Blue Strip 09/01/2016 - 06/17/2017 Provider: Lindsay Garrett NP Diagnosis: Essential (primary) hypertension Test BID as neededDX: E11.9 Breo Ellipta 100-25 MCG/INH Aerosol Powder Breath Acti vated 09/01/2016 - 01/20/2017 Provider: Lindsay Garrett NP Diagnosis: once a day CloNIDine HCl 0.2 MG Tablet 09/01/2016 - 01/20/2017 Provider : Jeevan Choi MD Diagnosis: LORazepam 1 MG Tablet 08/11/2016 - 09/21/2016 Provider: Lindsay Garrett NP Diagnosis: TAKE ONE TABLET BY MOUTH EVERY 8 HOURS WITH MAX 3 TABLETS DAILY LORazepam 1 MG Tablet 07/01/2016 - 08/11/2016 Provider: Lindsay Garrett NP Diagnosis: 1 tab every 8 hours MDD 3 Breo Ellipta 100-25 MCG/INH Aerosol Powder Breath Acti vated 07/01/2016 - 09/01/2016 Provider: Diagnosis: QUEtiapine Fumarate 50 MG Tablet 07/01/2016 - 09/01/2016 Pro vider: Diagnosis: bid Carvedilol 25 MG Tablet 07/01/2016 - 09/01/2016 Provider: Diagnosis: bid Dulera 200-5 MCG/ACT Aerosol 07/01/2016 - 01/20/2017 Provide r: Lindsay Garrett NP Diagnosis: 2 puffs BID, rinse after CloNIDine HCl 0.2 MG Tablet 06/01/2016 - 06/01/2016 Provider : Kim Medina MD Diagnosis: Ceftin 500 MG Tablet 06/01/2016 - 07/01/2016 Provider: Lindsay Garrett NP Diagnosis: twice a day PredniSONE 20 MG Tablet 06/01/2016 - 07/01/2016 Provider: Lindsay Garrett NP Diagnosis: once a day X 7 days with food Albuterol Sulfate (2.5 MG/3ML) 0.083% Nebulization sudhir ution 06/01/2016 - 01/20/2017 Provider: Lindsay Garrett NP Diagnosis: 1 vial by nebulizer every 4 hours as needed Levaquin 500 MG Tablet 06/01/2016 - 06/01/2016 Provider: Lindsay Garrett NP Diagnosis: once a day CloNIDine HCl 0.2 MG Tablet 06/01/2016 - 09/01/2016 Provider : Jeevan Choi MD Diagnosis: Carvedilol 12.5 MG Tablet 06/01/2016 - 07/01/2016 Provider: Jeevan Choi MD Diagnosis: AmLODIPine Besylate 5 MG Tablet 06/01/2016 - 01/07/2017 Prov ider: Lindsay Garrett NP Diagnosis: Essential (primary) hypertension once a day Enalapril Maleate 20 MG Tablet 06/01/2016 - 01/20/2017 Provi compa: Lindsay Garrett NP Diagnosis: Essential (primary) hypertension 1 tab po daily Simvastatin 10 MG Tablet 06/01/2016 - 01/20/2017 Provider: Lindsay Garrett NP Diagnosis: Hyperlipidemia, unsp ecified TAKE ONE TABLET BY MOUTH AT BEDTIME TraZODone HCl 50 MG Tablet 06/01/2016 - 07/01/2016 Provider: Lindsay Garrett NP Diagnosis: once a day FLUoxetine HCl 20 MG Capsule 06/01/2016 - 09/01/2016 Provide r: Lindsay Garrett NP Diagnosis: once a day QUEtiapine Fumarate 100 MG Tablet 06/01/2016 - 07/01/2016 Pr ovider: Diagnosis: Carvedilol 12.5 MG Tablet 06/01/2016 - 06/01/2016 Provider: Kim Medina MD Diagnosis: CloNIDine HCl 0.2 MG Tablet 05/20/2016 - 06/01/2016 Provider : Kim Medina MD Diagnosis: QUEtiapine Fumarate 100 MG Tablet 05/20/2016 - 06/01/2016 Pr ovider: Diagnosis: Carvedilol 12.5 MG Tablet 05/20/2016 - 06/01/2016 Provider: Kim Medina MD Diagnosis: LORazepam 1 MG Tablet 05/07/2016 - 07/01/2016 Provider: Lindsay Garrett NP Diagnosis: 1 tab every 8 hours MDD 3 Aspirin 81 MG Tablet Chewable 05/07/2016 - 07/01/2016 Provid er: Lindsay Garrett NP Diagnosis: Essential (primary) hypertension once a day Aspirin 81 MG OR CHEW 05/05/2016 - 05/07/2016 Provider: Lindsay Garrett NP Diagnosis: Essential (primary) hypertension LORazepam 1 MG Tablet 04/06/2016 - 05/07/2016 Provider: Erna CALDERON Diagnosis: as directed 1 tab every 8 hours MDD 3 QUEtiapine Fumarate 50 MG OR TABS 02/20/2016 - 02/20/2016 Pr ovider: Lindsay Garrett NP Diagnosis: Bipolar disorder, un specified TAKE ONE TABLET BY MOUTH TWICE DAILY F31.9 QUEtiapine Fumarate 50 MG Tablet 02/20/2016 - 05/20/2016 Pro vider: Lindsay Garrett NP Diagnosis: Bipolar disorder, un specified TAKE ONE TABLET BY MOUTH TWICE DAILY F31.9 QUEtiapine Fumarate 50 MG Tablet 02/19/2016 - 02/20/2016 Pro vider: Lindsay Garrett NP Diagnosis: TAKE ONE TABLET BY MOUTH TWICE DAILY F41.9 Simvastatin 10 MG Tablet 01/19/2016 - 06/01/2016 Provider: Lindsay Garrett NP Diagnosis: Hyperlipidemia, unsp ecified TAKE ONE TABLET BY MOUTH AT BEDTIME QUEtiapine Fumarate 50 MG Tablet 01/19/2016 - 02/19/2016 Pro vider: Lindsay Garrett NP Diagnosis: TAKE ONE TABLET BY MOUTH TWICE DAILY Dulera 200-5 MCG/ACT Aerosol 01/02/2016 - 07/01/2016 Provide r: Lindsay Garrett NP Diagnosis: 2 puffs BID, rinse after CloNIDine HCl 0.2 MG Tablet 01/02/2016 - 05/20/2016 Provider : Kim Medina MD Diagnosis: Carvedilol 12.5 MG Tablet 01/02/2016 - 05/20/2016 Provider: Kim Medina MD Diagnosis: Incruse Ellipta 62.5 MCG/INH Aerosol Powder Breath Act ivated 01/02/2016 - 07/01/2016 Provider: Lindsay Garrett NP Diagnosis: 1 puff QD LORazepam 1 MG Tablet 10/20/2015 - 04/06/2016 Provider: Erna CALDERON Diagnosis: as directed 1 tab every 8 hours MDD 3 OneTouch Ultra Blue Strip 10/01/2015 - 09/01/2016 Provider: Lindsay Garrett NP Diagnosis: Essential (primary) hypertension as directed Test BIDDX: E11.9 AmLODIPine Besylate 5 MG Tablet 10/01/2015 - 06/01/2016 Prov ider: Lindsay Garrett NP Diagnosis: Essential (primary) hypertension once a day MetFORMIN HCl 500 MG Tablet 10/01/2015 - 05/20/2016 Provider : Lindsay Garrett NP Diagnosis: Type 2 diabetes eliezer itus without complications 1 tablet twice daily with meals Simvastatin 10 MG Tablet 10/01/2015 - 01/19/2016 Provider: Lindsay Garrett NP Diagnosis: Hyperlipidemia, unsp ecified 1 every bedtime Labetalol HCl 200 MG Tablet 10/01/2015 - 06/01/2016 Provider : Lindsay Garrett NP Diagnosis: Essential (primary) hypertension three times a day CloNIDine HCl 0.2 MG Tablet 10/01/2015 - 01/02/2016 Provider : Diagnosis: Carvedilol 12.5 MG Tablet 10/01/2015 - 01/02/2016 Provider: Diagnosis: QUEtiapine Fumarate 50 MG Tablet 10/01/2015 - 01/19/2016 Pro vider: Lindsay Garrett NP Diagnosis: twice a day Aspirin 81 MG Tablet 10/01/2015 - 06/01/2016 Provider: Lindsay aGrrett NP Diagnosis: 1 tab po daily FLUoxetine HCl 20 MG Capsule, conventional 10/01/2015 - 08/2015 Provider: Lnidsay Garrett NP Diagnosis: once a day Enalapril Maleate 20 MG Tablet 10/01/2015 - 06/01/2016 Provi compa: Lindsay Garrett NP Diagnosis: Essential (primary) hypertension 1 tab po daily Xopenex 1.25 MG/3ML Nebulization solution 10/01/2015 - 01/01 Provider: Lindsay Garrett NP Diagnosis: 1 vial by nebulizer three times per day Xopenex 1.25 MG/3ML Nebulization solution 10/01/2015 - 09/30 Provider: Diagnosis: per hospital discharge RisperiDONE 0.5 MG Tablet 10/01/2015 - 05/20/2016 Provider: Lindsay Garrett NP Diagnosis: twice a day LORazepam 1 MG TABS 09/10/2015 - 10/20/2015 Provider: Lindsay Garrett NP Diagnosis: 1 tab every 8 hours MDD 3 LORazepam 1 MG TABS 08/04/2015 - 07/04/2015 Provider: Lindsay Garrett NP Diagnosis: 1 tab every 8 hours MDD 3 Incruse Ellipta 62.5 MCG/INH Aerosol Powder Breath Act ivated 07/07/2015 - 01/02/2016 Provider: Erna Tapia ANP Diagnosis: as directed 1 puff QD Dulera 200-5 MCG/ACT Aerosol 07/07/2015 - 01/02/2016 Provide r: Erna Tapia ANP Diagnosis: as directed 2 puffs BID, rinse after LORazepam 1 MG Tablet 07/04/2015 - 07/04/2015 Provider: Lindsay Garrett PROP WORK[employer] Diagnosis: 1 tab every 8 hours FLUoxetine HCl 20 MG Capsule, conventional 06/09/2015 - 09/2015 Provider: Lindsay Garrett NP Diagnosis: FLUoxetine HCl 20 MG OR CAPS 06/09/2015 - 06/09/2015 Provide r: Lindsay Garrett NP Diagnosis: Incruse Ellipta 62.5 MCG/INH Aerosol Powder Breath Act ivated 06/07/2015 - 07/07/2015 Provider: Lindsay Garrett NP Diagnosis: 1 puff QD Dulera 200-5 MCG/ACT Aerosol 06/07/2015 - 07/07/2015 Provide r: Lindsay Garrett NP Diagnosis: 2 puffs BID, rinse after Dulera 200-5 MCG/ACT IN AERO 06/06/2015 - 06/07/2015 Provide r: Lindsay Garrett NP Diagnosis: 2 puffs BID, rinse after Incruse Ellipta 62.5 MCG/INH AEPB 06/06/2015 - 06/07/2015 Pr ovider: Lindsay Garrett NP Diagnosis: 1 puff QD OneTouch Ultra Blue STRP 06/06/2015 - 10/01/2015 Provider : Lindsay Garrett NP Diagnosis: Test BIDDX: E11.9 FLUoxetine HCl 20 MG Tablet 06/06/2015 - 06/09/2015 Provider : Lindsay Garrett NP Diagnosis: once a day LORazepam 1 MG Tablet 06/05/2015 - 07/04/2015 Provider: Lindsay Garrett NP Diagnosis: as directed MetFORMIN HCl 500 MG Tablet 06/05/2015 - 10/01/2015 Provider : Lindsay Garrett NP Diagnosis: Type 2 diabetes eliezer itus without complications 1 tablet twice daily with meals QUEtiapine Fumarate 50 MG Tablet 06/05/2015 - 10/01/2015 Pro vider: Lindsay Garrett NP Diagnosis: twice a day FLUoxetine HCl (PMDD) 20 MG Capsule, conventional 06/05/2015 - 06/06/2015 Provider: Lindsay Garrett NP Diagnosis: Major depressive dis order, single episode, unspecified 1 tab once daily Simvastatin 10 MG Tablet 06/05/2015 - 10/01/2015 Provider: Lindsay Garrett NP Diagnosis: Hyperlipidemia, unsp ecified 1 every bedtime Enalapril Maleate 20 MG Tablet 06/05/2015 - 10/01/2015 Provi compa: Lindsay Garrett NP Diagnosis: Essential (primary) hypertension 1 tab po daily MetFORMIN HCl 500 MG Tablet 06/05/2015 - 06/05/2015 Provider : Lindsay Garrett NP Diagnosis: Type 2 diabetes eliezer itus without complications 2 tabs twice daily with meals Spiriva HandiHaler 18 MCG Capsule, conventional 06/05/2015 - 06/06/2015 Provider: Lindsay Garrett NP Diagnosis: once a day Symbicort 160-4.5 MCG/ACT Aerosol 06/05/2015 - 06/06/2015 Pr ovider: Lindsay Garrett NP Diagnosis: Chronic obstructive pulmonary disease, unspecified 2 puffs bid - rinse after OneTouch Ultra Blue Strip 06/05/2015 - 06/05/2015 Provider: Lindsay Garrett NP Diagnosis: as directed QUEtiapine Fumarate 50 MG Tablet 06/05/2015 - 06/05/2015 Pro vider: Diagnosis: Plavix 75 MG Tablet 06/05/2015 - 10/01/2015 Provider: Diagnosis: Folic Acid 1 MG Tablet 06/05/2015 - 10/01/2015 Provider: Diagnosis: Daily Value Multivitamin Tablet 06/05/2015 - 10/01/2015 Prov ider: Diagnosis: Carvedilol 12.5 MG Tablet 06/05/2015 - 10/01/2015 Provider: Diagnosis: Multivitamins Capsule, conventional 06/05/2015 - 10/01/2015 Provider: Diagnosis: CloNIDine HCl 0.2 MG Tablet 06/05/2015 - 10/01/2015 Provider : Diagnosis: traMADol HCl 50 MG OR TABS 06/03/2015 - 06/05/2015 Provider: Lindsay Garrett NP Diagnosis: 1 tab po q8h PRN MDD 3 LORazepam 1 MG TABS 06/03/2015 - 06/05/2015 Provider: Lindsay Garrett NP Diagnosis: MDD 2 Multivitamins Capsule 04/30/2015 - 06/05/2015 Provider: Diagnosis: CloNIDine HCl 0.2 MG Tablet 04/30/2015 - 06/05/2015 Provider : Diagnosis: Carvedilol 12.5 MG Tablet 04/17/2015 - 06/05/2015 Provider: Diagnosis: Daily Value Multivitamin Tablet 04/17/2015 - 06/05/2015 Prov ider: Diagnosis: Folic Acid 1 MG Tablet 04/17/2015 - 06/05/2015 Provider: Diagnosis: QUEtiapine Fumarate 50 MG Tablet 04/17/2015 - 06/05/2015 Pro vider: Diagnosis: Plavix 75 MG Tablet 04/17/2015 - 06/05/2015 Provider: Diagnosis: CloNIDine HCl 0.1 MG Tablet 04/17/2015 - 04/30/2015 Provider : Diagnosis: LORazepam 1 MG TABS 04/11/2015 - 02/25/2015 Provider: Erna Tapia ANP Diagnosis: Anxiety State Unspec ified MDD 2 traMADol HCl 50 MG OR TABS 04/11/2015 - 01/14/2015 Provider: Erna Tapia ANP Diagnosis: Anxiety State Unspec ified 1 tab po q8h PRN MDD 3 Labetalol HCl 200 MG Tablet 04/11/2015 - 10/01/2015 Provider : Erna Tapia ANP Diagnosis: Hypertension Unspeci fied Essential three times a day Aspirin 81 MG Tablet 04/11/2015 - 10/01/2015 Provider: Erna CALDERON Diagnosis: Dm Without Complicat ion Type II or Unspecified Type Not Stat 1 tab po daily Blood Pressure Kit 02/25/2015 - 02/25/2015 Provider: Lindsay Garrett NP Diagnosis: as directed Carvedilol 6.25 MG Tablet 02/25/2015 - 04/17/2015 Provider: Diagnosis: rx by cardiology Blood Pressure Kit 02/25/2015 - 06/05/2015 Provider: Lindsay Garrett NP Diagnosis: as directed LORazepam 1 MG Tablet 02/25/2015 - 02/25/2015 Provider: Lindsay Garrett NP Diagnosis: Anxiety State Unspec ified twice a day QUEtiapine Fumarate 50 MG Tablet 02/25/2015 - 04/17/2015 Pro vider: Diagnosis: Aspirin 81 MG Tablet 01/14/2015 - 04/11/2015 Provider: Lindsay Garrett NP Diagnosis: Dm Without Complicat ion Type II or Unspecified Type Not Stat 1 tab po daily TraMADol HCl 50 MG Tablet 01/14/2015 - 01/14/2015 Provider: Lindsay Garrett NP Diagnosis: Anxiety State Unspec ified 1 tab po q8h PRN FLUoxetine HCl (PMDD) 20 MG Capsule, conventional 01/14/2015 - 06/05/2015 Provider: Lindsay Garrett NP Diagnosis: Depressive Disorder Not Elsewhere Classified 1 tab once daily Labetalol HCl 200 MG Tablet 01/14/2015 - 04/11/2015 Provider : Lindsay Garrett NP Diagnosis: Hypertension Unspeci fied Essential three times a day PredniSONE 20 MG Tablet 01/14/2015 - 02/25/2015 Provider: Lindsay Garrett NP Diagnosis: Chronic Airway Obstr uction Not Elsewhere Classified 1 tab daily X 7 days Simvastatin 10 MG Tablet 01/12/2015 - 06/05/2015 Provider: Lindsay Garrett NP Diagnosis: Unspecified Hyperlip idemia Nec 1 every bedtime Ativan 0.5 MG OR TABS 01/08/2015 - 02/25/2015 Provider: Lindsay Garrett NP Diagnosis: twice a day Ativan 0.5 MG OR TABS 11/26/2014 - 08/29/2014 Provider: Lindsay Garrett NP Diagnosis: twice a day Ativan 0.5 MG Tablet 08/29/2014 - 08/29/2014 Provider: Lindsay Garrett NP Diagnosis: twice a day Symbicort 160-4.5 MCG/ACT Aerosol 08/29/2014 - 06/05/2015 Pr ovider: Lindsay Garrett NP Diagnosis: Chronic Airway Obstr uction Not Elsewhere Classified 2 puffs bid - rinse after Spiriva HandiHaler 18 MCG Capsule, conventional 08/29/2014 - 06/05/2015 Provider: Lindsay Garrett NP Diagnosis: once a day Simvastatin 10 MG Tablet 08/29/2014 - 01/12/2015 Provider: Lindsay Garrett NP Diagnosis: Unspecified Hyperlip idemia Nec 1 every bedtime Ventolin HFA 108 (90 Base) MCG/ACT Aerosol, solution 015 - 09/01/2016 Provider: Lindsay Garrett NP Diagnosis: Emphysema Nec as directed 2 puffs q4h PRN with spacer PredniSONE 10 MG Tablet 08/29/2014 - 01/14/2015 Provider: Lindsay Garrett NP Diagnosis: once a day FLUoxetine HCl (PMDD) 20 MG OR CAPS 08/29/2014 - 08/29/2014 Provider: Diagnosis: Prophylactic Vaccina tion and Inoculation Against Influenza ONCE A DAYREPLACES EFFEXOR - REPLACES TABLETS FLUoxetine HCl 20 MG Tablet 08/29/2014 - 08/29/2014 Provider : Lindsay Garrett NP Diagnosis: once a dayREPLACES EFFEXOR FLUoxetine HCl (PMDD) 20 MG OR CAPS 08/29/2014 - 01/14/2015 Provider: Lindsay Garrett NP Diagnosis: Prophylactic Vaccina tion and Inoculation Against Influenza ONCE A DAYREPLACES EFFEXOR - REPLACES TABLETS MetFORMIN HCl 500 MG Tablet 08/29/2014 - 06/05/2015 Provider : Lindsay Garrett NP Diagnosis: Dm Without Complicat ion Type II or Unspecified Type Not Stat 2 tabs twice daily with meals Enalapril Maleate 20 MG Tablet 08/29/2014 - 06/05/2015 Provi compa: Lindsay Garrett NP Diagnosis: Hypertension Unspeci fied Essential 1 tab po daily Aspirin 81 MG OR TABS 06/21/2014 - 01/14/2015 Provider: Lindsay Garrett NP Diagnosis: Dm Without Complicat ion Type II or Unspecified Type Not Stat 1 tab po daily Labetalol HCl 200 MG OR TABS 06/20/2014 - 01/14/2015 Provide r: Diagnosis: Prophylactic Vaccina tion and Inoculation Against Influenza metFORMIN HCl 500 MG TABS 05/21/2014 - 08/29/2014 Provider: Lindsay Garrett NP Diagnosis: Dm Without Complicat ion Type II or Unspecified Type Not Stat 2 tabs twice daily with meals Labetalol HCl 200 MG OR TABS 05/03/2014 - 06/20/2014 Provide r: Diagnosis: Prescribed by ER Dr. Blevins 160-4.5 MCG/ACT IN AERO 05/03/2014 - 08/29/2014 Pr ovider: Lindsay Garrett NP Diagnosis: Chronic Airway Obstr uction Not Elsewhere Classified 2 puffs bid - rinse after traMADol HCl 50 MG OR TABS 05/03/2014 - 01/14/2015 Provider: Lindsay Garrett NP Diagnosis: Anxiety State Unspec ified 1 tab po q8h PRN Ativan 0.5 MG OR TABS 05/03/2014 - 06/21/2014 Provider: Lindsay Garrett NP Diagnosis: Anxiety State Unspec ified 1 tab po as needed MDD 2 Effexor XR 150 MG OR CP24 05/03/2014 - 08/29/2014 Provider: Lindsay Garrett NP Diagnosis: Anxiety State Unspec ified 1 cap po daily Enalapril Maleate 5 MG OR TABS 05/03/2014 - 05/03/2014 Provi compa: Diagnosis: Enalapril Maleate 20 MG OR TABS 05/03/2014 - 08/29/2014 Prov ider: Lindsay Garrett NP Diagnosis: Hypertension Unspeci fied Essential 1 tab po dailyDOSE CHANGE Spiriva HandiHaler 18 MCG IN CAPS 04/11/2014 - 08/29/2014 Pr ovider: Lindsay Garrett NP Diagnosis: Aspirin 81 MG OR TABS 04/05/2014 - 06/21/2014 Provider: Lindsay Garrett NP Diagnosis: Dm Without Complicat ion Type II or Unspecified Type Not Stat TAKE ONE BY MOUTH EVERY DAY Ventolin HFA 108 (90 Base) MCG/ACT IN AERS 04/04/2014 - 08/02 Provider: Lindsay Garrett NP Diagnosis: Emphysema Nec 2 puffs q4h PRN with spacer Symbicort 160-4.5 MCG/ACT IN AERO 04/04/2014 - 04/04/2014 Pr ovider: Diagnosis: Enalapril Maleate 5 MG OR TABS 04/04/2014 - 05/03/2014 Provi compa: Diagnosis: Labetalol HCl 200 MG OR TABS 04/04/2014 - 05/03/2014 Provide r: Diagnosis: Prescribed by ER Dr. Rodriguez 20 MG OR TABS 04/04/2014 - 04/04/2014 Provider: Diagnosis: Effexor XR 75 MG OR CP24 04/04/2014 - 05/03/2014 Provider: Lindsay Garrett NP Diagnosis: 1 cap po daily X 7 days then increase to 2 caps daily metFORMIN HCl 500 MG TABS 04/04/2014 - 05/21/2014 Provider: Lindsay Garrett NP Diagnosis: Dm Without Complicat ion Type II or Unspecified Type Not Stat 2 tabs twice daily with meals Symbicort 160-4.5 MCG/ACT IN AERO 04/04/2014 - 04/11/2014 Pr ovider: Lindsay Garrett NP Diagnosis: 2 puffs bid - rinse after Simvastatin 10 MG OR TABS 04/04/2014 - 08/29/2014 Provider: Lindsay Garrett NP Diagnosis: Unspecified Hyperlip idemia Nec Aspirin 81 MG OR TABS 04/04/2014 - 04/07/2014 Provider: Diagnosis: Xanax 0.5 MG OR TABS 04/04/2014 - 05/03/2014 Provider: Lindsay Garrett NP Diagnosis: Anxiety State Unspec ified 1 tab po q8h PRN MDD 3 tablets HYDROcodone-Acetaminophen 5-325 MG OR TABS 04/04/2014 - 08/02 Provider: Lindsay Garrett NP Diagnosis: 1 tab at hs PRN OneTouch Basic System w/Device KIT 04/02/2014 - 08/29/2014 Denilson warrender: Evelyn Alexander NP Diagnosis: One Touch Delica Lancets MISC 04/02/2014 - 06/05/2015 Provid er: Evelyn Alexander NP Diagnosis: use as directed OneTouch Test STRP 04/02/2014 - 06/05/2015 Provider: Evelyn Alexander NP Diagnosis: test blood sugars bid OneTouch Verio IQ STRP 03/29/2014 - 04/02/2014 Provider: Lindsay Garrett NP Diagnosis: Dm Without Complicat ion Type II or Unspecified Type Not Stat Test blood sugar twice daily Diovan 160 MG OR TABS 03/29/2014 - 04/04/2014 Provider: Lindsay Garrett NP Diagnosis: Hypertension Unspeci fied Essential 1 tab daily metFORMIN HCl 500 MG TABS 12/14/2013 - 04/04/2014 Provider: Evelyn Alexander NP Diagnosis: Dm Without Complicat ion Type II or Unspecified Type Not Stat Metoprolol Succinate ER 25 MG OR TB24 11/15/2013 - 4 Provider: Evelyn Alexander NP Diagnosis: Hypertension Unspeci fied Essential Lisinopril 10 MG OR TABS 11/08/2013 - 03/29/2014 Provider: Evelyn Alexander NP Diagnosis: Hypertension Unspeci fied Essential Paxil 20 MG OR TABS 11/08/2013 - 04/04/2014 Provider: Evelyn Alexander NP Diagnosis: Depressive Disorder Not Elsewhere Classified Ventolin HFA 108 (90 Base) MCG/ACT IN AERS 09/21/2013 - 10/2013 Provider: Evelyn Alexander NP Diagnosis: Emphysema Nec 2 puffs inh every 4 hours prn wheezing (replaces proair) Lisinopril 10 MG OR TABS 04/27/2013 - 11/08/2013 Provider: Evelyn Alexander NP Diagnosis: Hypertension Unspeci fied Essential Simvastatin 10 MG OR TABS 04/27/2013 - 04/04/2014 Provider: Evelyn Alexander NP Diagnosis: Unspecified Hyperlip idemia Nec Aspirin 81 MG OR TABS 04/27/2013 - 04/05/2014 Provider: Evelyn Alexander NP Diagnosis: Dm Without Complicat ion Type II or Unspecified Type Not Stat Flovent Diskus 250 MCG/BLIST IN AEPB 04/24/2013 - 04/04/2014 Provider: Evelyn Alexander NP Diagnosis: Emphysema Nec 1 puff INH BID -- rinse mouth out after. To replace advair script due to insurance metFORMIN HCl 500 MG TABS 04/24/2013 - 12/14/2013 Provider: Evelyn Alexander NP Diagnosis: Dm Without Complicat ion Type II or Unspecified Type Not Stat Ventolin HFA 108 (90 Base) MCG/ACT IN AERS 04/23/2013 - 04/02 Provider: Evelyn Alexander NP Diagnosis: Emphysema Nec 2 puffs inh every 4 hours prn wheezing (replaces proair) Paxil 20 MG OR TABS 04/20/2013 - 11/08/2013 Provider: Evelyn Alexander NP Diagnosis: Depressive Disorder Not Elsewhere Classified ProAir HFA 108 (90 Base) MCG/ACT IN AERS 04/20/2013 - 2012 Provider: Evelyn Alexander NP Diagnosis: Emphysema Nec 2 puffs INH every 4 hours prn wheezing Advair Diskus 250-50 MCG/DOSE IN AEPB 04/20/2013 - 3 Provider: Evelyn Alexander NP Diagnosis: Emphysema Nec 1 dose INH BID -- rinse mouth out after Metoprolol Succinate ER 25 MG OR TB24 04/20/2013 - 4 Provider: Evelyn Alexander NP Diagnosis: Hypertension Unspeci fied Essential Medications Administered Includes: Administered Medications in patient's chart Medications Administered Diagnosis Date Provi compa Albuterol Sulfate (2.5 MG/3ML) 07/14/2018 Lindsay Garrett PROP WORKER 0.083% IN [facility] Albuterol Sulfate (2.5 MG/3ML) 03/01/2017 Lindsay Garrett PROP WORKER 0.083% IN [facility] Albuterol Sulfate (2.5 MG/3ML) 12/21/2018 Lindsay Garrett NP 0.083% IN [facility] 1 vial by nebulizer Albuterol Sulfate (2.5 MG/3ML) 10/18/2017 Lindsay Garrett NP 0.083% IN [facility] Vital Signs Includes: Vital Signs from 07/22/2019 through 07/22/2020 Vital Name 06/19/2020 03:59P 06/19/2020 03:00P 10/03/2019 0 1:25P Blood Pressure Sitting L 136/86 139/92 140/94 BP Cuff Size Large Large Regular Pulse Rhythm Regular Regular Respiration Rate (breaths/min) 18 1 8 Temp-Tympanic (F) 97.9 98.1 Weight (lb) 205 215 Pain Level 0 0 Oxygen Saturation (%) 92 91 Pulse Rate-Sitting (bpm) 62 Height (in) 74 Body Mass Index (kg/m2) 27.6 Body Surface Area (m2) 2.24 Results Includes: Results from 07/22/2019 through 07/22/2020 Hgb A1c In-House Labs Ordered by Lindsay Garrett NP on 06/19/2020 Specimen Source: Whole blood Collected: 06/19/2020 R eported: 06/19/2020 Hgb A1c 6.2 N (Normal) Reviewed on 06/19/2020; All test result s are final unless otherwise noted. Hgb A1c In-House Labs Ordered by Lindsay Garrett NP on 10/03/2019 Specimen Source: Whole blood Collected: 10/03/2019 R eported: 10/03/2019 Hgb A1c 5.9 N (Normal) Reviewed on 10/03/2019; All test result s are final unless otherwise noted. History of Present Illness History of Present Illness not supported for this document typeNo History of Present Illness Recorded Social History Description Last Updated Alcohol use 06/19/2020 Denies alcohol consumption Secondhand cigarette smoke exposure 06/19/2020 Smoking status 06/19/2020 : Former smoker 06/19/2020 Drug use Previously smoked spike (synthetic marijuana ) 02/25/2015 (1) I rarely or never do any physical activites 2013 Does not communicate by sign language 04/04/2014 Educational level 10th grade 04/04/2014 Exercise frequency 04/04/2014 No difficulty understanding local (nonnative) language 04/04/2014 No domestic violence 04/04/2014 No physical disability 04/04/2014 Normal activities of daily living 04/04/2014 Sexually active 04/04/2014 . He has 7 children. 3 boys are in senior living a t present 04/20/2013 Caffeine use 2 cups of coffee daily 04/20/2013 Procedures and Surgical/Medical History Includes: Procedures from 07/22/2019 through 07/22/2020 Procedures CPT-4 Diagnosis Performing Provider Service Location Service Date Hemoglobin; Glycated A1c (QW) 64316 Type 2 russ betes mellitus without complications Lindsay Garrett NP [facility] 06/19/2020 Hemoglobin; Glycated A1c (QW) 77928 Type 2 russ betes mellitus without complications Lindsay Garrett NP [facility] 10/03/2019 Surgical History Last Updated History of appendectomy 04/07/2014 Medical History Last Updated No previous emergency room visit 06/01/2016 A urine drug screen was positive 07/07/2015 CONSISTEN T 01/02/2016 History of type 2 diabetes mellitus ~ C OPD ~Respiratory failure/ cardiac arrest ~ Hep C ~Anxiety ~Psychotic disorder 02/25/2015 History of a fundoscopic exam through di lated pupils was performed within last 12 months 02/25/2015 History of coronary artery disease 04/07/2014 History of hyperlipidemia 04/07/2014 Patient screening 04/04/2014 Offered for HIV- declined 04/04/2014 Standardized depression screening: clinically signific ant symptoms 04/04/2014 Past medical history Please see Problem List for Acti ve Chronic Problems 04/20/2013 History of essential hypertension 04/20/2013 Family History Includes: Family History in patient's chart Description Last Updated Family history of cancer 1 brother from melanoma 04/20/2013 Family history of diabetes mellitus 3 brothers, 4 sis ters with DM 04/20/2013 Family history of heart disease 3 broth ers have had [place]. All brothers were 45- 55 and from [place] ~twin Sister had [place] and in her 40s 04/20/2013 Family history of hypertension 04/20/2013 Review of Systems Review of Systems not supported for this document typeNo Review of Systems Recorded Mental Status Mental Status not supported for this document typeNo Mental Status Recorded Functional Status Functional Status not supported for this document typeNo Functional Status Recorded Physical Exam Physical Exam not supported for this document typeNo Physical Exam Recorded Immunizations Includes: Immunizations in patient's chart Vaccine Dose # Date Site Reaction(s) Status Source Boostrix 1 01/20/2017 Left Arm Complete (Administered) [facility] Influenza 1 04/27/2013 Upper Right Arm Complete (Administe red) [facility] Influenza 2 05/03/2014 Left Arm Complete (Administered) [facility] Influenza 3 06/05/2015 Upper Left Arm Complete (Administer ed) [facility] Influenza 4 07/01/2016 Right Arm Complete (Administered) [facility] Influenza 5 06/17/2017 Left Arm Complete (Administered) [facility] Influenza 6 07/14/2018 Right Arm Complete (Administered) [facility] PCV (Pneumovax 23) 1 04/27/2013 Upper Left Arm Compl ete (Administered) [facility] Prevnar 13 1 07/01/2016 Left Arm Complete (Administered) [facility] Allergies Includes: Active, inactive, and resolved Allergies Substance Type Reaction Effective Status Codeine Allergy Skin Rashes, Hives 04/04/2014 Active Encounters Includes: Encounters from 07/22/2019 through 07/22/2020 Encounter Provider Location Date Diagnosis No Show-No Call Lindsay Garrett NP 07/22/2020 Correspondence Matilda Morris RN 07/14/2020 Referral Order Lindsay Garrett NP 07/04/2020 Hospital Follow-up Lindsay Garrett NP [facility] 2019 Hypertension (systemic), Taking Medication For Diabetes Long-term Use of Insulin, Hyperlipidemia, Diabetes Mellitus Type 2 with Manifestations, Chronic Obstructive Pulmonary Disease, Depression, Ectropion Left Eye Chart Prep Sonya Lopez RN 06/18/2020 Referral Order Lindsay Garrett NP 06/05/2020 Referral Order Lindsay Garrett NP 05/14/2020 [Patient Encounter] Lindsay Garrett NP 05/13/2020 Telephonic Encounter Lindsay Garrett NP 03/25/2020 Diabetes Mellitus, Chronic Obstructive Pulmonary Disease, Asthma, Anxiety Disorder Nos, Depression, Emphysema, Hyperlipidemia, Hypertension (systemic), Nonorganic Sleep Apnea Obstructive Telephonic Encounter Lindsay Garrett NP [facility] 03/02 Chronic Disease Follow-up Lindsay Garrett NP [facility] 10/03/2019 Hypertension (systemic), Taking Medication For Diabetes Long-term Use of Insulin, Hyperlipidemia, Diabetes Mellitus Type 2 with Manifestations, Chronic Obstructive Pulmonary Disease, Downs of Eyelid - Thermal, Downs of the Face, Head, Or Neck, Downs No Show-No Call Lindsay Garrett NP 07/26/2019 Insurance Includes: Active Insurance Policies Plan Name Member ID Group # Subscriber Relationship Effective Da [id number] 1 - [facility] Managed Medicaid [id number] Deni Perdomo Sr Self 04/01/2013 - Unknown Advance Directives Includes: Current Advance Directives Directive Pat Aware Third Libertarian Effective Date Reviewed Status RHIO Yes 12/21/2018 Current and Ve rified packet given Pt Bill of Rights, Priv Prac, Ad Dir Yes 06/19/2020 Current and Verified Note: Pt declined AD packet Ebola Screening Performed Yes 06/19/2020 Current and Verified Note: Within the last month, have you traveled outside of the [place]? - NO Health Concerns Includes: Active Health Concerns Anxiety Disorder Nos Onset 04/04/2014 Diabetes Mellitus Onset 04/24/2013 Hepatitis, C Virus Onset 01/20/2017 Hyperlipidemia Onset 04/27/2013 Hypertension (systemic) Onset 04/20/2013 Goals Includes: Active Goals Hypertension means that your blood press ure is higher than it should be. Our goal for your blood pressure is to maintain it at less than 140/90 with a combination of any or all of these treatment modalities (medication, diet, exercise, and weight loss). Added 04/20/2013 by Provider Health Concern: Hypertension (systemic) Diabetes Mellitus means that your blood glucose (sugar) levels have been found to be higher than normal. Your blood glucose levels can be monitored by home blood glucose testing OR by a test called the hemoglobin a1c. The hemoglobin a1c measures what your average blood glucose has been over the last 3 months. Our goal for your hemoglobin a1c is to maintain it ideally between 6 and 7. Uncontrolled diabetes can cause many health complications including vision loss, heart disease, kidney disease and loss of sensation to the extremities so work with your health care provider to obtain the best possible glycemic control. Added 04/24/2013 by Provider Health Concern: Diabetes Mellitus Hyperlipidemia means that your cholester ol is higher than normal. High cholesterol increases your risk of developing heart disease which can result in a heart attack or stroke. Cholesterol testing of your blood includes your total cholesterol, LDL (bad cholesterol), HDL (good cholesterol) and triglycerides (fats in your blood). Added 04/27/2013 by Provider Health Concern: Hyperlipidemia Our goal is to provide you the ability t o control your anxiety symptoms. Added 04/07/2014 by Provider Health Concern: Anxiety Disorder Nos Goal for Hepatitis, C Virus Added 01/20/2017 by Provider Health Concern: Hepatitis, C Virus Interventions Includes: Interventions for active Goals Limit added salt in your diet. Try to ge t some form of regular exercise several times per week. Try to lose weight, even as little as 10% of your existing weight will help.Take any medication that is prescribed for your blood pressure. Added 04/20/2013 Goal: Hypertension means that your blood pressure is higher than it should be. Our goal for your blood pressure is to maintain it at less than 140/90 with a combination of any or all of these treatment modalities (medication, diet, exercise, and weight loss). Weight loss and regular exercise will he lp control your blood glucose levels.Follow dietary guidelines for your diabetes.Monitor your blood glucose at home Added 04/24/2013 Goal: Diabetes Mellitus means that your blood glucose (sugar) levels have been found to be higher than normal. Your blood glucose levels can be monitored by home blood glucose testing OR by a test called the hemoglobin a1c. The hemoglobin a1c measures what your average blood glucose has been over the last 3 months. Our goal for your hemoglobin a1c is to maintain it ideally between 6 and 7. Uncontrolled diabetes can cause many health complications including vision loss, heart disease, kidney disease and loss of sensation to the extremities so work with your health care provider to obtain the best possible glycemic control. Follow a low fat, low cholesterol diet ( ask if you would like information on these dietary guidelines)Try to lose weight, even as little as 10% of your existing weight will help.Get some form of regular exercise several times per week.Take any medication that is prescribed to lower your cholesterol Added 04/27/2013 Goal: Hyperlipidemia means that your cholesterol is higher than normal. High cholesterol increases your risk of developing heart disease which can result in a heart attack or stroke. Cholesterol testing of your blood includes your total cholesterol, LDL (bad cholesterol), HDL (good cholesterol) and triglycerides (fats in your blood). Counseling services may be helpful to pr ovide you strategies to control your anxiety symptoms. Take any medication according to the directions prescribed.Follow up with mental health provider Added 04/07/2014 Goal: Our goal is to provide you the ability to control your anxiety symptoms. Will refer you to Dr. Baltazar for evaluat ion and follow up Added 01/20/2017 Goal: Goal for Hepatitis, C Virus Evaluations & Outcomes Includes: Evaluations & Outcomes for active Goals Goal converted from Patient Problem data . Goal is currently In Progress. Added 04/20/2013 - In Progress Goal: Hypertension means that your blood pressure is higher than it should be. Our goal for your blood pressure is to maintain it at less than 140/90 with a combination of any or all of these treatment modalities (medication, diet, exercise, and weight loss). Goal converted from Patient Problem data . Goal is currently In Progress. Added 04/24/2013 - In Progress Goal: Diabetes Mellitus means that your blood glucose (sugar) levels have been found to be higher than normal. Your blood glucose levels can be monitored by home blood glucose testing OR by a test called the hemoglobin a1c. The hemoglobin a1c measures what your average blood glucose has been over the last 3 months. Our goal for your hemoglobin a1c is to maintain it ideally between 6 and 7. Uncontrolled diabetes can cause many health complications including vision loss, heart disease, kidney disease and loss of sensation to the extremities so work with your health care provider to obtain the best possible glycemic control. Goal converted from Patient Problem data . Goal is currently In Progress. Added 04/27/2013 - In Progress Goal: Hyperlipidemia means that your cholesterol is higher than normal. High cholesterol increases your risk of developing heart disease which can result in a heart attack or stroke. Cholesterol testing of your blood includes your total cholesterol, LDL (bad cholesterol), HDL (good cholesterol) and triglycerides (fats in your blood). Goal converted from Patient Problem data . Goal is currently In Progress. Added 04/07/2014 - In Progress Goal: Our goal is to provide you the ability to control your anxiety symptoms. Goal converted from Patient Problem data . Goal is currently In Progress. Added 01/20/2017 - In Progress Goal: Goal for Hepatitis, C Virus
[2020-09-19] MEDS ORDERED: ASPIRIN 81 MG CHEW TABLET PO ONE (15:30)
[2020-09-19] MEDS ORDERED: CLOPIDOGREL 75 MG TAB PO ONE (15:30)
[2020-09-19] MEDS ORDERED: ENOXAPARIN 40MG/0.4ML SYRINGE (J1650 PER 10MG) SC ONE (16:00)
[2020-09-19] MEDS ORDERED: ATORVASTATIN 20 MG TAB PO ONE (16:15)
--- OUTSIDE RECORDS SUMMARY | 2020-09-19 16:32 | CCD ---
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 12/07/2019 [facility] Lorazepam 1 MG Oral Tablet 11/08/2019 12:00:[address] [facility] ([facility]) 200 ACTUAT Albuterol 0.09 MG/ACTUAT Metered Dose Inhal er [Ventolin] 10/11/2019 12:00:[address] [facility] ([facility]) 200 ACTUAT Albuterol 0.09 MG/ACTUAT Metered Dose Inhal er [Ventolin] 10/11/2019 12:00:[address] [facility] ([facility]) Albuterol 0.83 MG/ML Inhalant Solution 10/03/2019 12:00:00 AM [facility] ([facility]) Aspirin 81 MG Chewable Tablet 10/03/2019 12:00:00 AM [facility] ([facility]) 30 ACTUAT fluticasone furoate 0.2 MG/ACTUAT Dry Powder Inhaler [Arnuity] 10/03/2019 12:00:00 AM [facility] ([facility]) 200 ACTUAT Albuterol 0.09 MG/ACTUAT Metered Dose Inhal er [Ventolin] 10/03/2019 12:00:00 AM [facility]) Lorazepam 1 MG Oral Tablet 09/20/2019 12:00:00 AM [facility] ([facility]) Stiolto Respimat 2.5-2.5 MCG/ACT Inhalation Aerosol So lution 09/19/2019 12:00:00 AM [facility]) 30 ACTUAT fluticasone furoate 0.2 MG/ACTUAT Dry Powder Inhaler [Arnuity] 07/12/2019 12:00:00 AM EST [facility] 24 HR Metformin hydrochloride 500 MG Extended Release Oral Tablet 07/10/2019 12:00:00 AM EST [facility] ([facility]) Lorazepam 1 MG Oral Tablet 07/10/2019 12:00:00 AM EST [place] ([facility]) Stiolto Respimat 2.5-2.5 MCG/ACT Inhalation Aerosol So lution 04/30/2019 12:00:00 AM EDT [place] ([facility]) Trelegy Ellipta 100-62.5-25MCG/INH Inhalation Aerosol Powder Breath Activated 03/22/2019 12:00:00 AM EDT [facility] ([facility]) magnesium citrate 58.2 MG/ML Oral Solution 03/22/2019 12:00:00 AM E DT [place] ([facility]) valacyclovir 1000 MG Oral Tablet [Valtrex] 03/22/2019 12:00:00 AM E DT [place] ([facility]) Albuterol 0.83 MG/ML Inhalant Solution 12/21/2018 12:00:00 AM EDT [facility] ([facility]) 200 ACTUAT Albuterol 0.09 MG/ACTUAT Metered Dose Inhal er [Ventolin] 12/21/2018 12:00:00 AM EDT [facility] ([facility]) Aspirin 81 MG Chewable Tablet 07/05/2018 12:00:00 AM EST [place] ([facility])
[2020-09-19] MEDS ORDERED: FOLI1TAB11 PO (16:35)
[2020-09-19] MEDS ORDERED: DALI1TAB2 PO (16:35)
[2020-09-19] MEDS ORDERED: PATIENT COMMENT (16:35)
[2020-09-19] MEDS ORDERED: FURO40TA2 PO (16:35)
[2020-09-19] MEDS ORDERED: PROT1TAB2 PO (16:35)
[2020-09-19] MEDS ORDERED: FLUO20CA20 PO (16:35)
[2020-09-19] MEDS ORDERED: ATIV1TAB7 PO (16:35)
[2020-09-19] MEDS ORDERED: ATOR1TAB21 PO (16:35)
[2020-09-19] MEDS ORDERED: TRAZ-252 PO (16:35)
[2020-09-19] MEDS ORDERED: METF750T36 PO (16:35)
[2020-09-19] MEDS ORDERED: FLUO1OPD OS (16:35)
[2020-09-19] MEDS ORDERED: SERO50TA PO (16:35)
[2020-09-19] MEDS ORDERED: CLON0.2T PO (16:35)
[2020-09-19] MEDS ORDERED: ARTIDRO OU (16:35)
[2020-09-19] MEDS ORDERED: LISI20TA33 PO (16:35)
[2020-09-19] MEDS ORDERED: TREL1AER INH (16:35)
[2020-09-19 16:53] LABS: CHOLESTEROL LEVEL 198 MG/DL (<200); HDL CHOLESTEROL 55 MG/DL (>40); LDL CHOLESTEROL 117 MG/DL (<100); NON-HDL-C 143 MG/DL; TRIGLYCERIDES LEVEL 129 MG/DL (<150)
[2020-09-19] MEDS: CARVedilol 12.5 MG TAB PO SCH (17:00)
--- NOTE | 2020-09-19 17:42 | REPVR ---
PROCEDURE INFORMATION: Exam: MR Head Without Contrast Exam date and time: 09/19/2020 5:12 PM Age: 60 years old Clinical indication: Weakness, extremity; Right; Additional info: CVA RT sided weakness/facial droop. Slurred speech TECHNIQUE: Imaging protocol: MR of the head without contrast. COMPARISON: 1. CT Head without contrast 09/19/2020 2:[address] Head without contrast 06/11/2020 3:54:43 PM FINDINGS: Limitations: The study is mildly limited due to patient motion artifact. Brain: There is restricted diffusion within the right occipital lobe. Corresponding decreased signal on the ADC map and increased T2 signal is present. The findings are consistent with an acute to subacute infarct. An additional acute/subacute lacunar infarct is present in the left andreina. There are several small acute/subacute infarcts in the lateral left cerebellar hemisphere. No hemorrhagic conversion is seen. There is no significant mass effect or midline shift. Chronic small vessel ischemic disease is noted in the periventricular white matter. Cerebral ventricles: No hydrocephalus. Bones/joints: Unremarkable. Paranasal sinuses: Normal as visualized. No acute sinusitis. Mastoid air cells: Normal as visualized. No mastoid effusion. Orbital cavity: Unremarkable. Soft tissues: Unremarkable. IMPRESSION: 1. Acute/subacute infarct involving the right occipital lobe 2. Small acute/subacute infarcts in the left andreina and left cerebellum Electronically signed by: Danilo Rodriguez On 09/19/2020 17:42:59 PM
--- NOTE | 2020-09-19 17:44 | REPVR ---
PROCEDURE INFORMATION: Exam: MR Angiography Neck Without Contrast Exam date and time: 09/19/2020 5:12 PM Age: 60 years old Clinical indication: Weakness; Additional info: CVA RT sided weakness/facial droop. Slurred speech TECHNIQUE: Imaging protocol: Magnetic resonance angiography of the neck without contrast. 3D rendering (Not supervised by radiologist): MIP and/or 3D reconstructed images were created by the technologist. COMPARISON: CT ANGIO NECK 09/19/2020 2:09 PM FINDINGS: Limitations: The study is mildly limited due to patient motion artifact. Right common carotid artery: No stenosis. No dissection or occlusion. Right internal carotid artery: There is less than 50% stenosis of the right internal carotid artery origin. Right external carotid artery: No stenosis. No dissection or occlusion of the origin. Right vertebral artery: No stenosis. No dissection or occlusion. Left common carotid artery: No stenosis. No dissection or occlusion. Left internal carotid artery: No stenosis of the extracranial segment. No dissection or occlusion. Left external carotid artery: No stenosis. No dissection or occlusion of the origin. Left vertebral artery: No stenosis. No dissection or occlusion. IMPRESSION: 1. Mildly limited exam due to motion artifact 2. Less than 50% stenosis involving the right internal carotid artery origin REFERENCES: NASCET CRITERIA. The degree of internal carotid artery stenosis is based on NASCET criteria. Normal is no stenosis. Mild is less than 50% stenosis. Moderate is 50-69% stenosis. Severe is 70% to 99% stenosis. Total occlusion is no detectable patent lumen. Electronically signed by: Danilo Rodriguez On 09/19/2020 17:45:17 PM
[2020-09-19] MEDS ORDERED: ALBUTEROL 90 MCG/ACT 8GM HFA INHALER INH PRN (17:45)
--- NOTE | 2020-09-19 17:51 | REPVR ---
PROCEDURE INFORMATION: Exam: MR Angiogram Head Without Contrast, Arteries Exam date and time: 09/19/2020 5:12 PM Age: 60 years old Clinical indication: Weakness; Additional info: CVA RT sided weakness/facial droop. Slurred speech TECHNIQUE: Imaging protocol: MR angiogram head without contrast. Exam focused on the arteries. COMPARISON: CT ANGIO HEAD 09/19/2020 2:09 PM FINDINGS: ANTERIOR CIRCULATION: Right internal carotid artery: Intracranial segment is patent with no significant stenosis. No aneurysm. Right middle cerebral artery: No occlusion or significant stenosis. No aneurysm. 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 The remaining right anterior cerebral artery is patent. Left internal carotid artery: Intracranial segment is patent with no significant stenosis. No aneurysm. Left middle cerebral artery: No occlusion or significant stenosis. No aneurysm. Left anterior cerebral artery: No occlusion or significant stenosis. No aneurysm. POSTERIOR CIRCULATION: Right vertebral artery: The right vertebral artery terminates in a posteroinferior cerebellar artery. Left vertebral artery: Minimal narrowing of the distal left vertebral artery is present. Basilar artery: There is critical stenosis involving the proximal/mid basilar artery. Right posterior cerebral artery: The right posterior cerebral artery appears diminutive compared to the left, but the P1, P2, and proximal P3 segments are patent. Left posterior cerebral artery: There is moderate stenosis of the left P1/P2 junction. IMPRESSION: 1. Severe/critical stenosis of the proximal/mid basilar artery 2. The right posterior cerebral artery appears diminutive compared to the left, but the P1, P2, and proximal P3 segments are patent. Electronically signed by: Danilo Rodriguez On 09/19/2020 17:51:33 PM
--- NOTE | 2020-09-19 18:36 | HPEPDOC ---
[facility] Medical History & Physical Date of Admission Sep 19, 2020 Date of Service: Sep 19, 2020 History and Physical CHIEF COMPLAINT: slurred speech, right sided weakness this morning HISTORY OF PRESENT ILLNESS: PAST MEDICAL HISTORY: 60-year-old male with history of [id number] smoking, quit many years ago, medical marijuana use, grade 1 LV Diastolic dysfunction, COPD, CAD s/p stenting, HTN, Asthma, Parkinsonism?, left nonobstructive nephrolithiasis, mild left hydronephrosis, 3.2 cm infrarenal abdominal aortic aneurysm, was in his usual state of health yesterday and slept at 9:30 PM, woke up around 4 or 5:00 in the morning to go to the bathroom and noted right-sided weakness. Patient went back to bed and in the morning when he got up for breakfast, has noted slurred speech, right-sided weakness and told him to come to the emergency room. Patient had right-sided facial droop, slurred speech, upper or lower extremity weakness on the right and was seen in the emergency room at 1:35 PM EDT of the head shows recent infarct involving the right posterior temporal occipital lobe with no hemorrhage. She was given aspirin, Plavix. EKG shows sinus rhythm without acute ST-T wave changes with anterior changes age in indeterminate. CTA of the head shows 75% left vertebral artery, and mid basilar artery high-grade stenosis. Emergency room RN has noted increasing difficulty swallowing and was coughing when he took some thin liquids. MRI of the brain:1. Acute/subacute infarct involving the right occipital lobe 2. Small acute/subacute infarcts in the left andreina and left cerebellum. Hospitalist was called to admit the patient for acute subacute right occipital left andreina, left cerebellar CVA. Dr. Russell neurologist suggested aspirin, Plavix, statin, echo. Patient is admitted to PCU under telemetry. Neuro checks every 4 hourly. Patient will be admitted as an inpatient. . He also complains shortness of breath for the past 1 month without dyspnea and exertion, chest pain, pressure, tightness, fever, chills. He has a chronic cough which is dry. No headaches, diarrhea at home. No other new complaints. PAST SURGICAL HISTORY: 1. Appendectomy in childhood 2. 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 REVIEW OF SYSTEMS: 12 point review of systems negative aside from positive findings in HPI HOME MEDICATIONS: Please see below. PHYSICAL EXAMINATION: VITAL SIGNS: please see below General: Slurred speech, right-sided facial drooping. No use of respiratory accessory muscles HEENT: PERRLA, EOMI, sclerae clear, left conjunctiva injected, noted yellow crusty discharge. Neck: supple, normal ROM, no JVD . Tongue deviated Respiratory: Decreased air entry bilaterally with scattered wheezing CVS: RRR, normal S1, S2, no murmurs Abdo: soft, no masses, no hepatosplenomegaly, BS+, no rebound tenderness Extremities: no edema, pulses 2+ Neuro: Right facial droop, expressive aphasia, slow speech, slurred. Tongue deviation, diffuse metria and finger to nose testing 4-5 motor function right upper and lower extremity. Positive Babinski Gait not tested. No sensory disturbance. Extraocular muscles intact Skin: tattoes in bilateral hands, upper extremities LABORATORY DATA: See below. IMAGIN09/19/20 MRIBRAIN Exam: MR Head Without Contrast Exam date and time: 09/19/2020 5:12 PM Age: 60 years old Clinical indication: Weakness, extremity; Right; Additional info: CVA RT sided weakness/facial droop. Slurred speech TECHNIQUE: Imaging protocol: MR of the head without contrast. COMPARISON: 1. CT Head without contrast 09/19/2020 2:[address] Head without contrast 06/11/2020 3:54:43 PM Subpectoral FINDINGS: Limitations: The study is mildly limited due to patient motion artifact. Brain: There is restricted diffusion within the right occipital lobe. Corresponding decreased signal on the ADC map and increased T2 signal is present. The findings are consistent with an acute to subacute infarct. An additional acute/subacute lacunar infarct is present in the left andreina. There are several small acute/subacute infarcts in the lateral left cerebellar hemisphere. No hemorrhagic conversion is seen. There is no significant mass effect or midline shift. Chronic small vessel ischemic disease is noted in the periventricular white matter. (, Strokes Cerebral ventricles: No hydrocephalus. Bones/joints: Unremarkable. Paranasal sinuses: Normal as visualized. No acute sinusitis. Mastoid air cells: Normal as visualized. No mastoid effusion. Orbital cavity: Unremarkable. Soft tissues: Unremarkable. IMPRESSION: 1. Acute/subacute infarct involving the right occipital lobe 2. Small acute/subacute infarcts in the left andreina and left cerebellum 09/19/20 CT HEAD WITHOUT CONTRAST INDICATION: CVA - Nursing interventions must not delay CT. COMPARISON: Comparison CT study June 11, 2020.. TECHNIQUE: Helical scanning is acquired. 5 mm axial images were reformatted. Coronal MPR images were generated. 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 Bone window settings demonstrate vascular calcification in the distal internal carotid and distal vertebral arteries. The bony calvarium is intact. Visualized paranasal sinuses are clear. No intraorbital abnormality is seen. On soft tissue window settings, there is a new area of low density representing encephalomalacia in the right posterior temporal lobe consistent with recent infarction. This extends towards the occipital lobe. There is no evidence of intracranial hemorrhage. No extra-axial fluid collection is seen. No mass or midline shift is observed. IMPRESSION: New low-density area in the right posterior temporal lobe and occipital lobe region consistent with recent infarction. No hemorrhage seen. Vascular calcification noted.. <Electronically signed by Warren Garcia > 09/19/[address] ANGIO HEAD 09/19/20 CT contrast dose: 100 ml of intravenous Isovue 370. CT technique: Helical scanning is acquired. 2 mm axial images are reformatted. Maximal intensity projection and multiplanar re-formation images are generated along with 3-D surface rendered color imaging which is viewed rotational. FINDINGS: The right distal vertebral artery appears to terminate in inferior cerebellar arteries rather than joining with the left. The right distal vertebral artery is quite a bit smaller than its left-sided counterpart. The left distal vertebral artery shows heavy focal almost circumferential calcific plaquing and significant narrowing, probably 75%. In addition, the mid basilar artery shows a high-grade stenosis approximately 75%. The right posterior cerebral artery is smaller than its left-sided counterpart but appars patent proximally. The left posterior cerebral is unremarkable. The distal internal carotid arteries show calcification at the siphons but no high-grade stenosis. The middle cerebral arteries and anterior cerebral arteries are intact. The right A1 segment is hypoplastic compared to the left. No vessel cutoff is seen. No evidence of arteriovenous malformation or ross aneurysm. The sagittal and bilateral sigmoid sinuses are patent. Straight sinus is patent. IMPRESSION: High-grade stenosis of the dominant but heavily calcified left distal vertebral artery shows heavy focal almost circumferential calcific plaquing and significant narrowing, probably 75%. In addition, the mid basilar artery shows a high-grade stenosis approximately 75%. The right posterior cerebral artery is smaller than its left-sided counterpart but appears patent proximally. The left posterior cerebral is unremarkable. The distal internal carotid arteries show calcification at the siphons but no high-grade stenosis. The middle cerebral arteries and anterior cerebral arteries are intact. The right A1 segment is hypoplastic compared to the left. No vessel cu toff is seen. No evidence of arteriovenous malformation or ross aneurysm. The sagittal and bilateral sigmoid sinuses are patent. Straight sinus is patent. IMPRESSION: High-grade stenosis of the dominant but heavily calcified left distal vertebral artery. Right distal vertebral artery is small and ends in in inferior cerebellar vessels rather than joining with the left side. There is a high-grade mid basilar artery stenosis as well, 75%. The right posterior cerebral artery is small but appears patent. The right A1 segment is hypoplastic. Calcifications seen in the carotid siphons bilaterally. Otherwise negative. <Electronically signed by Warren Garcia > 09/19/20 1448 09/19/20 CXR COMPARISON: Comparison chest x-ray 13 June 2020. TECHNIQUE: Portable upright AP chest radiograph. Two views. FINDINGS: The lungs are somewhat hyperinflated but free of infiltrate. Pleural angles are sharp. Heart is borderline unchanged. Pulmonary vasculature is not increased. Monitoring electrodes are seen.. No acute bony abnormality is appreciated. . IMPRESSION: No active disease. <Electronically signed by Warren Garcia > 09/19/20 1452 06/12/2020 ECHOCARDIOGRAM DATE OF PROCEDURE: 06/12/2020 Age: 59 Gender: Male Height: 185 cm Weight: 114 kg REFERRING PHYSICIAN: Gianni Shannon MD INDICATION: Dysesthesia, unspecified. MEASUREMENTS: 2D Measurements: Left ventricle diastole 6.7 cm Interventricular septum 1.37 cm Posterior wall 1.26 cm Aortic root 3.6 cm Left atrium 5.2 cm Inferior vena cava 2.1 cm Doppler Measurements: No aortic stenosis No aortic regurgitation Very mild mitral regurgitation No mitral stenosis Aortic valve velocity 138 cm/s LVOT velocity 116 cm/s LVOT VTI 21.4 cm Mitral E velocity 77.1 cm/s Mitral A velocity 137 cm/s No tricuspid regurgitation No pulmonic regurgitation Pulmonary artery acceleration time 166 m/s MITRAL ANNULAR TISSUE DOPPLER E prime septal 6.5 cm/s DESCRIPTION: Rhythm was sinus. No pericardial effusion. This was a 2D, M-mode, color flow Doppler, and pulsed wave Doppler examination including mitral annulartissue Doppler. Moderately technically difficulty echocardiogram. CONCLUSIONS: 1. Mildly dilated left ventricle with mild eccentric left ventricular hypertrophy. Normal regional left ventricular (LV) wall motion and wall thickening. Normal left ventricular (LV) systolic function. Left ventricular ejection fraction (LVEF) 60% by visual estimate. Grade 1 left ventricular (LV) diastolic dysfunction (impaired relaxation filling pattern). 2. Moderate left atrial dilatation. 3. Pulmonary artery systolic pressure not elevated. Normal right ventricle sizeand systolic function. No interatrial shunt by color flow Doppler assessment. 4. Mild aortic valve sclerosis of a 3-cuspid aortic valve. No aortic regurgitation. 5. Mild mitral annular calcification. Very mild mitral regurgitation. 6. Moderately technically difficult echocardiogram. DD: Charanjit Mendoza MD [facility] 06/12/201999 ASSESSMENT AND PLAN: 60-year-old male with history of [id number] smoking, quit many years ago, me dical marijuana use, grade 1 LV Diastolic dysfunction, COPD, CAD s/p stenting, HTN, Asthma, Parkinsonism?, left nonobstructive nephrolithiasis, mild left hydronephrosis, 3.2 cm infrarenal abdominal aortic aneurysm, was in his usual state of health yesterday and slept at 9:30 PM, woke up around 4 or 5:00 in the morning to go to the bathroom and noted right-sided weakness. Patient went back to bed and in the morning when he got up for breakfast, has noted slurred speech, right-sided weakness and told him to come to the emergency room. Patient had right-sided facial droop, slurred speech, upper or lower extremity weakness on the right and was seen in the emergency room at 1:35 PM EDT of the head shows recent infarct involving the right posterior temporal occipital lobe with no hemorrhage. She was given aspirin, Plavix. EKG shows sinus rhythm without acute ST-T wave changes with anterior changes age in indeterminate. CTA of the head shows 75% left vertebral artery, and mid basilar artery high-grade stenosis. Emergency room RN has noted increasing difficulty swallowing and was coughing when he took some thin liquids. MRI of the brain:1. Acute/subacute infarct involving the right occipital lobe 2. Small acute/subacute infarcts in the left andreina and left cerebellum. Hospitalist was called to admit the patient for acute subacute right occipital left andreina, left cerebellar CVA. Dr. Russell neurologist suggested aspirin, Plavix, statin, echo. Patient is admitted to PCU under telemetry. Neuro checks every 4 hourly. Patient will be admitted as an inpatient for 2 minutes. Acute/subacute infarct involving the right occipital lobe & Small acute/subacute infarcts in the left andreina and left cerebellum. Acute right posterior temporal lobe and occipital lobe cerebrovascular infarction. -admitted to pcu, telemetry to rule out Afib/Aflutter, continue ASA, plavix, lipitor, echocardiogram with bubble study, hypercoagulable workup, and may need DEE, lovenox for dvt prophylaxis, neurochecks q4hrs, neurology Dr. Russell consulted. MRI MRA brain and carotids, ARU screen, speech evaluation to rule out aspiration, assisted ambulation, fall risk precautions, activity as tolerated. allow for permissive hypertension with a 15% decrease in presenting blood pressure 204 systolic from admission for the first 24hrs, around 173mmhg with range of 170-180 mmhg. left distal vertebral artery 75% stenosis 75%. mid basilar artery 75% stenosis -medical management with ASA, plavix,lipitor. Aspiration risk -Swallow evaluation, nothing by mouth for signs of aspiration Hypertensive Urgency -allow for permissive hypertension due to acute cva, with a 15% decrease in presenting blood pressure 204 systolic from admission for the first 24hrs, around 173mmhg with range of 170-180 mmhg. grade 1 LV Diastolic dysfunction, -resumed asa, lipitor, coreg, but will titrate bp meds to allow for permissive hypertension. COPD with acute exacerbation. -Solu-Medrol, nebulizer, Spiriva, supplemental oxygen to keep saturations above 90% CAD s/p stenting -on asa,plavix, lipitor Asthma -compensated left nonobstructive nephrolithiasis -asymptomatic mild left hydronephrosis -normal creatinine 3.2 cm infrarenal abdominal aortic aneurysm -titrate bp meds . Diet; 2gram sodium but change per speech therapy recommendations if signs of aspiration DVT Prophylaxis: lovenox Code status: full code. Vital Signs Vital Signs Date Time Temp Pulse Resp B/P (MAP) Pulse Ox O2 Delivery O2 Flow Rate FiO2 09/19/20 13:57 97.0 87 20 204/112 (142) 100 Nasal Cannula 3.5 Laboratory Data Labs 24H Laboratory Tests 2 09/19/20 13:59: POC Glucose (Misc Panel) 142H, POC Sodium (Misc Panel) 138, POC Potassium (Misc Panel) 3.7, POC Chloride (Misc Panel) 97L, POC Total CO2 (Misc Panel) 32.0H, POC Blood Urea Nitrogen (Misc Panel 12, POC Ionized Calcium (Misc Panel) 4.9, POC Creatinine (Misc Panel) 0.7, POC Hematocrit (Misc Panel) 42.0 09/19/20 14:02: Immature Granulocyte % (Auto) 0.3, Neutrophils (%) (Auto) 60.9, Lymphocytes (%) (Auto) 31.4, Monocytes (%) (Auto) 6.0, Eosinophils (%) (Auto) 0.8, Basophils (%) (Auto) 0.6, Neutrophils # (Auto) 6.5, Lymphocytes # (Auto) 3.3, Monocytes # (Auto) 0.6, Eosinophils # (Auto) 0.1, Basophils # (Auto) 0.1, Nucleated Red Blood Cells % (auto) 0.0, Activated Partial Thromboplast Time 27.3, Total Creatine Kinase 45, Creatine Kinase MB 1.2, Creatine Kinase MB Relative Index 2.67, Troponin I < 0.02 CBC/BMP Laboratory Tests 09/19/20 14:02 Microbiology Microbiology 09/19/20 Respiratory Virus Panel (PCR) ([facility]), Received Pending Home Medications Scheduled Atorvastatin Calcium (Atorvastatin Calcium) 20 Mg Tablet, 20 MG PO QHS Clonidine HCl (Clonidine HCl) 0.2 Mg Tablet, 0.2 MG PO BID Fluorometholone (Fluorometholone) 0.1% 5ML Drops.susp, 1 DROP OS TID Fluoxetine Hcl (Fluoxetine HCl) 20 Mg Capsule, 60 MG PO DAILY Fluticasone/Umeclidin/Vilanter (Trelegy Ellipta 100-62.5-25) 1 Each Blst.w.dev, 1 PUFF INH DAILY Folic Acid (Folic Acid) 1 Mg Tablet, 1 MG PO DAILY Furosemide (Furosemide) 40 Mg Tablet, 40 MG PO BID Glycerin/Propylene Glycol (Artificial Tears Drops) 15 Ml Drops, 1 DROP OU TID Lisinopril (Lisinopril) 20 Mg Tablet, 20 MG PO DAILY Metformin HCl (Metformin HCl ER) 750 Mg Tab.er.24h, 750 MG PO DAILY Pantoprazole Sodium (Protonix) 40 Mg Tablet.dr, 40 MG PO DAILY Quetiapine Fumarate (Seroquel) 50 Mg Tablet, 50 MG PO QHS Roflumilast (Daliresp) 500 Mcg Tablet, 500 MCG PO DAILY Trazodone HCl (Trazodone HCl) 50 Mg Tablet, 100 MG PO QHS Scheduled PRN Lorazepam (Ativan) 1 Mg Tablet, 1 MG PO Q8H PRN for ANXIETY Miscellaneous Medications [Patient Comment] PATIENT STATES HE HAS NOT TAKEN ANY MEDICATIONS IN 2-3 MONTHS. MED LIST OBTAINED FROM [facility] PILL BOTTLES BROUGHT IN BY PATIENT, MEDS LAST FILLED 06/2020 Allergies Coded Allergies: fentanyl (Verified Allergy, Unknown, 06/11/20) A-FIB/CHADSVASC A-FIB History Current/History of A-Fib/PAF?: No Current PO Anticoag Therapy: No Age/Risk Factor Scoring CHADSVASC: CHADSVASC Response (Comments) Value Age Risk Factor Age < 65 years old 0 Gender Risk Factor Male 0 Hx of CHF No 0 Hx of HTN Yes 1 Hx of Stroke/TIA/or VTE Yes 2 Hx of Diabetes Yes 1 Hx of Vascular Disease No 0 Total 4 Treatment Treatment ordered: NONE KELL HAIR MD Sep 19, 2020 16:20
--- NOTE | 2020-09-19 18:41 | IPNPDOC ---
Date Seen The patient was seen on 09/19/20. Progress Note no answer [phone] left message for family to call to receive an update. VS, I&O, 24H, Fishbone Vital Signs/I&O Vital Signs Date Time Temp Pulse Resp B/P (MAP) Pulse Ox O2 Delivery O2 Flow Rate FiO2 09/19/20 16:15 74 158/106 (123) 100 09/19/20 13:57 97.0 20 Nasal Cannula 3.5 Laboratory Data 24H LABS Laboratory Tests 2 09/19/20 13:59: POC Glucose (Misc Panel) 142H, POC Sodium (Misc Panel) 138, POC Potassium (Misc Panel) 3.7, POC Chloride (Misc Panel) 97L, POC Total CO2 (Misc Panel) 32.0H, POC Blood Urea Nitrogen (Misc Panel 12, POC Ionized Calcium (Misc Panel) 4.9, POC Creatinine (Misc Panel) 0.7, POC Hematocrit (Misc Panel) 42.0 09/19/20 14:02: Immature Granulocyte % (Auto) 0.3, Neutrophils (%) (Auto) 60.9, Lymphocytes (%) (Auto) 31.4, Monocytes (%) (Auto) 6.0, Eosinophils (%) (Auto) 0.8, Basophils (%) (Auto) 0.6, Neutrophils # (Auto) 6.5, Lymphocytes # (Auto) 3.3, Monocytes # (Auto) 0.6, Eosinophils # (Auto) 0.1, Basophils # (Auto) 0.1, Nucleated Red Blood Cells % (auto) 0.0, Activated Partial Thromboplast Time 27.3, Total Cr eatine Kinase 45, Creatine Kinase MB 1.2, Creatine Kinase MB Relative Index 2.67, Troponin I < 0.02, Triglycerides Level 129, Total Cholesterol 198, LDL Cholesterol 117H, Non-HDL Cholesterol (LDL + VLDL) 143, Total HDL Cholesterol 55, Cholesterol/HDL Ratio 3.600 CBC/BMP Laboratory Tests 09/19/20 14:02 Microbiology Microbiology 09/19/20 Respiratory Virus Panel (PCR) ([facility]) - Final, Complete KELL HAIR MD Sep 19, 2020 18:41
[2020-09-19] MEDS ORDERED: LEVALBUTEROL 1.25 MG/0.5 ML CONCENTRATE NEB INH PRN (18:45)
[2020-09-19] MEDS: LEVALBUTEROL 1.25 MG/0.5 ML CONCENTRATE NEB INH SCH ×2 (20:16→23:20)
[2020-09-19] MEDS: FLUOROMETHOLONE 0.1% OPHTH SUSP 5 ML BTL OS SCH (21:00)
[2020-09-19] MEDS: POLYVINYL ALCOHOL OPHTH SOLN 15 ML(LIQUITEARS) OU SCH (21:00)
[2020-09-19] MEDS ORDERED: FOLIC ACID 1 MG in NS 50 ML IV SCH (21:00)
[2020-09-19 21:23] VITALS: BP 164/94
[2020-09-19] MEDS: methylPREDNISolone 125MG 2ML VIAL IV SCH (23:05)
[2020-09-19] MEDS: PANTOPRAZOLE 40MG VIAL (C9113 PER 1) IV SCH (23:05)
[2020-09-19 23:28] VITALS: BP 170/100
--- NOTE | 2020-09-19 23:46 | IPNPDOC ---
Subjective Date Seen The patient was seen on 09/19/20. Subjective Chief Complaint/HPI At 11:25PM, was notified by nurse of new neurologic changes. Patient felt that he was having trouble speaking again. In addition, the right sided facial droop was worse and right arm weakness was increased. I went to see him around 11:30PM. He said that he was feeling nauseous when it all started, but feeling better now. Feels that the right arm was slightly getting stronger again. Contacted Dr. Russell. Recommended CT head and maintaining a higher blood pressure. Can give IVF bolus to help maintain. I've ordered for repeat CT head and labs. S BP during the event was 180s. Currently SBP 170s. CT head negative. No hemorrhagic conversion. Patient feeling better. Remain on the floor Assessment /Plan Plan/VTE VTE Prophylaxis Ordered?: Yes VS, I&O, 24H, Fishbone Vital Signs/I&O Vital Signs Date Time Temp Pulse Resp B/P (MAP) Pulse Ox O2 Delivery O2 Flow Rate FiO2 09/19/20 21:23 98.1 70 24 164/94 (117) 94 Nasal Cannula 3.0 Laboratory Data 24H LABS Laboratory Tests 2 09/19/20 13:59: POC Glucose (Misc Panel) 142H, POC Sodium (Misc Panel) 138, POC Potassium (Misc Panel) 3.7, POC Chloride (Misc Panel) 97L, POC Total CO2 (Misc Panel) 32.0H, POC Blood Urea Nitrogen (Misc Panel 12, POC Ionized Calcium (Misc Panel) 4.9, POC Creatinine (Misc Panel) 0.7, POC Hematocrit (Misc Panel) 42.0 09/19/20 14:02: Immature Granulocyte % (Auto) 0.3, Neutrophils (%) (Auto) 60.9, Lymphocytes (%) (Auto) 31.4, Monocytes (%) (Auto) 6.0, Eosinophils (%) (Auto) 0.8, Basophils (%) (Auto) 0.6, Neutrophils # (Auto) 6.5, Lymphocytes # (Auto) 3.3, Monocytes # (Auto) 0.6, Eosinophils # (Auto) 0.1, Basophils # (Auto) 0.1, Nucleated Red Blood Cells % (auto) 0.0, Activated Partial Thromboplast Time 27.3, Total Creatine Kinase 45, Creatine Kinase MB 1.2, Creatine Kinase MB Relative Index 2.67, Troponin I < 0.02, Triglycerides Level 129, Total Cholesterol 198, LDL Cholesterol 117H, Non-HDL Cholesterol (LDL + VLDL) 143, Total HDL Cholesterol 55, Cholesterol/HDL Ratio 3.600 CBC/BMP Laboratory Tests 09/19/20 14:02 Microbiology Microbiology 09/19/20 Respiratory Virus Panel (PCR) ([facility]) - Final, Complete JOELLE SAUCEDO DO Sep 19, 2020 23:46
[2020-09-20] VITALS (10 sets, daily range): BP systolic 150–172; BP diastolic 90–110
--- NOTE | 2020-09-20 00:08 | REPVR ---
PROCEDURE INFORMATION: Exam: CT Head Without Contrast Exam date and time: 09/19/2020 11:33 PM Age: 60 years old Clinical indication: Other: New cvasymptoms right side weak; Additional info: New CVA symptoms TECHNIQUE: Imaging protocol: Computed tomography of the head without contrast. Radiation optimization: All CT scans at this facility use at least one of these dose optimization techniques: automated exposure control; mA and/or kV adjustment per patient size (includes targeted exams where dose is matched to clinical indication); or iterative reconstruction. COMPARISON: CT Head without contrast 09/19/2020 2:09 PM FINDINGS: Brain: Small area of old or subacute infarct involving the right occipital lobe. The remaining delgadillo and white matter is normal. The sulci are normal. Cerebral ventricles: No ventriculomegaly. Bones/joints: Unremarkable. No acute fracture. Paranasal sinuses: Hypoplasia of the right maxillary sinus. Mastoid air cells: Poor pneumatization of mastoid air cells. Soft tissues: Unremarkable. IMPRESSION: There has been little change from a study done earlier in the day with an area of old or subacute infarct in the right occipital lobe. No interval hemorrhagic conversion. Electronically signed by: Quirino Brasher On 09/20/2020 00:08:16 AM
[2020-09-20 00:10] LABS: HEMATOCRIT 39.9 % (42.0-52.0); HEMOGLOBIN 12.7 g/dl (13.5-17.5); MEAN CORPUSCULAR HEMOGLOBIN 31.7 pg (27.0-33.0); MEAN CORPUSCULAR HGB CONC 31.8 g/dl (32.0-36.5); MEAN CORPUSCULAR VOLUME 99.5 fl (80.0-96.0); PLATELET COUNT, AUTOMATED 235 10^3/uL (150-450); RED BLOOD COUNT 4.01 10^6/uL (4.30-6.10); WHITE BLOOD COUNT 12.1 10^3/uL (4.0-10.0)
[2020-09-20 00:19] LABS: INR 0.97; PROTHROMBIN TIME 13.1 SECONDS (12.5-14.3)
[2020-09-20 00:20] LABS: PARTIAL THROMBOPLASTIN TIME 29.6 SECONDS (24.2-38.5)
[2020-09-20 00:41] LABS: BLOOD UREA NITROGEN 11 MG/DL (7-18); CALCIUM LEVEL 9.2 MG/DL (8.5-10.1); CARBON DIOXIDE LEVEL 32 MEQ/L (21-32); CHLORIDE LEVEL 103 MEQ/L (98-107); CREATININE FOR GFR 0.81 MG/DL (0.70-1.30); GLOMERULAR FILTRATION RATE > 60.0 (>56); GLUCOSE, FASTING 142 MG/DL (70-100); POTASSIUM SERUM 3.7 MEQ/L (3.5-5.1); SODIUM LEVEL 140 MEQ/L (136-145)
[2020-09-20] MEDS: LEVALBUTEROL 1.25 MG/0.5 ML CONCENTRATE NEB INH SCH ×6 (04:34→23:42)
[2020-09-20] MEDS: methylPREDNISolone 125MG 2ML VIAL IV SCH ×4 (04:42→21:19)
[2020-09-20 04:58] LABS: HEMATOCRIT 40.6 % (42.0-52.0); HEMOGLOBIN 12.7 g/dl (13.5-17.5); MEAN CORPUSCULAR HGB CONC 31.3 g/dl (32.0-36.5); PLATELET COUNT, AUTOMATED 253 10^3/uL (150-450); WHITE BLOOD COUNT 9.4 10^3/uL (4.0-10.0)
[2020-09-20 05:33] LABS: BLOOD UREA NITROGEN 12 MG/DL (7-18); CARBON DIOXIDE LEVEL 29 MEQ/L (21-32); CHLORIDE LEVEL 103 MEQ/L (98-107); CREATININE FOR GFR 0.78 MG/DL (0.70-1.30); GLOMERULAR FILTRATION RATE > 60.0 (>56); GLUCOSE, FASTING 160 MG/DL (70-100); MAGNESIUM LEVEL 1.9 MG/DL (1.8-2.4); SODIUM LEVEL 141 MEQ/L (136-145); TROPONIN I 0.02 NG/ML (< 0.10)
[2020-09-20] MEDS: ENOXAPARIN 40MG/0.4ML SYRINGE (J1650 PER 10MG) SC SCH (08:26)
[2020-09-20] MEDS: FLUOROMETHOLONE 0.1% OPHTH SUSP 5 ML BTL OS SCH ×3 (08:27→21:20)
[2020-09-20] MEDS: CLOPIDOGREL 75 MG TAB PO SCH (08:27)
[2020-09-20] MEDS: ASPIRIN 81 MG ENTERIC TAB PO SCH (08:27)
[2020-09-20] MEDS: CARVedilol 12.5 MG TAB PO SCH (08:32)
[2020-09-20] MEDS: TIOTROPIUM INHALER/CAPSULE (SPIRIVA) INH SCH (08:36)
[2020-09-20] MEDS ORDERED: LABETALOL 100MG TAB PO SCH (09:00)
[2020-09-20] MEDS ORDERED: PANTOPRAZOLE 40MG TAB (PROTONIX) PO SCH (09:00)
[2020-09-20] MEDS ORDERED: FLUBLOK(EGG FREE)(QUAD)INFLUENZA VACC 0.5ML SYRINGE 18YRS & OLDER IM SCH (09:00)
[2020-09-20] MEDS ORDERED: FLUoxetine 20 MG CAP PO SCH (09:00)
[2020-09-20] MEDS ORDERED: FOLIC ACID 1 MG TAB PO SCH (09:00)
[2020-09-20] MEDS: POLYVINYL ALCOHOL OPHTH SOLN 15 ML(LIQUITEARS) OU SCH ×4 (09:12→21:20)
[2020-09-20] MEDS: NS 1,000 ML IV SCH ×3 (09:12→22:10)
[2020-09-20] MEDS ORDERED: PILL CUTTER 1 EACH XX PRN (10:30)
[2020-09-20] MEDS ORDERED: oxyCODONE 5MG TAB PO ONE (11:00)
[2020-09-20] MEDS ORDERED: ACETAMINOPHEN 500 MG TAB PO ONE (11:00)
[2020-09-20] MEDS: FOLIC ACID 1 MG TAB PO SCH (11:11)
--- NOTE | 2020-09-20 11:54 | IPN ---
PROGRESS NOTE DATE: 09/20/20 SUBJECTIVE: Overnight patient had increasing right upper and lower extremity weakness and expressive aphasia. Repeat CT of the head at 23:33 showed little change from earlier study with old subacute infarct in the right occipital lobe with no intraval hemorrhagic conversion. Patient this morning says that his speech is improved; he is tolerating his diet with thickened liquids and pured. He denies any worsening vision. He complains of some nasal dryness. Upper and lower extremity on the right is improved. He is requesting assistance with ambulation. He is able to eat by himself without any difficulty. He is alert and oriented to self, answering questions appropriately. Patient's breathing is also slightly better on Solu-Medrol with decreased wheezing and improved air entry. He is still on Solu-Medrol for COPD and Xopenex 1.25 mg q1h as needed for wheezing. Patient's albuterol has been discontinued due to sinus tachycardia. PHYSICAL EXAMINATION ON DISCHARGE: Vital signs: Temperature 98.1, pulse 125, sinus tachycardia, blood pressure 170/110, 92% on 3 liters nasal cannula. General: Awake, alert, oriented to person, place and time, answering questions appropriately. Patient's expressive aphasia is improved and facial asymmetry is improved with less nasolabial drooping on the right. Tongue is still deviated to the right side. Finger to nose testing has some slight dysmetria. Motor function is 4/5 in the right upper and lower extremities. Gait was not tested. Left upper and lower extremities are 5/5 strength, no sensory disturbance. Facial drooping still noted on the right side. Patient's speech is clear, able to be comprehended, improved from yesterday when his speech was slurred. HEENT: Pupils are equally round and reactive to light and accommodation. Left eye has increased tearing and white/yellow discharge. No sclerae injection or conjunctival injection. Neck: No JVD, no thyromegaly. Lungs: No stridor. Lungs are diminished with bilateral wheezing. Heart: S1 and S2 regular rate and rhythm. Abdomen: Soft, nontender, nondistended. Extremities: No pitting edema. Multiple tattoos on bilateral upper extremities and fingers. Neurologic: Pupils are equally round and reactive to light and accommodation, extraocular muscles are intact, tongue is deviated to the right, mild right facial drooping improved from yesterday. Speech is fluent. He has no slurring of speech or expressive aphasia. Motor function is diminished in the right upper and lower extremities at 4/5. Gait was not tested. Left upper and lower extremities 5/5. There is no sensory disturbance. Positive Babinski. LABORATORY DATA: White count 9.4, hemoglobin 12, hematocrit 40, platelet count 253. Sodium 141, potassium 4, chloride 103, bicarb 29, BUN 12, creatinine 0.78, glucose 160, magnesium 1.9. Troponin 0.02. Triglycerides 129, LDL 117, total cholesterol 198, HDL 143. Respiratory panel negative including Coronavirus. IMAGING STUDIES: MRI of the brain 09/19/20: Small acute/subacute infarct left andreina, left cerebellum and right occipital lobe. MRA of the brain: Severe critical stenosis of the proximal mid basal artery, right posterior cerebral artery appears diminutive compared to the left, but the P1, P2 and proximal P3 segments are patent. MRA of the carotids: Left than 50% stenosis in the right internal carotid artery. CTA of the head: 75% plaquing of the left distal vertebral artery and mid basal artery. ASSESSMENT: This 60-year-old male with history of a 30 pack year smoking cigarettes, grade 1 left ventricular diastolic dysfunction, COPD on 3 liters home oxygen with chronic hypoxic respiratory failure, CAD, stenting, hypertension, asthma, questionable Parkinson's disease, left non-obstructive nephrolithiasis with chronic left hydronephrosis, a 3.2 cm infrarenal abdominal aortic aneurysm was in his usual state of health until yesterday morning when he woke up with right sided weakness, facial drooping and expressive aphasia with slurred speech. Patient was normal and last known to be normal neurologically at 9:30 p.m. Patient presented to the Emergency Room at 1:35 p.m., was found to have acute bilateral CVA in the right occipital, left pontine and cerebellum with 75% stenosis of the left distal vertebral artery and basal artery. Patient had been given aspirin, Plavix and Lipitor, kept on neuro checks every 4 hours with blood pressure maintained between 170-180, normal saline had been started. Current issues: 1. Bilateral CVA involving the right occipital, left pontine, left cerebellar with 75% stenosis of the left distal vertebral artery and basal artery: Patient is currently maintained on antiplatelet dual therapy with aspirin and Plavix. Lipitor has been increased to 40 mg. DVT prophylaxis with Lovenox. Speech therapy has been consulted regarding possible aspiration. He is currently on a modified dysphagia diet with thickened liquids and a pured diet with no signs of active aspiration. He is continued on I.V. fluids to maintain systolic blood pressure 170-180 to allow for permissive hypertension and to improve cerebral perfusion. Dr. Russell has been consulted and recommended 2 demential echocardiogram. Prior echo done in June, showed grade 1 left ventricular diastolic dysfunction with no significant valvular disease. Repeat echo is being done to rule out any atrial thrombus. Acute rehab unit screen, PT/OT and continue to monitor neurologically every 4 hours. For blood pressure issues patient may be given low dose labetalol 50 mg q12h with holding parameters to keep systolic pressure maintained at 170-180 for the next 24 hours, but diastolic pressure needs to be less than 100 mmHg. 2. COPD exacerbation: Patient had been having trouble breathing for about a month with increasing wheezing at home. He is currently on Solu-Medrol with improved wheezing on exam and no complaints of dyspnea on exertion. He was initially given albuterol, but developed sinus tachycardia and now changed to Xopenex. 3. Hypertensive urgency: Patient has been kept on labetalol with systolic pressure to be held for less than 180 for permissive hypertension. In light of bilateral CVA patient's Coreg and KAYA inhibitor have both been discontinued. 4. History of CAD, [place]: Patient is currently on aspirin, Plavix, Lipitor, labetalol for blood pressure control. Coreg has been discontinued and KAYA inhibitor held due to permissive hypertension to keep systolic pressure 170-180. 5. Chronic hypoxic respiratory failure on 3 liters of home oxygen: Patient is chronically on 3 liters and currently at baseline. 6. History of chronic hydronephrosis with non-obstructive nephrolithiasis: Creatinine is normal. Patient currently is receiving normal saline to keep systolic pressure at 170-180 for the next 24 hours. 7. A 3.2 cm infrarenal abdominal aortic aneurysm: Patient is asymptomatic. We will titrate blood pressure medications for the next 24-48 hours. 8. DVT prophylaxis: With Lovenox. 9. Diet: Currently on a thickened liquid and pured diet due to possible aspiration. 10. Disposition: Patient is awaiting echocardiogram, ARU evaluation and further neurology recommendations. Patient will be here for the next 2-3 days pending results of the diagnostic studies as well as acute rehab screening. MTDD
[2020-09-20] MEDS ORDERED: NS 500 ML IV ONE (17:00)
--- NOTE | 2020-09-20 20:44 | ECGEPIP ---
[facility] - ED Test Date: 2020-09-19 Pat Name: ELIEZER SEN Department: Room: - Gender: Male [employer] Worker: : 1960 Requested By: Ginny Hodge Order Number: [id number] Reading MD: Ginny Hodge Measurements Intervals [place] Rate: 80 P: 82 [place]: 194 QRS: 7 QRSD: 106 T: 36 QT: 404 QTc: 465 Interpretive Statements Sinus rhythm with marked sinus arrhythmia Anterolateral infarct , age undetermined baseline artifact may affect interpretation russ 06/11/20 Electronically Signed on 09-20-2020 20:44:28 EST by Ginny Hodge
[2020-09-20] MEDS: PANTOPRAZOLE 40MG VIAL (C9113 PER 1) IV SCH (21:19)
[2020-09-20] MEDS: ATORVASTATIN 20 MG TAB PO SCH (21:20)
[2020-09-21] VITALS: BP_SYST 140; BP_SYST 162; BP_DIAS 86; BP_DIAS 90
[2020-09-21] MEDS: methylPREDNISolone 125MG 2ML VIAL IV SCH ×3 (02:02→13:22)
[2020-09-21] MEDS: LEVALBUTEROL 1.25 MG/0.5 ML CONCENTRATE NEB INH SCH ×6 (03:20→23:37)
[2020-09-21 04:00] VITALS: BP 170/102
[2020-09-21] MEDS: NS 1,000 ML IV SCH ×3 (05:05→20:39)
[2020-09-21 05:44] LABS: HEMATOCRIT 37.2 % (42.0-52.0); HEMOGLOBIN 11.5 g/dl (13.5-17.5); MEAN CORPUSCULAR HEMOGLOBIN 30.7 pg (27.0-33.0); MEAN CORPUSCULAR HGB CONC 30.9 g/dl (32.0-36.5); MEAN CORPUSCULAR VOLUME 99.2 fl (80.0-96.0); PLATELET COUNT, AUTOMATED 218 10^3/uL (150-450); RED BLOOD COUNT 3.75 10^6/uL (4.30-6.10); WHITE BLOOD COUNT 12.6 10^3/uL (4.0-10.0)
[2020-09-21 06:09] LABS: BLOOD UREA NITROGEN 15 MG/DL (7-18); CARBON DIOXIDE LEVEL 30 MEQ/L (21-32); CHLORIDE LEVEL 108 MEQ/L (98-107); CREATININE FOR GFR 0.78 MG/DL (0.70-1.30); GLOMERULAR FILTRATION RATE > 60.0 (>56); GLUCOSE, FASTING 170 MG/DL (70-100); MAGNESIUM LEVEL 2.1 MG/DL (1.8-2.4); POTASSIUM SERUM 4.1 MEQ/L (3.5-5.1); SODIUM LEVEL 143 MEQ/L (136-145)
[2020-09-21] MEDS ORDERED: PROV108A INH (07:29)
[2020-09-21] MEDS ORDERED: PRED10TA2 PO (07:29)
[2020-09-21] MEDS ORDERED: CLOP75TA2 PO (07:29)
[2020-09-21] MEDS ORDERED: PRIL20TA2 PO (07:29)
[2020-09-21] MEDS ORDERED: ASPI81TAEC PO (07:29)
[2020-09-21] MEDS ORDERED: SPIR1CAP INH (07:29)
[2020-09-21] MEDS ORDERED: ATOR1TAB21 PO (07:29)
[2020-09-21] MEDS: TIOTROPIUM INHALER/CAPSULE (SPIRIVA) INH SCH ×2 (07:50→11:26)
[2020-09-21 08:38] VITALS: BP 181/100
[2020-09-21] MEDS: ASPIRIN 81 MG ENTERIC TAB PO SCH (08:43)
[2020-09-21] MEDS: LORazepam 1 MG TAB PO PRN ×2 (08:43→22:26)
[2020-09-21] MEDS: FOLIC ACID 1 MG TAB PO SCH (08:44)
[2020-09-21] MEDS: CLOPIDOGREL 75 MG TAB PO SCH (08:44)
[2020-09-21] MEDS: POLYVINYL ALCOHOL OPHTH SOLN 15 ML(LIQUITEARS) OU SCH ×4 (08:45→20:40)
[2020-09-21] MEDS: ENOXAPARIN 40MG/0.4ML SYRINGE (J1650 PER 10MG) SC SCH (08:54)
[2020-09-21] MEDS: FLUOROMETHOLONE 0.1% OPHTH SUSP 5 ML BTL OS SCH ×3 (09:04→20:39)
--- NOTE | 2020-09-21 09:32 | IPNPDOC ---
Date Seen The patient was seen on 09/21/20. Progress Note Subjective: Patient wanted to be discharged AGAINST MEDICAL ADVICE this morning because he could not drink normal coffee and drink water. His convinced him to stay for medical treatment for bilateral stroke. . He denies any choking sensation, cough, fever, chills. History she has improved and now comprehensible. He denies any worsening right upper and lower extremity weakness and able to feed himself without assistance Objective: Physical examination: Vital signs: See below General: Agitated, irritable, no use of respiratory accessory muscles. , No cyanosis Slight right facial asymmetry with drooping HEENT: Pupils are equally round and reactive to light and accommodation. Extra muscles intact. No JVD, thyromegaly. No sclerae injection or conjunctival injection. Lungs: No stridor. Lungs are diminished with bilateral wheezing. Heart: S1 and S2 regular rate and rhythm. Abdomen: Soft, nontender, nondistended. Extremities: No pitting edema. Multiple tattoos on bilateral upper extremities and fingers. Neurologic: Pupils are equally round and reactive to light and accommodation, extraocular muscles are intact, tongue is deviated to the right, mild right facial drooping improved from yesterday. Speech is fluent. He has no slurring of speech or expressive aphasia. Motor function is diminished in the right upper and lower extremities at 4/5. Gait was not tested. Left upper and lower extremities 5/5. There is no sensory disturbance. Positive Babinski. LABORATORY DATA: See below IMAGING STUDIES: MRI of the brain 09/19/20: Small acute/subacute infarct left andreina, left cerebellum and right occipital lobe. MRA of the brain: Severe critical stenosis of the proximal mid basal artery, right posterior cerebral artery appears diminutive compared to the left, but the P1, P2 and proximal P3 segments are patent. MRA of the carotids: Left than 50% stenosis in the right internal carotid artery. CTA of the head: 75% plaquing of the left distal vertebral artery and mid basal artery. ASSESSMENT: This 60-year-old male with history of a 30 pack year smoking cigarettes, grade 1 left ventricular diastolic dysfunction, COPD on 3 liters home oxygen with chronic hypoxic respiratory failure, CAD, stenting, hypertension, asthma, questionable Parkinson's disease, left non-obstructive nephrolithiasis with chronic left hydronephrosis, a 3.2 cm infrarenal abdominal aortic aneurysm was in his usual state of health until yesterday morning when he woke up with right sided weakness, facial drooping and expressive aphasia with slurred speech. Patient was normal and last known to be normal neurologically at 9:30 p.m. Patient presented to the Emergency Room at 1:35 p.m., was found to have acute bilateral CVA in the right occipital, left pontine and cerebellum with 75% stenosis of the left distal vertebral artery and basal artery. Patient had been given aspirin, Plavix and Lipitor, kept on neuro checks every 4 hours with blood pressure maintained between 170-180, normal saline had been started. Current issues: Medical noncompliance Patient wants to leave AGAINST MEDICAL ADVICE because he can't drink coffee or drink water. He is currently in dysphagia diet with thickened liquids due to concerns of aspiration with recent bilateral CVA Patient's was contacted and has convinced him to stay for medical treatment Bilateral CVA involving the right occipital, left pontine, left cerebellar with 75% stenosis of the left distal vertebral artery and basal artery: Patient is currently maintained on antiplatelet dual therapy with aspirin and Plavix. Lipitor has been increased to 40 mg. DVT prophylaxis with Lovenox. Speech therapy has been consulted regarding possible aspiration. He is currently on a modified dysphagia diet with thickened liquids and a pured diet with no signs of active aspiration. He is continued on I.V. fluids to maintain systolic blood pressure 170-180 to allow for permissive hypertension and to improve cerebral perfusion. Dr. Russell has been consulted From neurology. Echocardiogram is still pending COPD exacerbation: Patient had been having trouble breathing for about a month with increasing wheezing at home., Status post IV Solu-Medrol with improvement Start tapering dose and continue with nebulizer, supplemental oxygen Hypertensive urgency: Patient has been kept on labetalol with systolic pressure to be held for less than 180 for permissive hypertension. History of CAD, [place]: Patient is currently on aspirin, Plavix, Lipitor, labetalol for blood pressure control. Coreg has been discontinued and KAYA inhibitor held due to permissive hypertension to keep systolic pressure 170-180. Chronic hypoxic respiratory failure on 3 liters of home oxygen: Patient is chronically on 3 liters and currently at baseline. History of chronic hydronephrosis with non-obstructive nephrolithiasis: Creatinine is normal. Incidental finding of 3.2 cm infrarenal abdominal aortic aneurysm: Patient is asymptomatic. We will titrate blood pressure medications for the next 24-48 hours. DVT prophylaxis: With Lovenox. Diet: Currently on a thickened liquid and pured diet due to possible aspiration. Swallow eval on Tuesday advance diet per speech therapy recommendations Disposition: Patient is awaiting echocardiogram report, ARU evaluation and further neurology recommendations. VS, I&O, 24H, Fishbone Vital Signs/I&O Vital Signs Date Time Temp Pulse Resp B/P (MAP) Pulse Ox O2 Delivery O2 Flow Rate FiO2 09/21/20 08:38 98.7 105 19 181/100 (127) 98 Nasal Cannula 3.0 l I&O- Last 24 Hours up to 6 AM 09/21/20 06:00 Intake Total 3900 ml Output Total 1450 ml Balance 2450 ml Laboratory Data 24H LABS Laboratory Tests 2 09/21/20 05:20: Nucleated Red Blood Cells % (auto) 0.0, Anion Gap 5L, Glomerular Filtration Rate > 60.0, Calcium Level 9.0, Magnesium Level 2.1 CBC/BMP Laboratory Tests 09/21/20 05:20 Microbiology Microbiology 09/19/20 Respiratory Virus Panel (PCR) ([facility]) - Final, Complete KELL HAIR MD Sep 21, 2020 09:32
[2020-09-21 11:41] VITALS: BP 144/88
[2020-09-21] MEDS ORDERED: LIDOCAINE 5% OINT 30GM TUBE TOP PRN (15:00)
[2020-09-21] MEDS ORDERED: LIDOCAINE 4% CREAM 5GM (LMX4) TOP PRN (15:13)
[2020-09-21] MEDS ORDERED: PERCOCET 5MG/325MG TAB PO ONE (15:30)
[2020-09-21 16:00] VITALS: BP 147/78
[2020-09-21] MEDS: PHENAZOPYRIDINE 100 MG TAB PO SCH (16:25)
[2020-09-21] MEDS ORDERED: NS 1,000 ML IV ONE (17:15)
[2020-09-21 20:00] VITALS: BP 158/82
[2020-09-21] MEDS: PANTOPRAZOLE 40MG VIAL (C9113 PER 1) IV SCH (20:39)
[2020-09-21] MEDS: ATORVASTATIN 20 MG TAB PO SCH (20:39)
[2020-09-21] MEDS ORDERED: traMADol 50 MG TAB PO PRN (22:30)
[2020-09-21] MEDS ORDERED: ACETAMINOPHEN TAB 650MG DOSE (2X325MG) PO PRN (22:30)
[2020-09-22] VITALS: BP 137/78
[2020-09-22] MEDS: PHENAZOPYRIDINE 100 MG TAB PO SCH ×2 (00:22→09:19)
[2020-09-22] MEDS: methylPREDNISolone 40MG 1ML VIAL IV SCH ×2 (00:22→11:17)
[2020-09-22] MEDS: LEVALBUTEROL 1.25 MG/0.5 ML CONCENTRATE NEB INH SCH ×3 (03:06→12:31)
[2020-09-22] MEDS: NS 1,000 ML IV SCH (03:48)
[2020-09-22 04:00] VITALS: BP 134/78
[2020-09-22 07:33] VITALS: BP 154/97
[2020-09-22] MEDS: TIOTROPIUM INHALER/CAPSULE (SPIRIVA) INH SCH (07:50)
--- NOTE | 2020-09-22 08:56 | DS.PDOC ---
Discharge Summary General Date of Admission Sep 19, 2020 at 15:47 Date of Discharge 09/22/20 Discharge Summary [employer] ENGINEER : NEUROLOGY-DR MIRZA DISCHARGE DIAGNOSES: Acute to subacute Bilateral CVA involving the right occipital, left pontine, left cerebellar with 75% stenosis of the left distal vertebral artery and basal artery Hypertensive urgency COPD exacerbation Chronic hypoxic respiratory failure and 3 L home oxygen History of tobacco abuse History of CAD, [place] Medical noncompliance Chronic bilateral hydronephrosis with normal creatinine Chronic nonobstructing kidney stones Incidental finding of 3.2 cm infrarenal abdominal aortic aneurysm Penile pain DISCHARGE MEDICATIONS: SEE BELOW DISCHARGE INSTRUCTIONS: NEUROLOGY FOLLOW-UP WITHIN 5 DAYS OF DISCHARGE. PRIMARY CARE PHYSICIAN APPOINTMENT WITHIN 1 WEEK HOSPITAL COURSE: This 60-year-old male with history of a 30 pack year smoking cigarettes, grade 1 left ventricular diastolic dysfunction, COPD on 3 liters home oxygen with chronic hypoxic respiratory failure, CAD, stenting, hypertension, asthma, questionable Parkinson's disease, left non-obstructive nephrolithiasis with chronic left hydronephrosis, a 3.2 cm infrarenal abdominal aortic aneurysm was in his usual state of health until yesterday morning when he woke up with right sided weakness, facial drooping and expressive aphasia with slurred speech. Patient was normal and last known to be normal neurologically at 9:30 p.m. Patient presented to the Emergency Room at 1:35 p.m., was found to have acute bilateral CVA in the right occipital, left pontine and cerebellum with 75% stenosis of the left distal vertebral artery and basal artery. Patient had been given aspirin, Plavix and Lipitor, kept on neuro checks every 4 hours with blood pressure maintained between 170-180, normal saline had been started. Current issues: Medical noncompliance Patient wanted to leave AGAINST MEDICAL ADVICE om 09/21/20 because he couldn't d rink coffee or drink water. He is currently in dysphagia diet with thickened liquids due to concerns of aspiration with recent bilateral CVA Patient's was contacted and has convinced him to stay for medical treatment Bilateral CVA involving the right occipital, left pontine, left cerebellar with 75% stenosis of the left distal vertebral artery and basal artery: Patient is currently maintained on antiplatelet dual therapy with aspirin and Plavix. Lipitor has been increased to 40 mg. DVT prophylaxis with Lovenox. Speech therapy has been consulted regarding possible aspiration. He is currently on a modified dysphagia diet with thickened liquids and a pured diet with no signs of active aspiration. He wascontinued on I.V. fluids to maintain systolic blood pressure 170-180 to allow for permissive hypertension and to improve cerebral perfusion. Dr. Mirza has been consulted From neurology. Echocardiogram is still pending. may be changed back to home meds with holding parameters after 48 hrs. COPD exacerbation: Patient had been having trouble breathing for about a month with increasing wheezing at home., Status post IV Solu-Medrol with improvement prednisone tapering dose and continue with nebulizer, supplemental oxygen Hypertensive urgency: Patient has been kept on labetalol with systolic pressure to be held for less than 180 for permissive hypertension.resumed on home meds after 48hrs with holding parameters. History of CAD, [place]: Patient is currently on aspirin, Plavix, Lipitor, labetalol for blood pressure control. Coreg has been discontinued and KAYA inhibitor held due to permissive hypertension to keep systolic pressure 170-180. Chronic hypoxic respiratory failure on 3 liters of home oxygen: Patient is chronically on 3 liters and currently at baseline. History of chronic hydronephrosis with non-obstructive nephrolithiasis: Creatinine is normal. Incidental finding of 3.2 cm infrarenal abdominal aortic aneurysm: Patient is asymptomatic. We TITRATED blood pressure medications DVT prophylaxis: With Lovenox. Diet: Currently on a thickened liquid and pured diet due to possible aspiration. Swallow eval on Tuesday advance diet per speech therapy recommendations Penile pain GC/chlamydia penile culture sent. DISCHARGE PHYSICAL EXAMINATION: Vital signs: See below General: aaox3 no use of respiratory accessory muscles. , No cyanosis Slight right facial asymmetry with drooping HEENT: Pupils are equally round and reactive to light and accommodation. Extra muscles intact. No JVD, thyromegaly. No sclerae injection or conjunctival injection. Lungs: No stridor. Lungs are diminished with bilateral wheezing. Heart: S1 and S2 regular rate and rhythm. Abdomen: Soft, nontender, nondistended. Extremities: No pitting edema. Multiple tattoos on bilateral upper extremities and fingers. Neurologic: Pupils are equally round and reactive to light and accommodation, extraocular muscles are intact, tongue is deviated to the right, mild right facial drooping improved from yesterday. Speech is fluent. He has no slurring of speech or expressive aphasia. Motor function is diminished in the right upper and lower extremities at 4/5. Gait was not tested. Left upper and lower extremities 5/5. There is no sensory disturbance. Positive Babinski. DISCHARGE LABORATORY DATA: See below MICROBIOLOGY: SEE BELOW ECHOCARDIOGRAM: PENDING IMAGING STUDIES: MRI of the brain 09/19/20: Small acute/subacute infarct left andreina, left cerebellum and right occipital lobe. MRA of the brain: Severe critical stenosis of the proximal mid basal artery, right posterior cerebral artery appears diminutive compared to the left, but the P1, P2 and proximal P3 segments are patent. MRA of the carotids: Left than 50% stenosis in the right internal carotid artery. CTA of the head: 75% plaquing of the left distal vertebral artery and mid basal artery. TIME SPENT ON DISCHARGE: 30 MIN Vital Signs/I&Os Vital Signs Date Time Temp Pulse Resp B/P (MAP) Pulse Ox O2 Delivery O2 Flow Rate FiO2 09/22/20 07:33 97.8 95 18 154/97 (116) 94 Nasal Cannula 3.0 I&O- Last 24 Hours up to 6 AM 09/22/20 06:00 Intake Total 3690 ml Output Total 2475 ml Balance 1215 ml Laboratory Data Labs 24H Laboratory Tests 2 09/21/20 17:10: Urine Color [place], Urine Appearance CLEAR, Urine pH 5.0, Urine Specific [place] 1.029, Urine Protein 1+H, Urine Glucose (UA) 1+H, Urine Ketones NEGATIVE, Urine Blood NEGATIVE, Urine Nitrite NEGATIVE, Urine Bilirubin NEGATIVE, Urine Urobilinogen 0.2, Urine Leukocyte Esterase NEGATIVE, Urine WBC (Auto) 1, Urine RBC (Auto) 3, Urine Hyaline Casts (Auto) 1, Urine Bacteria (Auto) NEGATIVE, Urine Squamous Epithelial Cells 0, Urine Mucus (Auto) SMALL, Urine Sperm (Auto) 09/22/20 08:02: CBC/BMP Microbiology Microbiology 09/21/20 Chlamydia trachomatis Culture, Received Pending 09/21/20 Gram Stain, Received Pending 09/21/20 Genital Culture, Received Pending 09/21/20 Neisseria gonorrhoeae Culture, Received Pending 09/19/20 Respiratory Virus Panel (PCR) ([facility]) - Final, Complete Discharge Medications Scheduled Albuterol Sulfate (Proventil Hfa) 6.7 Gm Hfa.aer.ad, 2 PUFF INH Q4H for wheezing Aspirin (Aspirin EC) 81 Mg Tablet.dr, 81 MG PO DAILY Atorvastatin Calcium (Atorvastatin Calcium) 20 Mg Tablet, 20 MG PO QHS, (Reported) Atorvastatin Calcium (Atorvastatin Calcium) 20 Mg Tablet, 40 MG PO QHS Clopidogrel Bisulfate (Clopidogrel) 75 Mg Tablet, 75 MG PO DAILY Fluorometholone (Fluorometholone) 0.1% 5ML Drops.susp, 1 DROP OS TID, (Reported) Fluticasone/Umeclidin/Vilanter (Trelegy Ellipta 100-62.5-25) 1 Each Blst.w.dev, 1 PUFF INH DAILY, (Reported) Glycerin/Propylene Glycol (Artificial Tears Drops) 15 Ml Drops, 1 DROP OU TID, (Reported) Omeprazole Magnesium (Prilosec Otc) 20 Mg Tablet.dr, 20 MG PO DAILY Prednisone (Prednisone) 10 Mg Tablet, 10 MG PO TAPER Take 4 tabs daily x 3 days, then 3 tabs daily x 3 days, then 2 tabs daily x 3 days, then 1 tab daily x 3 days and stop Tiotropium [place] (Spiriva) 18 Mcg Cap.w.dev, 18 MCG INH DAILY Miscellaneous Medications [Patient Comment] , (Reported) PATIENT STATES HE HAS NOT TAKEN ANY MEDICATIONS IN 2-3 MONTHS. MED LIST OBTAINED FROM [facility] PILL BOTTLES BROUGHT IN BY PATIENT, MEDS LAST FILLED 06/2020 Allergies Coded Allergies: fentanyl (Verified Allergy, Unknown, 06/11/20) KELL HAIR MD Sep 22, 2020 08:55
[2020-09-22 08:57] LABS: MEAN CORPUSCULAR HGB CONC 30.8 g/dl (32.0-36.5); MEAN CORPUSCULAR VOLUME 100.8 fl (80.0-96.0); PLATELET COUNT, AUTOMATED 215 10^3/uL (150-450); RED BLOOD COUNT 3.87 10^6/uL (4.30-6.10); WHITE BLOOD COUNT 15.9 10^3/uL (4.0-10.0)
[2020-09-22] MEDS ORDERED: SELF1KIT MC (08:58)
[2020-09-22 09:03] LABS: BLOOD UREA NITROGEN 14 MG/DL (7-18); CALCIUM LEVEL 8.9 MG/DL (8.5-10.1); CARBON DIOXIDE LEVEL 26 MEQ/L (21-32); CHLORIDE LEVEL 108 MEQ/L (98-107); CREATININE FOR GFR 0.84 MG/DL (0.70-1.30); GLOMERULAR FILTRATION RATE > 60.0 (>56); GLUCOSE, FASTING 192 MG/DL (70-100); POTASSIUM SERUM 4.2 MEQ/L (3.5-5.1); SODIUM LEVEL 142 MEQ/L (136-145)
[2020-09-22] MEDS: FOLIC ACID 1 MG TAB PO SCH (09:19)
[2020-09-22] MEDS: ENOXAPARIN 40MG/0.4ML SYRINGE (J1650 PER 10MG) SC SCH (09:19)
[2020-09-22] MEDS: CLOPIDOGREL 75 MG TAB PO SCH (09:19)
[2020-09-22] MEDS: ASPIRIN 81 MG ENTERIC TAB PO SCH (09:19)
[2020-09-22] MEDS: POLYVINYL ALCOHOL OPHTH SOLN 15 ML(LIQUITEARS) OU SCH ×2 (09:20→12:56)
[2020-09-22] MEDS: FLUOROMETHOLONE 0.1% OPHTH SUSP 5 ML BTL OS SCH (09:20)
--- NOTE | 2020-09-22 09:25 | CR ---
CONSULTATION DATE: 09/20/2020 REASON FOR CONSULTATION: Slurred speech and right-sided weakness. HISTORY OF PRESENT ILLNESS: The patient is a 60-year-old man with history of 30 pack year smoking history, quit many years ago, using medical marijuana and also smoking spike, grade 1 diastolic heart function, chronic obstructive pulmonary disease (COPD), coronary artery disease, who was at his baseline state of health yesterday. He went to sleep around 9:30 p.m. and woke up around 4 a.m. and noted right-sided weakness. He went back to bed and woke up for breakfast and noted slurred speech and right-sided weakness and he came to [facility] where he was noted to have right-sided facial, arm, leg weakness with slurred speech. He came to the emergency department in the afternoon. The patient was given aspirin, Plavix and atorvastatin. The patient states that he was taking aspirin until a few months ago. He was unable to pay his [facility] to [facility] due to COVID 19 and he did not receive his check. So, the landlord locked his home and he was unable to get his medications. He was living in [facility] at that time. He has since moved to [facility]. The patient says that he has pain in his left shoulder, right knee and headache over the last few days. He also feels shortness of breath for the last one month. He denies seizures, dysphagia, diplopia, urinary incontinence, falls, loss of consciousness or head injuries. PAST MEDICAL HISTORY: 1. Chronic obstructive pulmonary disease (COPD). 2. Coronary artery disease, status post stenting. 3. Hypertension. 4. Asthma. 5. Kidney stone. 6. 3.2 cm abdominal aortic aneurysm. 7. Grade 1 diastolic cardiac dysfunction. 8. Substance abuse. SOCIAL HISTORY: He lives with his girlfriend. He denies alcohol. He quit smoking many years ago. He admits to using spike and occasional marijuana. FAMILY HISTORY: Unremarkable and noncontributory. REVIEW OF SYSTEMS: All systems are reviewed and found to be noncontributory except as mentioned in history of present illness. ALLERGIES: FENTANYL. HOME MEDICATIONS: 1. atorvastatin 20 mg by mouth daily 2. clonidine 0.2 mg by mouth twice a day 3. fluoxetine 20 mg, 3 by mouth daily. 4. Trelegy Ellipta one puff inhalation daily. 5. Folic acid 1 mg by mouth daily 6. Lasix 40 mg by mouth twice a day. 7. lisinopril 20 mg by mouth daily 8. metformin 750 mg by mouth daily 9. Protonix 40 mg by mouth daily 10.quetiapine 50 mg by mouth every night at bedtime. 11.Daliresp 500 mg by mouth daily 12.trazodone 100 mg by mouth every night at bedtime. 13.Ativan 1 mg by mouth q 8 hours as needed PHYSICAL EXAMINATION: Temperature 98.1, blood pressure 170/110, respiratory rate 20, pulse 125. Heart: Regular rate and rhythm with bundle branch block pattern. Lungs: Clear to auscultation. Telemetry monitoring showed regular sinus rhythm with bundle branch block pattern. Abdomen: Soft, nontender, non-distended. No pedal edema. No musculoskeletal abnormalities. No rash. No signs of meningeal irritation. The patient is awake, alert, oriented to place, person and time. Normal speech, comprehension and repetition. Extraocular muscles are intact. No facial weakness. Tongue and uvula are midline. 5/5 strength in all four extremities. Deep tendon pulses are 1+ throughout. Normal sensation bilaterally. No dysmetria. Gait was not tested as the patient was getting nebulizations for his chronic obstructive pulmonary disease (COPD). DIAGNOSTIC STUDIES: MRI scan of brain was reviewed and showed small left pontine, left cerebellar and right occipital acute ischemic strokes. CT scan of head last night showed right occipital ischemic stroke. CT angiogram and MRA head and neck showed high grade stenosis of mid basilar artery and 75% of left vertebral artery. Carotid arteries are unremarkable on both sides. All of his scans were reviewed. Hemoglobin was 12.7, platelet count 253, white count 9.4 with normal metabolic profile. LDL was 11.7, total cholesterol 198, HDL 55. ASSESSMENT: 1. Right occipital, left pontine and cerebellar acute ischemic strokes. 2. Severe basilar artery stenosis with 75% left vertebral artery stenosis. 3. Dyslipidemia. 4. History of coronary artery disease, grade I diastolic cardiac dysfunction. 5. Chronic obstructive pulmonary disease (COPD). 6. Marijuana and spike abuse. PLAN: 1. Keep systolic blood pressure below 180 and diastolic blood pressure 110. The patient had episode of worsening of right-sided symptoms where his systolic blood pressure was in 150s last night. I recommended urgent CT scan of head and 500 ml normal saline bolus and his symptoms improved. 2. Increase Lipitor to 80 mg by mouth daily 3. Aspirin 81 mg by mouth daily and Plavix 75 mg by mouth daily 4. He should discontinue drug use. 5. Continue telemetry monitoring and perform echocardiogram. 6. I emphasized compliance with his medications, especially statins and antiplatelet medications. 7. Physical therapy MTDD
--- NOTE | 2020-09-22 09:39 | ECHO ---
DATE OF PROCEDURE: 09/21/2020 Age: 60 Gender: Male Height: 185 cm Weight: 91 kg REFERRING PHYSICIAN: Argenis Mojica MD INDICATION: Stroke. MEASUREMENTS: IVS 1.2 cm LV 6.4 cm LVPW 1.3 cm LA 5.0 cm Aorta 3.7 cm RV 4.1 cm LV systolic 4.4 cm IVC 1.2 cm DOPPLER MEASUREMENT Mitral E wave velocity 70 Mitral A wave 129 E prime septal 4.7 E prime lateral 6.7 FINDINGS: This study is of acceptable technical quality with somewhat limited visualization. Underlying sinus rhythm with ventricular rate at 100 beats per minute. Left ventricle is dilated. Mild left ventricular hypertrophy is noted. Distal segments of the anterolateral and inferior wall appear to be hypokinetic, as well as apex. Remaining LV segments have preserved contractility. Overall, I estimate mildly reduced left ventricular systolic function with EF estimated around 50% to 55%. Right ventricle does not appear to be dilated or hypokinetic. Left atrium is severely enlarged. Right atrium was poorly visualized, but grossly appears normal. Aortic valve is mildly sclerotic, but mobility is preserved. There are normal appearing mitral, tricuspid, and pulmonic valves. No pericardial effusion is present. Inferior vena cava is normal size and appropriate collapses with inspiration indicative of likely normal central venous pressure. The aortic root and abdominal aorta appear normal. Aortic arch was not well seen. Doppler interrogation reveals competent aortic valve. There is trace mitral insufficiency. Tricuspid and pulmonic valves are also functionally competent. Mitral inflow pattern and tissue Doppler imaging of the mitral annulus revealed grade 1 diastolic dysfunction. CONCLUSIONS: 1. Study is of fair technical quality, underlying sinus rhythm with ventricular rate around 100 beats per minute. 2. Dilated left ventricle with mild left ventricular hypertrophy, apical wall motion abnormality, and overall estimated EF around 50% to 55%. Grade 1 diastolic dysfunction. 3. No significant valvular disease. 4. Likely normal central venous pressure. 5. Unable to estimate pulmonary artery pressure. COMMENTS: Compared to echocardiogram report from 09/11/2019, there is probably no change accounting for technical difference in the study. [facility]
[2020-09-22] MEDS ORDERED: ATOR40TA75 PO (11:37)
[2020-09-22] MEDS ORDERED: PROT1TAB2 PO (11:37)
[2020-09-22] MEDS ORDERED: PRED10TA2 PO (11:37)
[2020-09-22] MEDS ORDERED: PLAV1TAB2 PO (11:37)
[2020-09-22] MEDS ORDERED: PROV108A INH (11:37)
[2020-09-22] MEDS ORDERED: ASPI81CH33 PO (11:37)
[2020-09-22] MEDS ORDERED: TIOT18INH INH (11:37)
[2020-09-22 12:00] VITALS: BP 150/83
== END 2020-09-22 13:23 | disposition home or self-care (01) | DRG 45 ==
LOC: M ED 13:45 → EDBD 13:45 → M ED INP 15:47 → M PCU 21:17
PROVIDERS: ADMIT General Practice; ATTEND General Practice
DX: I63.531 Cerebral infarction due to unspecified occlusion or stenosis of right posterior cerebral artery (principal); J96.11 Chronic respiratory failure with hypoxia; J44.1 Chronic obstructive pulmonary disease with (acute) exacerbation; R47.01 Aphasia; N13.30 Unspecified hydronephrosis; G81.91 Hemiplegia, unspecified affecting right dominant side; Z99.81 Dependence on supplemental oxygen; R13.10 Dysphagia, unspecified; I63.542 Cerebral infarction due to unspecified occlusion or stenosis of left cerebellar artery; I65.02 Occlusion and stenosis of left vertebral artery; I25.10 Atherosclerotic heart disease of native coronary artery without angina pectoris; I65.1 Occlusion and stenosis of basilar artery; I10 Essential (primary) hypertension; R29.810 Facial weakness; N48.89 Other specified disorders of penis; I16.0 Hypertensive urgency; I37.2 Nonrheumatic pulmonary valve stenosis with insufficiency; J45.909 Unspecified asthma, uncomplicated; I71.4 Abdominal aortic aneurysm, without rupture; N20.0 Calculus of kidney; Z90.49 Acquired absence of other specified parts of digestive tract; Z95.5 Presence of coronary angioplasty implant and graft; Z79.82 Long term (current) use of aspirin; Z79.02 Long term (current) use of antithrombotics/antiplatelets; Z79.84 Long term (current) use of oral hypoglycemic drugs; Z79.899 Other long term (current) drug therapy; Z87.891 Personal history of nicotine dependence

== ENCOUNTER → 2020-10-06 | Outpatient (REF) | payer OTHER, MEDICAID ==
[~2020-10-06] MED LIST changes: +ARTIDRO OU; +ASPI-569 PO; +ASPI81CH33 PO; +ATIV1TAB7 PO; +ATOR1TAB21 PO; +ATOR40TA75 PO; +CLON0.2T PO; +CLOP75TA2 PO; +FLUO1OPD OS; +PLAV1TAB2 PO; +PRED10TA2 PO; +PRIL20TA2 PO; +PROT1TAB2 PO; +PROV108A INH; +SELF1KIT MC; +SPIR1CAP INH; +TIOT18INH INH
[2020-10-06 17:34] LABS: HEPATITIS A ANTIBODY IGM NEGATIVE (NEGATIVE); HEPATITIS B CORE ANTIBODY IGM NEGATIVE (NEGATIVE); HEPATITIS B SURFACE ANTIGEN NEGATIVE (NEGATIVE); HIV 1&2 SCREEN CENTAUR NEGATIVE (NEGATIVE)
[2020-10-06 17:40] LABS: HEPATITIS C VIRUS ABY INDEX > 11.0 INDEX (<0.8)
== END ==
LOC: M SFHCCLAY 11:22
PROVIDERS: ATTEND Family Medicine
DX: Z86.19 Personal history of other infectious and parasitic diseases (principal); Z11.4 Encounter for screening for human immunodeficiency virus [HIV]

== ENCOUNTER → 2020-11-04 | Outpatient (REF) | payer OTHER ==
[2020-11-04 18:30] LABS: BLOOD UREA NITROGEN 19 MG/DL (7-18); CALCIUM LEVEL 9.4 MG/DL (8.5-10.1); CARBON DIOXIDE LEVEL 32 MEQ/L (21-32); CHLORIDE LEVEL 101 MEQ/L (98-107); CREATININE FOR GFR 0.89 MG/DL (0.70-1.30); GLOMERULAR FILTRATION RATE > 60.0 (>56); GLUCOSE, FASTING 113 MG/DL (70-100); NT-PRO BNP 1645 PG/ML (<125); POTASSIUM SERUM 4.5 MEQ/L (3.5-5.1); SODIUM LEVEL 139 MEQ/L (136-145)
== END ==
LOC: M SFHCCLAY 10:24
PROVIDERS: ATTEND Family Medicine
DX: I11.0 Hypertensive heart disease with heart failure (principal); R60.0 Localized edema

== ENCOUNTER → 2020-12-09 | Outpatient (CLI) | payer OTHER ==
[~2020-12-09] MED LIST changes: +LISI10TA22 PO; +SPIR-10 PO
== END ==
LOC: M LABSMTC 13:42
PROVIDERS: ATTEND Anesthesiology
DX: Z01.812 Encounter for preprocedural laboratory examination (principal); Z20.822 Contact with and (suspected) exposure to COVID-19

== ENCOUNTER 2020-12-12 13:30 | Day surgery (SDC) | payer OTHER ==
[~2020-12-12] VITALS: Ht 188 cm; Wt 111.0 kg
[~2020-12-12 13:30] MED LIST changes: +LR 1,000 ML IV ONE; +ceFAZolin SOD 2 GM in IV 1 EA IV ONE
[2020-12-12] MEDS ORDERED: ONDANSETRON 4MG/2ML VIAL As Ordered ONE (13:46)
[2020-12-12] MEDS ORDERED: propofoL 200 MG/20 ML VIAL As Ordered ONE (13:46)
[2020-12-12] MEDS ORDERED: dexameTHASONE 4 MG/ML 1ML VIAL (J1100 PER 1MG) As Ordered ONE (13:47)
[2020-12-12] MEDS ORDERED: LIDOCAINE 2% 100MG/5ML SDV (FOR ANES.) As Ordered ONE ×2 (13:49→14:36)
[2020-12-12] MEDS ORDERED: LIDOCAINE 1% SDV 30ML VIAL As Ordered ONE (13:59)
[2020-12-12] MEDS ORDERED: MIDAZOLAM INJ 2MG/2ML VIAL (J2250 PER 1MG) As Ordered ONE (14:03)
[2020-12-12 15:50] VITALS: BP 137/93
--- NOTE | 2020-12-13 11:05 | RO ---
OPERATIVE NOTE DATE OF OPERATION: 12/12/2020 PREOPERATIVE DIAGNOSIS: Cryptogenic stroke. POSTOPERATIVE DIAGNOSIS: Cryptogenic stroke. FINDINGS: Cryptogenic stroke. PROCEDURE PERFORMED: Implantation of subcutaneous cardiac rhythm monitor (Medtronic). SURGEON: Charnajit Mendoza MD RADIO ASSEMBLER: None. ANESTHESIA: Lidocaine 1% local/monitored anesthesia care. SPECIMEN: Medtronic LINQ which was provided by [facility] which had failed to communicate [facility] off to [facility] for analysis and I was given new second generation loop recorder implant. ESTIMATED BLOOD LOSS: Less than 2 mL. No blood products given. DRAINS: None. COMPLICATIONS: None. DESCRIPTION OF PROCEDURE: The patient was prepped and draped over the sternum and left anterior chest. Lidocaine 1% was used for local anesthetic. An incision approximately 1 cm in length was made with [id number] through the skin at the left 4th interspace about 1 inch lateral to the left parasternal border. I started with the first generation Medtronic LINQ. This device was placed subcutaneous at approximately 45 degree angle in the horizontal plane parallel to the anterior chest in caudal-left lateral direction. After inserting this several attempts were made to connect the device to the contract programmer wirelessly with blue tooth and these were unsuccessful. Next, the Medtronic rep tried to communicate with this device using the programming head of the Medtronic contract programmer and this was not successful either. Both myself and the Medtronic rep suspected that we had a faulty loop recorder. This loop recorder was then removed by Dr. Mendoza and was given to the Medtr[employer] rep to return to [facility] for analysis. [facility] then gave me a new Medtronic loop recorder to implant. This was initially implanted in the same 45 degree direction and the signal strength was not strong enough. I then removed the loop recorder and repositioned it, placing it in horizontal left lateral direction. This provided a good signal. The incision was then approximated temporarily with 4-0 Biosyn suture. Three layers of Dermabond were applied and the Biosyn suture was then pulled through the incision line and removed entirely. The final loop recorder implanted was Medtronic LINQII, model LNQ22 with serial #[id number]. The initial R wave measured 0.22 millivolts. The patient tolerated the procedure well without any immediate complications.
== END 2020-12-12 15:50 | disposition home or self-care (01) ==
LOC: M SDC 13:30
PROVIDERS: ATTEND Internal Medicine Cardiovascular Disease
DX: I63.9 Cerebral infarction, unspecified (principal); I10 Essential (primary) hypertension; I25.10 Atherosclerotic heart disease of native coronary artery without angina pectoris; Z98.61 Coronary angioplasty status; E11.9 Type 2 diabetes mellitus without complications; Z79.02 Long term (current) use of antithrombotics/antiplatelets; Z79.899 Other long term (current) drug therapy; I71.4 Abdominal aortic aneurysm, without rupture; Z87.891 Personal history of nicotine dependence; J44.9 Chronic obstructive pulmonary disease, unspecified; Z99.81 Dependence on supplemental oxygen; Z86.73 Personal history of transient ischemic attack (TIA), and cerebral infarction without residual deficits; Z88.5 Allergy status to narcotic agent
CPT/HCPCS: 33285; C1764; J0690; J1100; J2250; J2405

== ENCOUNTER → 2020-12-22 | Outpatient (REF) | payer OTHER ==
[~2020-12-22] MED LIST changes: -LR 1,000 ML IV ONE; -ceFAZolin SOD 2 GM in IV 1 EA IV ONE
[2020-12-22 13:06] LABS: ALBUMIN 3.9 GM/DL (3.2-5.2); BLOOD UREA NITROGEN 27 MG/DL (7-18); CALCIUM LEVEL 9.2 MG/DL (8.5-10.1); CARBON DIOXIDE LEVEL 32 MEQ/L (21-32); CHLORIDE LEVEL 103 MEQ/L (98-107); CREATININE FOR GFR 0.96 MG/DL (0.70-1.30); GLOMERULAR FILTRATION RATE > 60.0 (>56); GLUCOSE, FASTING 133 MG/DL (70-100); NT-PRO BNP 1238 PG/ML (<125); PHOSPHORUS LEVEL 3.1 MG/DL (2.5-4.9); POTASSIUM SERUM 4.7 MEQ/L (3.5-5.1); SODIUM LEVEL 138 MEQ/L (136-145)
== END ==
LOC: M LABDRAWC 11:30
PROVIDERS: ATTEND Internal Medicine Cardiovascular Disease
DX: I50.32 Chronic diastolic (congestive) heart failure (principal)

== ENCOUNTER 2021-01-09 22:18 | Inpatient (IN) | payer OTHER ==
[~2021-01-09] VITALS: Ht 188 cm; Wt 122.2 kg
[2021-01-09] MEDS ORDERED: FURO20TA2 PO (22:26)
[2021-01-09 22:41] LABS: HEMOGLOBIN 10.8 g/dl (13.5-17.5); MEAN CORPUSCULAR HGB CONC 30.9 g/dl (32.0-36.5); MEAN CORPUSCULAR VOLUME 100.6 fl (80.0-96.0); PLATELET COUNT, AUTOMATED 192 10^3/uL (150-450); RED BLOOD COUNT 3.48 10^6/uL (4.30-6.10); WHITE BLOOD COUNT 9.3 10^3/uL (4.0-10.0)
[2021-01-09] MEDS ORDERED: METOPROLOL TART 25 MG TABLET PO ONE (22:50)
[2021-01-09] MEDS: METOPROLOL 5 MG/5 ML VIAL IV SCH ×3 (22:51→23:05)
[2021-01-09 22:59] LABS: ATYPICAL LYMPH 2 % (0-5); BASOPHILS 1 % (0-1); EOSINOPHILS 6 % (0-3); LYMPHOCYTES 30 % (16-44); MONOCYTES 5 % (0-5); NEUTROPHILS 56 % (28-66); PLATELET ESTIMATE NORMAL (NORMAL)
[2021-01-09 23:00] LABS: POLYCHROMASIA 1+
[2021-01-09 23:14] LABS: ALBUMIN 3.4 GM/DL (3.2-5.2); ALT/SGPT 19 U/L (12-78); BILIRUBIN,DIRECT 0.2 MG/DL (0.0-0.2); BILIRUBIN,TOTAL 0.3 MG/DL (0.2-1.0); BLOOD UREA NITROGEN 25 MG/DL (7-18); CALCIUM LEVEL 8.7 MG/DL (8.5-10.1); CARBON DIOXIDE LEVEL 29 MEQ/L (21-32); CHLORIDE LEVEL 107 MEQ/L (98-107); CK-MB VALUE MASS 1.3 NG/ML (<3.6); CPK CREATINE PHOSPHOKINASE 88 U/L (39-308); CREATININE FOR GFR 1.22 MG/DL (0.70-1.30); GLOMERULAR FILTRATION RATE > 60.0 (>56); GLUCOSE, FASTING 145 MG/DL (70-100); MB/CK RELATIVE INDEX 1.48 (< OR =4); NT-PRO BNP 4201 PG/ML (<125); POTASSIUM SERUM 5.1 MEQ/L (3.5-5.1); SODIUM LEVEL 141 MEQ/L (136-145); TOTAL PROTEIN 6.8 GM/DL (6.4-8.2); TROPONIN I 0.04 NG/ML (< 0.10)
[2021-01-10] VITALS (16 sets, daily range): BP systolic 107–147; BP diastolic 63–96; O2SAT 94–97
--- NOTE | 2021-01-10 00:51 | REPVR ---
PROCEDURE INFORMATION: Exam: XR Chest Exam date and time: 01/09/2021 10:53 PM Age: 60 years old Clinical indication: Other: Dyspnea/cough TECHNIQUE: Imaging protocol: XR of the chest. Views: 1 view. COMPARISON: [facility] PORTABLE CHEST X-RAY 09/19/2020 2:27 PM FINDINGS: Tubes, catheters and devices: Probable loop recorder over the heart. Lungs: No focal interval infiltrates. Pleural spaces: Bilateral pleural effusions which are new since the prior study. Heart/Mediastinum: Borderline cardiomegaly which is probably similar to the prior study in view lordotic projection. Bones/joints: Unremarkable. IMPRESSION: 1. New small bilateral pleural effusions since 09/19/2020, left greater than right which may reflect early congestive failure or fluid overload. 2. Probable loop recorder since the prior study. 3. Otherwise stable chest. Electronically signed by: Quirino Brasher On 01/10/2021 00:51:32 AM
[2021-01-10] MEDS ORDERED: FUROSEMIDE 40MG/4ML VIAL (J1940) IV ONE (01:10)
[2021-01-10] MEDS ORDERED: SPIR1CAP INH (01:15)
[2021-01-10] MEDS ORDERED: CLOP75TA2 PO (01:15)
[2021-01-10] MEDS ORDERED: ATOR40TA75 PO (01:15)
[2021-01-10] MEDS ORDERED: PANT-23 PO (01:15)
[2021-01-10] MEDS ORDERED: ECOT81TA5 PO (01:16)
[2021-01-10] MEDS ORDERED: D5W/0.9% SODIUM CHLORIDE 1,000 ML IV SCH (01:20)
[2021-01-10] MEDS ORDERED: MOM 30ML SUSPENSION UDC PO PRN (01:20)
[2021-01-10] MEDS ORDERED: MAALOX 30 ML SUSP *UDC PO PRN (01:20)
[2021-01-10] MEDS ORDERED: ACETAMINOPHEN TAB 650MG DOSE (2X325MG) PO PRN (01:20)
--- NOTE | 2021-01-10 01:41 | HPEPDOC ---
[facility] Medical History & Physical Date of Admission Jan 10, 2021 Date of Service: Jan 10, 2021 Primary Care Physician: LOLA MILLAN DO Attending Physician: MAX DANG MD History and Physical TIME OF SERVICE: 144am CHIEF COMPLAINT: dyspnea HISTORY OF PRESENT ILLNESS: had been feeling short of breath for about 24 H prior to arrival in the ER; he could not identify any aggravating factors. His dyspnea didnt improve despite using his hand held inhalers 3 times a day and nebs 3 times a day. He has also been having palpitations that are noticeable after using his inhalers, a dry cough and the sensation that there is phlegm trapped in his chest. He denied having chest pain, denied having bilateral lower extremity edema, denied missing any doses of his medications, and denied eating salty foods or eating out at restaurants. He admits to drinking more fluids lately because of the hot weather. He has gained about 10 to 15lbs over the last 3 or 4 days. REVIEW OF SYSTEMS: 12-point review of systems negative except as listed in HPI PAST MEDICAL/ SURGICAL HISTORY: chronic HFpEF (50%), COPD w chronic O2 dependent respiratory failure, CAD w placement of 2 stents, Chronic right occipital, left pontine, left cerebellar CVAs w with 75% stenosis of the left distal vertebral and basal arteries, Essential HTN, Incidental3.2 cm infrarenal abdominal aortic aneurysm, Class 1 obesity, CHRISTINA, Nephrolithiasis, Bipolar disorder ?, appendectomy, loop recorder SOCIAL HISTORY: He is a former smoker, doesnt drink alcohol and lives with his FAMILY HISTORY: DM, HTN, CAD, Melanoma ALLERGIES: Please see below. HOME MEDICATIONS: Please see below. PHYSICAL EXAMINATION: Vital Signs Date Time Temp Pulse Resp B/P (MAP) Pulse Ox O2 Delivery O2 Flow Rate FiO2 01/09/21 22:23 98.6 150 20 129/89 99 NIPPV (BIPAP/CPAP) 01/09/21 23:25 40 01/10/21 00:15 2.0 GENERAL APPEARANCE: well nourished and developed / NAD HEENT: BIPAP mask is in place/ MM pink but dry CARDIOVASCULAR: HR irregularly irregular rate ranges from 90 to 130 / no BLE edema LUNGS: he is not using accessory muscles /he is not able to speak full sentences w/o taking a break to breath / he has inspiratory crackles with prominent expiratory wheezing ABDOMEN: contour obese MUSCULOSKELETAL: NCAT/ BRYANT x 4 extremities INTEGUMENT: he is not flushed, diaphoretic or pale NEUROLOGICAL: it is difficult to complete a neuro exam bc of the BIPAP mask / his speech is not dysarthric PSYCHIATRIC: A&OX 3 / able to understand and follow all commands LABORATORY DATA: 01/09/21 22:31 Neutrophils (%) (Auto) , Nucleated Red Blood Cells % (auto) 0.0, Neutrophils 56, Lymphocytes (Manual) 30, Monocytes (Manual) 5, Eosinophils (Manual) 6H, Basophils (Manual) 1, Atypical Lymphocytes 2, Polychromasia 1+, Basophilic Stippling 1+, Platelet Estimate NORMAL, Anion Gap 5L, Glomerular Filtration Rate > 60.0, Lactic Acid Level 1.3, Calcium Level 8.7, Total Bilirubin 0.3, Direct Bilirubin 0.2, Aspartate Amino Transf (AST/SGOT) 10, Alanine Aminotransferase (ALT/SGPT) 19, Alkaline Phosphatase 79, Total Creatine Kinase 88, Creatine Kinase MB 1.3, Creatine Kinase MB Relative Index 1.48, Troponin I 0.04, LQ-Kkg-V-Type Natriuretic Peptide 4201H, Total Protein 6.8, Albumin 3.4, Albumin/Globulin Ratio 1.0 01/09/21 22:39: POC pH (Misc Panel) 7.376, POC Base Excess (Misc Panel) 4.0H, POC Saturated Percent O2 (Misc) 99H, POC pO2 (Misc Panel) 160.0H, POC pCO2 (Misc Panel) 50.6H, POC HCO3 (Misc Panel) 29.7H, POC Total CO2 (Misc Panel) 31.0H IMAGING: Chest xray ..cardiomegaly.IMPRESSION: 1. New small bilateral pleural effusions since 09/19/2020, left greater than right which may reflect early congestive failure or fluid overload. 2. Probable loop recorder since the prior study. EK:1 A Flutter with a rate of 150 MICROBIOLOGY: respiratory panel neg ASSESSMENT: is a 60 yr old w chronic HFpEF, COPD, chronic O2 dependent respiratory failure, CAD, CVAs, HTN, obesity, CHRISTINA, & Bipolar disorder who will be admitted for rapid a flutter, acute HFpEF, and acute COPD. PLAN: 1 Atrial Flutter w RVR He has a loop recorder therefore he may have had this arrhythmia for a while; I suspect the RVR was triggered by frequent albuterol use. His HR improved to the 70s transiently after he received diltiazem and metoprolol, but at the time of my evaluation he was back in RVR. His CHADSVASc2 Score is 5 = 7.2% risk of stroke annually. Plan: admit to ICU / bc his MAP dropped to 70 after diltiazem & metoprolol I will switch to Digoxin for rate control / start Apixaban (his last Echo was negative for rheumatic heart disease) / I suspect the day time team may need to consult Cardio for Catheter ablation because this is the definitive treatment for typical atrial flutter 2 Acute HFpEF (50%) The fluid overload was likely triggered by drinking excessive fluids. Plan: despite the normal pH we c/w BIPAP which was started in the ER for pulmonary edema bc we do not know his CPAP settings / f/u repeat ABG / elevate head of bed to 45 degrees/ strict Is/OS, daily weights, fluid restriction to 2L or 67oz, salt restriction to 2G / Lasix 40mg IV Q8H with instructions to hold if his MAP is less than 70 3 Acute COPD / Chronic O2 dependent respiratory failure The trigger of the COPD exacerbation is likely acute heart failure or aspiration. His [place] chronic obstructive pulmonary disease risk scare (OCRS) guide to admission vs discharge in COPD exacerbation = 5 points = 32.9% risk of adverse event, this puts him in the high risk category and supports the decision to admit him under in patient status Plan: supplemental O2 / continuous pulse oximetry / aspiration precautions / f/u ABG, d-dimer / IV Solumedrol / Levalbuterol (rather than albuterol to reduce the risk of inducing more tachycardia) and Ipatropium Q6H / c/w Tiotropium/ there is no need for Levofloxacin because his cough is not purulent or productive / if the Pulmonary Rehab program has resumed the day time team may consider placing a referral for Pulmonary Rehab, which has been shown to reduce exacerbation & mortality if patient attends within 4 weeks of episode of acute COPD, when he is ready to be discharged / 4 SIRS SIRS criteria include a RR of 22 and HR in the 150s. His lactic acid is wnl. The respiratory panel and chest xray are also unremarkable Plan: because his qSOFA score is 2 (high risk) and his NEWS2 Score is 7 (high risk) we will also order order blood cx 5 Macrocytic Anemia Likely due to COPD Plan: f/u CBC 6 Chronic CAD w placement of 2 stents Plan: Aspirin Atorvastatin Clopidogrel 7 Chronic right occipital, left pontine, left cerebellar CVAs w with 75% steno sis of the left distal vertebral and basal arteries Plan: Aspirin Atorvastatin 8 Essential HTN He developed hypotension after metoprolol and diltiazem but at the time of my evaluation his SBP was 130 Plan: IV lasix / the day time team can resume Lisinopril & Spironolactone if his BP permits 9 Class 1 obesity with CHRISTINA Complicates care Plan: f/u A1C / the patient can f/u w his or her PCP for a sales officer consult, to discuss staring Saxenda, which is indicated in patients with a BMI >27 with co-existing DM, HTN or dyslipidemia to help with weight control as an adjunct to exercise / the day time team may consider calling his to bring his CPAP machine DVT n/a on DOAC Dispo: home after at least 2 midnights stay Home Medications Scheduled Albuterol Sulfate (Proventil Hfa) 6.7 Gm Hfa.aer.ad, 2 PUFF INH QID for wheezing Aspirin (Ecotrin) 81 Mg Tablet.dr, 81 MG PO DAILY Atorvastatin Calcium (Atorvastatin Calcium) 40 Mg Tablet, 40 MG PO DAILY Clopidogrel Bisulfate (Clopidogrel) 75 Mg Tablet, 75 MG PO DAILY Furosemide (Furosemide) 20 Mg Tablet, 20 MG PO DAILY Lisinopril (Lisinopril) 10 Mg Tablet, 10 MG PO DAILY Pantoprazole Sodium (Pantoprazole Sodium) 40 Mg Tablet.dr, 40 MG PO DAILY Spironolactone (Spironolactone) 25 Mg Tablet, 25 MG PO DAILY Tiotropium Kake (Spiriva) 18 Mcg Cap.w.dev, 1 PUFF INH DAILY Allergies Coded Allergies: fentanyl (Verified Allergy, Severe, looses his mind, 12/11/20) codeine (Verified Allergy, Intermediate, rash, 12/11/20) A-FIB/CHADSVASC A-FIB History Current/History of A-Fib/PAF?: Yes Current PO Anticoag Therapy: Yes MAX DANG MD Jan 10, 2021 01:41
[2021-01-10 01:55] LABS: MAGNESIUM LEVEL 2.4 MG/DL (1.8-2.4)
[2021-01-10] MEDS: APIXABAN 5 MG TAB (ELIQUIS) PO SCH ×3 (02:00→20:43)
[2021-01-10] MEDS ORDERED: DIGOXIN INJ 0.5 MG/2 ML AMP (J1160) IV ONE (02:00)
[2021-01-10] MEDS ORDERED: methylPREDNISolone 125MG 2ML VIAL IV STA (02:00)
[2021-01-10] MEDS: IPRATROPIUM 0.02% SOLN 0.5MG 2.5ML NEB NEB SCH ×4 (02:28→19:31)
[2021-01-10] MEDS: LEVALBUTEROL 1.25 MG/0.5 ML CONCENTRATE NEB NEB SCH ×4 (02:29→19:31)
[2021-01-10 05:46] LABS: ABG HCO3 24.6 MEQ/L (22.0-26.0); ABG O2 SATURATION 95.2 % (95.0-99.0); ABG PARTIAL PRESSURE CO2 44.3 mmHg (35.0-45.0); ABG PARTIAL PRESSURE O2 77.9 mmHg (75.0-100.0); ABG STANDARD HCO3 23.6 MEQ/L (22.0-26.0); ABG TOTAL CO2 25.9 MEQ/L (22.0-29.0); ABG pH (ARTERIAL) 7.362 UNITS (7.350-7.450)
[2021-01-10] MEDS ORDERED: DIGOXIN INJ 0.5 MG/2 ML AMP (J1160) IV SCH (06:00)
[2021-01-10] MEDS ORDERED: FUROSEMIDE 40MG/4ML VIAL (J1940) IV SCH (06:00)
[2021-01-10 06:27] LABS: HEMATOCRIT 35.6 % (42.0-52.0); HEMOGLOBIN 10.8 g/dl (13.5-17.5); MEAN CORPUSCULAR HEMOGLOBIN 30.9 pg (27.0-33.0); MEAN CORPUSCULAR HGB CONC 30.3 g/dl (32.0-36.5); PLATELET COUNT, AUTOMATED 206 10^3/uL (150-450); RED BLOOD COUNT 3.49 10^6/uL (4.30-6.10); WHITE BLOOD COUNT 10.1 10^3/uL (4.0-10.0)
[2021-01-10] MEDS ORDERED: FLUBLOK(EGG FREE)(QUAD)INFLUENZA VACC 0.5ML SYRINGE 18YRS & OLDER IM SCH (06:30)
[2021-01-10 06:48] LABS: HEMOGLOBIN A1c 6.4 %
[2021-01-10 07:00] LABS: CALCIUM LEVEL 8.9 MG/DL (8.5-10.1); CREATININE FOR GFR 1.67 MG/DL (0.70-1.30); DIGOXIN LEVEL 1.8 NG/ML (0.5-2.0); GLOMERULAR FILTRATION RATE 45.1 (>56); POTASSIUM SERUM 5.7 MEQ/L (3.5-5.1); TROPONIN I 0.04 NG/ML (< 0.10)
[2021-01-10] MEDS: FUROSEMIDE 40MG/4ML VIAL (J1940) IV SCH ×2 (07:28→16:26)
[2021-01-10] MEDS: TIOTROPIUM INHALER/CAPSULE (SPIRIVA) INH SCH (07:30)
[2021-01-10] MEDS: ASPIRIN 81MG ENTERIC TABLET PO SCH (08:31)
[2021-01-10] MEDS: ATORVASTATIN 20 MG TAB PO SCH (08:31)
[2021-01-10] MEDS: CLOPIDOGREL 75 MG TAB PO SCH (08:31)
[2021-01-10] MEDS: PANTOPRAZOLE 40MG TAB (PROTONIX) PO SCH (08:31)
[2021-01-10] MEDS ORDERED: ENOXAPARIN 40MG/0.4ML SYRINGE (J1650 PER 10MG) SC SCH (09:00)
--- NOTE | 2021-01-10 10:33 | REP ---
INDICATION: Transient R sided weakness, numbness, resolved on arrival.. COMPARISON: Comparison head CT study September 19, 2020.. TECHNIQUE: Helical scanning is acquired. 5 mm axial images were reformatted. Coronal MPR images were generated. FINDINGS: Digital preliminary sports clerk radiograph is unremarkable. The patient is edentulous. Bone window settings demonstrate intact bony calvarium. There is heavy vascular calcification in the distribution of the distal vertebral artery particularly on the left and in both carotid arteries at the skull base. No intraorbital abnormality is seen. On soft tissue window settings, there is no evidence of intracranial hemorrhage. There is an old lacunar infarct in the left andreina and there is a larger area of old encephalomalacia in the right occipital lobe consistent with an old infarct in the right occipital lobe. The left andreina and right occipital infarcts were noted to be acute on 19 September [address] study[address] Today's CT study shows no evidence of acute infarction, hemorrhage, mass, extra-axial fluid collection or midline shift. IMPRESSION: Extensive vascular calcification at the skull base. Old encephalomalacia in the right occipital lobe and old lacunar infarct in the left andreina noted. No acute intracranial abnormality.. <Electronically signed by Warren Garcia > 01/10/21 102
--- NOTE | 2021-01-10 10:42 | REP ---
INDICATION: elevated D dimer, r/o DVT. COMPARISON: None. TECHNIQUE: Bilateral lower extremity duplex venous scanning is performed from the groin to the ankle level. FINDINGS: The deep veins are anechoic and fully compressible from the groin to the popliteal fossa in the left and right lower extremity. Color flow imaging is homogeneous. Spectral Doppler interrogation demonstrates intact respiratory variation in flow and normal manual augmentation of flow. There is no evidence of deep vein thrombosis in the femoropopliteal veins. There is no evidence of deep vein thrombosis in the visualized calf veins. The proximal calf veins are poorly visualized due to edema bilaterally. IMPRESSION: No evidence of DVT in the femoropopliteal veins. No DVT in the visible portions of the calf veins. <Electronically signed by Warren Garcia > 01/10/21 [id number]
[2021-01-10] MEDS: methylPREDNISolone 125MG 2ML VIAL IV SCH ×2 (11:09→18:13)
[2021-01-10] MEDS ORDERED: SOD POLYSTYRENE SULFONATE SUSP 15 GM/60 ML UD PO ONE (11:30)
[2021-01-10] MEDS ORDERED: PATIROMER SORBITEX CALCIUM 8.4 GM POWDER PACKET (VELTASSA) PO ONE (12:00)
--- NOTE | 2021-01-10 12:06 | REP ---
INDICATION: JAKOB, r/o hydro. COMPARISON: Comparison sonography June 11, 2020.. TECHNIQUE: Urinary tract sonography. FINDINGS: Scanning of the level of the urinary bladder was precluded by the presence of a Campbell catheter.. Renal cortical echogenicity pattern is normal in contours are smooth bilaterally. There is no evidence hydronephrosis, mass, or cyst on either side.. . The right kidney measures 11.9 x 4.9 x 3.8 cm. Left renal dimensions are 12.3 x 4.6 x 5.6 cm. The left kidney contains an echogenic focus in midpole level measuring 1.2 cm in greatest diameter which could reflect an intrarenal calculus. IMPRESSION: Possible intrarenal calculus left kidney without evidence of hydronephrosis. Otherwise negative urinary tract sonography. Campbell catheter in the empty urinary bladder.. <Electronically signed by Warren Garcia > 01/10/21 [id number]
[2021-01-10] MEDS: METOPROLOL TART 25 MG TABLET PO SCH ×2 (12:50→18:14)
[2021-01-10] MEDS ORDERED: AMIODARONE HCL 150 MG in IV 1 EA IV STA (13:10)
[2021-01-10] MEDS ORDERED: RAMELTEON 8 MG TAB (ROZEREM) PO PRN (21:20)
[2021-01-11] VITALS (15 sets, daily range): BP systolic 99–142; BP diastolic 68–81; O2SAT 92–99
[2021-01-11] MEDS: METOPROLOL TART 25 MG TABLET PO SCH ×4 (00:18→17:14)
[2021-01-11] MEDS: methylPREDNISolone 125MG 2ML VIAL IV SCH (01:29)
[2021-01-11] MEDS: LEVALBUTEROL 1.25 MG/0.5 ML CONCENTRATE NEB NEB SCH ×4 (01:31→20:33)
[2021-01-11] MEDS: IPRATROPIUM 0.02% SOLN 0.5MG 2.5ML NEB NEB SCH ×4 (01:31→20:33)
[2021-01-11 04:17] LABS: BASO % 0.1 % (0.0-1.0); HEMATOCRIT 34.4 % (42.0-52.0); HEMOGLOBIN 10.7 g/dl (13.5-17.5); LYMPH # 0.7 10^3/uL (1.5-5.0); LYMPH % 5.8 % (24.0-44.0); MEAN CORPUSCULAR HEMOGLOBIN 30.9 pg (27.0-33.0); MEAN CORPUSCULAR HGB CONC 31.1 g/dl (32.0-36.5); MEAN CORPUSCULAR VOLUME 99.4 fl (80.0-96.0); MONO # 0.3 10^3/uL (0.0-0.8); MONO % 2.7 % (2.0-8.0); NEUTROPHILS # 10.9 10^3/uL (1.5-8.5); NEUTROPHILS % 90.5 % (36.0-66.0); PLATELET COUNT, AUTOMATED 212 10^3/uL (150-450); RED BLOOD COUNT 3.46 10^6/uL (4.30-6.10)
[2021-01-11 04:40] LABS: ALBUMIN 3.4 GM/DL (3.2-5.2); BILIRUBIN,TOTAL 0.4 MG/DL (0.2-1.0); CALCIUM LEVEL 9.1 MG/DL (8.5-10.1); CREATININE FOR GFR 1.66 MG/DL (0.70-1.30); GLOMERULAR FILTRATION RATE 45.4 (>56); MAGNESIUM LEVEL 2.4 MG/DL (1.8-2.4); POTASSIUM SERUM 4.9 MEQ/L (3.5-5.1); TOTAL PROTEIN 7.3 GM/DL (6.4-8.2)
[2021-01-11] MEDS: TIOTROPIUM INHALER/CAPSULE (SPIRIVA) INH SCH (07:21)
[2021-01-11] MEDS: ASPIRIN 81MG ENTERIC TABLET PO SCH (08:41)
[2021-01-11] MEDS: APIXABAN 5 MG TAB (ELIQUIS) PO SCH ×2 (08:41→21:05)
[2021-01-11] MEDS: CLOPIDOGREL 75 MG TAB PO SCH (08:41)
[2021-01-11] MEDS: ATORVASTATIN 20 MG TAB PO SCH (08:41)
[2021-01-11] MEDS: PANTOPRAZOLE 40MG TAB (PROTONIX) PO SCH (08:41)
[2021-01-11] MEDS: FUROSEMIDE 40MG/4ML VIAL (J1940) IV SCH ×2 (08:45)
[2021-01-11] MEDS: predniSONE 20 MG TAB PO SCH (10:32)
--- NOTE | 2021-01-11 12:19 | IPNPDOC ---
Date Seen The patient was seen on 01/11/21. Progress Note SUBJECTIVE:patient was seen and examined at bedside this morning. States that his SOB is much improved, he does not endorse chest pain, palpitations, nausea, vomiting or diarrhea. HR has been much improved overnight while taking PO metoprolol. Dr. Antonio discontinued the amiodarone. I attempted to reach patient's Alison Gardner (tel [phone]) but there was no reply and voicemail box was not set up. OBJECTIVE PHYSICAL EXAMINATION: VITAL SIGNS: please see below General: NAD, comfortable HEENT: PERRLA, EOMI, sclerae clear Neck: supple, normal ROM, no JVD Respiratory: reduced air entry bilaterally, resolved inspiratory wheeze, no rales, no crackles appreciated. CVS: RRR, normal S1, S2, no murmurs Abdo: soft, no masses, no hepatosplenomegaly, BS+, no rebound tenderness Extremities: no edema, pulses 2+ MSK: no joint deformities, normal ROM Neuro: no focal neuro deficits, moving all 4 extremities, CN2-12 intact. Strength 5/5 in all 4 extremities. No nystagmus. Psych: calm, cooperative, AAO x 3 LABORATORY DATA, IMAGING STUDIES, MICROBIOLOGY: Please see below. Echocardiogram: - prelim report briefly provided by Dr. Antonio. Reports significantly diminished EF from prior study. Will await final report. DVT prophylaxis ordered?: patient is on eliquis. ASSESSMENT AND PLAN: 60 yo M, with a PMHx of COPD wit O2 dependent respiratory failure, chronic HFpEF, CAD s/p 2 stends, CVA (R occipital, L pontine, L cerebellar, with 75% stenosis L distal vertebral and basal arteries), HTN, CHRISTINA, loop recorder for suspect tachyarrhythmias, infrarenal AAA. Admitted for rapid aflutter suspected to be due to acute COPD exacerbation. PROBLEMS: #Aflutter with RVR - appears to be a new diagnosis, but patient has a loop recorder in place, I suspect aflutter may have been present for some time - supsect etiology behind RVR is use of albuterol inhaler in setting of acute COPD exacerbation - Dr. Antonio was consulted to assist in management of aflutter. - repeat echo was obtained, per Dr. Antonio, significantly diminished EF. - started on eliquis - rate was controlled initially with IV digoxin, cardizem and amiodarone - rate well controlled now with metoprolol 25 mg q6h #Acute COPD exacerbation on chronic O2 dependent respiratory failure - currently on 4L O2 - dc IV solumedrol, switch to PO prednisone 40 mg daily. - patient is unsure if he follows with pulmonology - c/w duonebs. acute on chronic HFrEF exacerbation - reduced EF per Dr. Antonio - c/w coreg 25 mg q6h - start entresto on 01/12/21, 72 hours after DC of lisinopril - will reduce dose of lasix from 40 mg IV q8hy, to 40 mg PO daily, as edema and SOB have improved. - will need to f/u with Dr. Mendoza. #JAKOB - Cr 1.22 on arrival increased to 1.66 - suspect 2/2 use of diuretics - renal US showing possible calculus without hydronephrosis - reduce dose of lasix, now on 40 mg PO daily (home dose 20 mg PO daily) #SIRS on admission - LA normal on admission, not acidotic on ABG - leukocytosis increasing, likely in setting of # Macrocytic Anemia - hgb stable # Chronic CAD w placement of 2 stents - I discussed with Dr. Antonio who is consulted. - recommending DC aspirin, and c/w plavix and eliquis #Chronic right occipital, left pontine, left cerebellar CVAs w with 75% stenosis of the left distal vertebral and basal arteries - c/w plavix and eliquis #Essential HTN - presently receiveing coreg 25 mg q6h for rate control - BP has been appropriate, with one episode of SBP to 100 - paramaters in place. # Class 1 obesity with CHRISTINA Complicates care Plan: f/u A1C / the patient can f/u w his or her PCP for a fluid power mechanic consult, to discuss staring Saxenda, which is indicated in patients with a BMI >27 with co-existing DM, HTN or dyslipidemia to help with weight control as an adjunct to exercise / the day time team may consider calling his to bring his CPAP machine DVT n/a on DOAC Dispo: home after at least 2 midnights stay VS, I&O, 24H, Fishbone Vital Signs/I&O Vital Signs Date Time Temp Pulse Resp B/P (MAP) Pulse Ox O2 Delivery O2 Flow Rate FiO2 01/11/21 08:00 4.0 01/11/21 08:00 95 Nasal Cannula 01/11/21 08:00 97.4 74 120/77 (91) 01/11/21 04:00 26 01/10/21 06:00 40 I&O- Last 24 Hours up to 6 AM 01/11/21 06:00 Intake Total 1640 ml Output Total 3000 ml Balance -1360 ml Laboratory Data 24H LABS Laboratory Tests 2 01/10/21 14:41: Troponin I 0.02# 01/10/21 16:23: Urine Color STRAW, Urine Appearance CLEAR, Urine pH 5.0, Urine Specific [place] 1.006, Urine Protein NEGATIVE, Urine Glucose (UA) 1+H, Urine Ketones NEGATIVE, Urine Blood 2+H, Urine Nitrite NEGATIVE, Urine Bilirubin NEGATIVE, Urine Urobilinogen 0.2, Urine Leukocyte Esterase NEGATIVE, Urine WBC (Auto) 3, Urine RBC (Auto) 35H, Urine Hyaline Casts (Auto) 3, Urine Bacteria (Auto) NEGATIVE, Urine Squamous Epithelial Cells 0, Urine Sperm (Auto) 01/11/21 03:57: Immature Granulocyte % (Auto) 0.9, Neutrophils (%) (Auto) 90.5H, Lymphocytes (%) (Auto) 5.8L, Monocytes (%) (Auto) 2.7, Eosinophils (%) (Auto) 0.0, Basophils (%) (Auto) 0.1, Neutrophils # (Auto) 10.9H, Lymphocytes # (Auto) 0.7L, Monocytes # (Auto) 0.3, Eosinophils # (Auto) 0.0, Basophils # (Auto) 0.0, Nucleated Red Blood Cells % (auto) 0.0, Anion Gap 7L, Glomerular Filtration Rate 45.4L, Calcium Level 9.1, Magnesium Level 2.4, Total Bilirubin 0.4, Aspartate Amino Transf (AST/SGOT) 6L, Alanine Aminotransferase (ALT/SGPT) 15, Alkaline P hosphatase 80, Total Protein 7.3, Albumin 3.4, Albumin/Globulin Ratio 0.9 CBC/BMP Laboratory Tests 01/11/21 03:57 Microbiology Microbiology 01/10/21 Blood Culture - Preliminary, Resulted No growth after 24 hours . All specim... 01/09/21 Respiratory Virus Panel (PCR) ([facility]) - Final, Complete POLINKEVYCHLENA MD Jan 11, 2021 12:19
--- NOTE | 2021-01-11 15:14 | REP ---
INDICATION: assess for ascites. COMPARISON: None. TECHNIQUE: Helical scanning is acquired without IV or oral contrast. 3 mm axial images re-formatted. Coronal and sagittal MPR images are generated. FINDINGS: Preliminary digital front office spec radiograph demonstrates an unremarkable bowel gas pattern. Moderate cardiomegaly is observed in the pleural angles appear blunted. Axial CT images confirm the presence of small bilateral pleural effusions and cardiomegaly. There is diffuse hypertrophy of the adrenal glands without mass lesion. The spleen is normal in size and appearance. The liver is homogeneous in texture normal in size. No abnormality is noted in the pancreas. There is no evidence of upper abdominal ascites. There is ectasia of the abdominal aorta measuring up to 3.4 cm in greatest anteroposterior dimension. Intrarenal nephrolithiasis is seen in the midpole position of the left kidney without hydronephrosis. There is a 4-5 mm calculus at this location the left kidney. Vascular calcification is observed. Lower abdominal CT images show no evidence of ascites in the visualized lower abdomen and upper pelvis. Small and large bowel loops are unremarkable. No retroperitoneal mass or adenopathy is seen. No bony destructive lesion is seen. IMPRESSION: There is no visible ascites on CT study of the abdomen. Small bilateral pleural effusions are seen. Bilateral adrenal hyperplasia is noted. Intrarenal nephrolithiasis left kidney. Small contracted appearing gallbladder. <Electronically signed by Warren Garcia > 01/11/21 1157
[2021-01-12] VITALS (17 sets, daily range): BP systolic 94–131; BP diastolic 50–76; O2SAT 94–99
[2021-01-12] MEDS: METOPROLOL TART 25 MG TABLET PO SCH ×4 (01:08→17:54)
[2021-01-12] MEDS: LEVALBUTEROL 1.25 MG/0.5 ML CONCENTRATE NEB NEB SCH ×4 (02:25→19:30)
[2021-01-12] MEDS: IPRATROPIUM 0.02% SOLN 0.5MG 2.5ML NEB NEB SCH ×4 (02:25→19:30)
[2021-01-12 06:11] LABS: BASO % 0.1 % (0.0-1.0); LYMPH # 1.9 10^3/uL (1.5-5.0); LYMPH % 13.7 % (24.0-44.0); MEAN CORPUSCULAR HEMOGLOBIN 30.9 pg (27.0-33.0); MEAN CORPUSCULAR HGB CONC 30.3 g/dl (32.0-36.5); MEAN CORPUSCULAR VOLUME 101.9 fl (80.0-96.0); MONO % 7.2 % (2.0-8.0); NEUTROPHILS # 10.7 10^3/uL (1.5-8.5); NEUTROPHILS % 78.3 % (36.0-66.0); PLATELET COUNT, AUTOMATED 206 10^3/uL (150-450); RED BLOOD COUNT 3.24 10^6/uL (4.30-6.10); WHITE BLOOD COUNT 13.7 10^3/uL (4.0-10.0)
[2021-01-12 06:42] LABS: BILIRUBIN,TOTAL 0.3 MG/DL (0.2-1.0); CALCIUM LEVEL 8.6 MG/DL (8.5-10.1); CREATININE FOR GFR 1.31 MG/DL (0.70-1.30); GLOMERULAR FILTRATION RATE 59.6 (>56); MAGNESIUM LEVEL 2.4 MG/DL (1.8-2.4); POTASSIUM SERUM 4.5 MEQ/L (3.5-5.1); TOTAL PROTEIN 6.4 GM/DL (6.4-8.2)
[2021-01-12] MEDS: TIOTROPIUM INHALER/CAPSULE (SPIRIVA) INH SCH (07:36)
[2021-01-12] MEDS: PANTOPRAZOLE 40MG TAB (PROTONIX) PO SCH (09:07)
[2021-01-12] MEDS: FUROSEMIDE 40 MG TAB PO SCH (09:07)
[2021-01-12] MEDS: ASPIRIN 81MG ENTERIC TABLET PO SCH (09:07)
[2021-01-12] MEDS: APIXABAN 5 MG TAB (ELIQUIS) PO SCH ×2 (09:07→20:57)
[2021-01-12] MEDS: predniSONE 20 MG TAB PO SCH (09:07)
[2021-01-12] MEDS: ATORVASTATIN 20 MG TAB PO SCH (09:07)
[2021-01-12] MEDS: CLOPIDOGREL 75 MG TAB PO SCH (09:07)
[2021-01-12] MEDS: ENTRESTO 24-26MG TABLET (SACUBITRIL/VALSARTAN) PO SCH ×2 (10:20→20:48)
[2021-01-12] MEDS: SYMBICORT 80/4.5MCG INHALER 6GM INH SCH ×2 (10:58→19:30)
--- NOTE | 2021-01-12 11:27 | CR ---
CONSULTATION DATE: 01/10/2021 REFERRING PHYSICIAN: Gianni Shannon MD REASON FOR CONSULTATION: Atrial fibrillation, congestive heart failure. HISTORY OF PRESENT ILLNESS: A 60-year-old male with a long history of heart disease according to his chart. He could not elaborate. He was significantly short of breath when I saw him. It seems that he has a history of CAD with some PTCA/stent in the past, multiple CVAs for which he has got an implantable loop recorder done by Dr. Mendoza earlier his year, hypertension, hyperlipidemia, diabetes mellitus, obesity and obstructive sleep apnea, infrarenal abdominal aortic aneurysm, COPD with chronic oxygen therapy at 3 liters nasal cannula, nephrolithiasis, bipolar disorder. The last assessment of his LVEF recently was approximately 50%. He came to the hospital on 01/09/2021 because of a three day history of increasing shortness of breath and increasing pedal edema, orthopnea, palpitations. He was found to be in heart failure and admitted to ICU for further management and monitoring. It was diagnostic of atrial flutter with a rapid ventricular rate, acute decompensated congestive heart failure, COPD exacerbation. When I say Mr. Deni Perdomo in the ICU/CCU, he was sitting up in bed and still having shortness of breath but he thinks this has improved. He denies any chest pain. His pedal edema has improved. He has no report of bleeding. He is still coughing and he is still having wheezing. He has no focal manifestation. He takes his medication regularly but maybe not quite compliant with diet. He denies any ETOH abuse but there is a vague history. He denies any bleeding. He has no nausea, vomiting, diarrhea, melena or hematemesis. PAST MEDICAL HISTORY: Positive for recent implantation of a loop recorder, [employer]. FAMILY HISTORY: Positive for hypertension, diabetes mellitus, COPD and skin cancer/melanoma. SOCIAL HISTORY: The patient currently lives in town in the [facility]. Prior to that, he was living in [place] and he stated he used to drink heavily and also used to drink a significant amount of alcohol. MEDICATIONS AT HOME: 1. Aspirin 81 mg p.o. daily. 2. Plavix 75 mg p.o. daily. 3. Atorvastatin 40 mg p.o. daily. 4. Lasix 20 mg daily. 5. Lisinopril 10 mg p.o. daily. 6. Spironolactone 25 mg p.o. daily. 7. Pantoprazole 40 mg p.o. daily. 8. Albuterol MDI as needed for wheezing. 9. He is also on Spiriva. ALLERGIES: CODEINE AND PROTAMINE. CODE STATUS: THE PATIENT IS A FULL CODE. PHYSICAL EXAMINATION: GENERAL: Patient is alert and oriented, in no acute distress at rest. VITAL SIGNS: His vital signs when I saw him revealed a blood pressure of 157/84 with of a pulse of 133, respirations 24 and temperature is 97.1 degrees Fahrenheit with a oxygen saturation of 95% on four liters nasal cannula. HEENT: Head atraumatic. Fundus examination was not done. NECK: Supple and increased JVD noted. LUNGS: Revealed bilateral crackles at the bases, also bilateral end expiratory wheezing. HEART: Revealed irregularly irregular heart sounds, tachycardic. The PMI is displaced inferiorly and laterally. There is rub. ABDOMEN: Soft and nontender. EXTREMITIES: +1 bilateral lower leg edema. NEUROLOGIC: Negative for focal deficits. LABORATORY DATA: CBC on 01/10/2021 revealed a WBC of 10.1, hemoglobin 10.8, hematocrit 35.6 and platelet count was 6000. BMP on 01/10/2021 revealed a sodium of 137, potassium 5.7, chloride 104, CO2 28, BUN 35, creatinine 1.67, GFR 45.1, fasting glucose 217, calcium 8.9. Troponin has been negative. The highest recorded was 0.04. ProBNP on admission was 4201. Digoxin is 1.8. Respiratory panel is negative including SARS COVID-19. Blood culture has been negative. Chest x-ray on admission, 01/09/2021 revealed a small bilateral pleural effusion and manifestation of congestive heart failure. Doppler of the legs on 01/10/2021 revealed no evidence of DVT in the lower extremities. Head CT without contrast on 01/10/2021 revealed extensive vascular calcifications, old encephalomalacia in the right occipital lobe and old lacunar infarcts in the left andreina. No acute intracranial process. Renal ultrasound on 01/10/2021 revealed possible intrarenal calculus in the left kidney without evidence of hydronephrosis. Otherwise, it was negative. IMPRESSION: 1. Atrial flutter/fib with a rapid ventricular rate. Patient currently on Digoxin and will continue the same for now. I have added the metoprolol tartrate at the current dose and he will be monitored. He is currently on Eliquis/apixaban for prevention of thrombotic events and he will continue the same. IV Digoxin and IV amiodarone will be given as needed. 2. Congestive heart failure. Recently, LVEF was reported to be about 50%. Echocardiogram will be done today and it will be reviewed. In the meantime, we will continue with the IV Lasix. 3. History of CAD and PTCA/stent, on aspirin therapy and on beta yang. In the past, he was on KAYA inhibitor. We will continue with restructure modifications. 4. History of hypertension. 5. Hyperlipidemia, on a statin. 6. History of CVA. 7. Exacerbation of COPD and this is being addressed. Thank you for asking me to participate in the care of Mr. Deni Perdomo for his underlying cardiac condition. I will continue to monitor him on admission while in the hospital. The case was discussed with his hospitalist.
--- NOTE | 2021-01-12 11:29 | ECHO ---
ECHOCARDIOGRAM DATE OF PROCEDURE: 01/10/2021 Age: Gender: Height: Weight: REFERRING PROVIDER: Miriam Sosa MD. PATIENT LOCATION: Room 3202. REASON FOR THE STUDY: Shortness of breath, atrial fibrillation, heart failure. 2D MEASUREMENTS: IVS 1.3 cm LV 7.6 cm LVPW 1.3 cm LA 5.7 cm Aorta 3.8 cm IVC 2.5 cm DOPPLER MEASUREMENT Peak velocity across the LVOT 0.95 m/s 2D COMMENTS: 1. Markedly enlarged left ventricle with preserved left ventricular wall thickness but a severely depressed global left ventricular systolic function. The estimated left ventricular systolic ejection fraction is 25%. 2. Moderately enlarged left atrium. The right atrium and the right ventricle appeared to be normal in size. 3. The atrial septum appeared to be normal without evidence of defect or shunt. 4. Mildly dilated aortic root. 5. Mildly calcified aortic valve with normal leaflet excursion. Mildly calcified mitral annulus with normal anterior mitral valve leaflet motion. Normal tricuspid valve and pulmonic valve. The proximal pulmonary artery branches also appeared to be normal. 6. The inferior vena cava is dilated, central venous pressure is most likely elevated. 7. A small pericardial effusion was noted, no evidence of cardiac tamponade. DOPPLER: It detects trace aortic regurgitation, moderate mitral regurgitation, trace tricuspid regurgitation. Pulmonary artery systolic pressure is probably normal. Assessment of the left ventricular diastolic function was limited in view of the underlying arrhythmias. IMPRESSION: 1. Severely depressed global left ventricular systolic dysfunction with a markedly dilated left ventricle and diffuse hypokinesis. Assessment of the left ventricular diastolic function was limited. 2. Aortic valve sclerosis without stenosis. Trace aortic regurgitation detected. 3. Mitral annulus calcification with moderately enlarged left atrium and moderate mitral regurgitation. 4. Trace tricuspid regurgitation. 5. A small pericardial effusion was noted, no evidence of cardiac tamponade.
--- NOTE | 2021-01-12 14:18 | IPNPDOC ---
Date Seen The patient was seen on 01/12/21. Progress Note Progress Note SUBJECTIVE:patient was seen and examined at bedside this morning. States that his SOB is much improved, he does not endorse chest pain, palpitations, nausea, vomiting or diarrhea. HR has been much improved overnight while taking PO metoprolol. Dr. Antonio discontinued the amiodarone. Presently rate controlled on coreg. Anticoagulated on eliquis. Started entresto this morning. I spoke to patient's daughter Analia on the telephone at bedside. OBJECTIVE PHYSICAL EXAMINATION: VITAL SIGNS: please see below General: NAD, comfortable HEENT: PERRLA, EOMI, sclerae clear Neck: supple, normal ROM, no JVD Respiratory: reduced air entry bilaterally, resolved inspiratory wheeze, no rales, no crackles appreciated. CVS: RRR, normal S1, S2, no murmurs Abdo: soft, no masses, no hepatosplenomegaly, BS+, no rebound tenderness Extremities: no edema, pulses 2+ MSK: no joint deformities, normal ROM Neuro: no focal neuro deficits, moving all 4 extremities, CN2-12 intact. Strength 5/5 in all 4 extremities. No nystagmus. Psych: calm, cooperative, AAO x 3 LABORATORY DATA, IMAGING STUDIES, MICROBIOLOGY: Please see below. Echocardiogram: - prelim report briefly provided by Dr. Antonio. Reports significantly diminished EF from prior study. Will await final report. DVT prophylaxis ordered?: patient is on eliquis. ASSESSMENT AND PLAN: 60 yo M, with a PMHx of COPD wit O2 dependent respiratory failure, chronic HFpEF, CAD s/p 2 stends, CVA (R occipital, L pontine, L cerebellar, with 75% stenosis L distal vertebral and basal arteries), HTN, CHRISTINA, loop recorder for suspect tachyarrhythmias, infrarenal AAA. Admitted for rapid aflutter suspected to be due to acute COPD exacerbation. PROBLEMS: #Aflutter with RVR - appears to be a new diagnosis, but patient has a loop recorder in place, I suspect aflutter may have been present for some time - supsect etiology behind RVR is use of albuterol inhaler in setting of acute COPD exacerbation - Dr. Antonio was consulted to assist in management of aflutter. - repeat echo was obtained, per Dr. Antonio, significantly diminished EF. - started on eliquis - rate was controlled initially with IV digoxin, cardizem and amiodarone - rate well controlled now with metoprolol 25 mg q6h #Acute COPD exacerbation on chronic O2 dependent respiratory failure - currently on 4L O2 (on chronic 3.5 L at home). - dc IV solumedrol, switch to PO prednisone 40 mg daily. - c/w duonebs. - added symbicort to regimen on 01/12/21. - needs to be seen in pulmonology clinic acute on chronic HFrEF exacerbation - reduced EF per Dr. Antonio - c/w coreg 25 mg q6h - started entresto on 01/12/21, 72 hours after DC of lisinopril - f/u final ECHO report - will reduce dose of lasix from 40 mg IV q8h, to 40 mg PO daily, as edema and SOB have improved. - will need to f/u with Dr. Mendoza. #JAKOB - improving, Cr peak at 1.66, trending down to 1.31. - suspect 2/2 use of diuretics - renal US showing possible calculus without hydronephrosis - reduce dose of lasix, now on 40 mg PO daily (home dose 20 mg PO daily) #SIRS on admission - LA normal on admission, not acidotic on ABG - leukocytosis increasing, likely in setting of steroid use - will check procalcitonin - will start patient on a Z-pack given severity of COPD and frequent exacerbations. # Macrocytic Anemia - hgb stable # Chronic CAD w placement of 2 stents - I discussed with Dr. Antonio who is consulted. - recommending DC aspirin, and c/w plavix and eliquis #Chronic right occipital, left pontine, left cerebellar CVAs w with 75% stenosis of the left distal vertebral and basal arteries - c/w plavix and eliquis #Essential HTN - presently receiveing coreg 25 mg q6h for rate control - BP has been appropriate, with one episode of SBP to 100 - paramaters in place. # Class 1 obesity with CHRISTINA - Complicates care - CPAP brought in by family #hx of keratitis - needs to f/u with ophtalmology - c/w artificial tears. DVT n/a on DOAC Dispo: home after at least 2 midnights stay VS, I&O, 24H, Fishbone Vital Signs/I&O Vital Signs Date Time Temp Pulse Resp B/P (MAP) Pulse Ox O2 Delivery O2 Flow Rate FiO2 01/12/21 12:00 97.9 81 19 101/67 (78) 96 Nasal Cannula 4.0 01/10/21 06:00 40 I&O- Last 24 Hours up to 6 AM 01/12/21 06:00 Intake Total 1550 ml Output Total 2750 ml Balance -1200 ml Laboratory Data 24H LABS Laboratory Tests 2 01/12/21 05:47: Immature Granulocyte % (Auto) 0.7, Neutrophils (%) (Auto) 78.3H, Lymphocytes (%) (Auto) 13.7L, Monocytes (%) (Auto) 7.2, Eosinophils (%) (Auto) 0.0, Basophils (%) (Auto) 0.1, Neutrophils # (Auto) 10.7H, Lymphocytes # (Auto) 1.9, Monocytes # (Auto) 1.0H, Eosinophils # (Auto) 0.0, Basophils # (Auto) 0.0, Nucleated Red Blood Cells % (auto) 0.0, Anion Gap 5L, Glomerular Filtration Rate 59.6, Calcium Level 8.6, Magnesium Level 2.4, Total Bilirubin 0.3, Aspartate Amino Transf (AST/SGOT) 3L, Alanine Aminotransferase (ALT/SGPT) 14, Alkaline Phosphatase 64, Total Protein 6.4, Albumin 3.0L, Albumin/Globulin Ratio 0.9 01/12/21 14:05: Lab Scanned Report Miscellaneous Lab CBC/BMP Laboratory Tests 01/12/21 05:47 Microbiology Microbiology 01/10/21 Blood Culture - Preliminary, Resulted No Growth after 48 hours. All Specime... 01/09/21 Respiratory Virus Panel (PCR) ([facility]) - Final, Complete LENA RIOS MD Jan 12, 2021 14:18
[2021-01-12] MEDS ORDERED: POLYVINYL ALCOHOL OPHTH SOLN 15 ML(LIQUITEARS) OU PRN (14:20)
[2021-01-12] MEDS: AZITHROMYCIN 250MG TABLET PO SCH (15:13)
--- NOTE | 2021-01-12 16:26 | ECGEPIP ---
[facility] - ED Test Date: 2021-01-09 Pat Name: ELIEZER SEN Department: Room: [place] [address] Gender: Male Personal Property Appraiser: Josefina NOVAK : 1960 Requested By: HELEN Marie Order Number: [id number] Reading MD: Ginny Hodge Measurements Intervals [place] Rate: 151 P: -86 [place]: QRS: 14 QRSD: 102 T: 47 QT: 298 QTc: 472 Interpretive Statements Atrial flutter with 2:1 AV conduction Septal infarct , age undetermined prior sinus rhythm 09/19/20 Electronically Signed on 01-12-2021 16:26:35 EDT by Ginny Hogde
--- NOTE | 2021-01-12 16:27 | ECGEPIP ---
[facility] - ED Test Date: 2021-01-09 Pat Name: ELIEZER SEN Department: Room: [place] [address] Gender: Male Er Rn: Josefina NOVAK : 1960 Requested By: HELEN Marie Order Number: [id number] Reading MD: Ginny Hodge Measurements Intervals [place] Rate: 74 P: 257 UT: QRS: 17 QRSD: 106 T: 58 QT: 440 QTc: 488 Interpretive Statements Atrial flutter with 4:1 AV conduction Septal infarct , age undetermined atrial flutter 2:1 01/09/21 Electronically Signed on 01-12-2021 16:27:14 EDT by Ginny Hodge
[2021-01-12] MEDS: METOPROLOL TART 12.5 MG PER 1/2 TAB PO SCH (23:42)
[2021-01-13] VITALS (9 sets, daily range): BP systolic 108–121; BP diastolic 58–78; O2SAT 95–98
[2021-01-13] MEDS: IPRATROPIUM 0.02% SOLN 0.5MG 2.5ML NEB NEB SCH ×2 (02:00→07:59)
[2021-01-13] MEDS: LEVALBUTEROL 1.25 MG/0.5 ML CONCENTRATE NEB NEB SCH ×2 (02:00→07:59)
[2021-01-13] MEDS: METOPROLOL TART 12.5 MG PER 1/2 TAB PO SCH ×2 (05:40→12:00)
[2021-01-13 05:51] LABS: BASO % 0.1 % (0.0-1.0); EOS % 0.2 % (0.0-3.0); HEMATOCRIT 33.5 % (42.0-52.0); HEMOGLOBIN 10.3 g/dl (13.5-17.5); LYMPH # 3.4 10^3/uL (1.5-5.0); LYMPH % 28.3 % (24.0-44.0); MEAN CORPUSCULAR HGB CONC 30.7 g/dl (32.0-36.5); MEAN CORPUSCULAR VOLUME 100.9 fl (80.0-96.0); MONO # 1.1 10^3/uL (0.0-0.8); MONO % 9.5 % (2.0-8.0); NEUTROPHILS # 7.4 10^3/uL (1.5-8.5); NEUTROPHILS % 61.5 % (36.0-66.0); PLATELET COUNT, AUTOMATED 219 10^3/uL (150-450); RED BLOOD COUNT 3.32 10^6/uL (4.30-6.10)
[2021-01-13 06:12] LABS: ALBUMIN 2.9 GM/DL (3.2-5.2); ALT/SGPT 17 U/L (12-78); BILIRUBIN,TOTAL 0.3 MG/DL (0.2-1.0); BLOOD UREA NITROGEN 36 MG/DL (7-18); CALCIUM LEVEL 8.5 MG/DL (8.5-10.1); CARBON DIOXIDE LEVEL 38 MEQ/L (21-32); CHLORIDE LEVEL 102 MEQ/L (98-107); CREATININE FOR GFR 1.16 MG/DL (0.70-1.30); GLOMERULAR FILTRATION RATE > 60.0 (>56); GLUCOSE, FASTING 118 MG/DL (70-100); MAGNESIUM LEVEL 2.3 MG/DL (1.8-2.4); POTASSIUM SERUM 4.3 MEQ/L (3.5-5.1); SODIUM LEVEL 141 MEQ/L (136-145); TOTAL PROTEIN 6.2 GM/DL (6.4-8.2)
[2021-01-13] MEDS: TIOTROPIUM INHALER/CAPSULE (SPIRIVA) INH SCH (07:58)
[2021-01-13] MEDS: SYMBICORT 80/4.5MCG INHALER 6GM INH SCH (07:58)
[2021-01-13] MEDS: predniSONE 20 MG TAB PO SCH (08:33)
[2021-01-13] MEDS: FUROSEMIDE 40 MG TAB PO SCH (08:33)
[2021-01-13] MEDS: ASPIRIN 81MG ENTERIC TABLET PO SCH (08:33)
[2021-01-13] MEDS: APIXABAN 5 MG TAB (ELIQUIS) PO SCH (08:33)
[2021-01-13] MEDS: ENTRESTO 24-26MG TABLET (SACUBITRIL/VALSARTAN) PO SCH (08:33)
[2021-01-13] MEDS: CLOPIDOGREL 75 MG TAB PO SCH (08:34)
[2021-01-13] MEDS: ATORVASTATIN 20 MG TAB PO SCH (08:34)
[2021-01-13] MEDS: AZITHROMYCIN 250MG TABLET PO SCH (08:34)
[2021-01-13] MEDS: PANTOPRAZOLE 40MG TAB (PROTONIX) PO SCH (08:34)
[2021-01-13] MEDS ORDERED: METO1TAB87 PO (10:37)
[2021-01-13] MEDS ORDERED: ELIQ5TAB PO (10:37)
[2021-01-13] MEDS ORDERED: FURO20TA2 PO (10:37)
[2021-01-13] MEDS ORDERED: ENTR1TAB PO (10:37)
--- NOTE | 2021-01-13 17:06 | IPN ---
PROGRESS NOTE DATE: 01/12/2021 Mr. Deni Perdomo was seen earlier this morning. He was sitting up in his bed in no acute distress at rest. He states that he feels better, and his shortness of breath has improved significantly as well as his cough and his pedal edema. He denies any bleeding. He denies any chest pain. He was seen yesterday after being admitted with acute decompensated congestive heart failure, atrial fibrillation/flutter with rapid ventricular rate, and exacerbation of chronic obstructive pulmonary disease (COPD). He underwent an echocardiogram yesterday, 01/10/2021, and it revealed a severely depressed global left ventricular systolic function. PHYSICAL EXAMINATION: Patient is alert and oriented. He is in no acute distress at rest and very pleasant. His vital signs this morning revealed a blood pressure of 126/80 with a pulse of 81, respirations 22, and his maximum temperature was 97.4 degrees Fahrenheit with an oxygen saturation of 96% on 4 liters nasal cannula. He has a negative fluid balance of 2 liters. Examination of the head: Atraumatic. Neck is supple, and no jugular venous distention (JVD) appreciated. The lungs did not reveal any wheezing, and no crackles heard. The heart examination revealed an irregular heart sound without gallops. The point of maximal impulse (PMI) is displaced inferiorly and laterally. There is no rub. I could not appreciate any murmurs. The abdomen is soft and nontender, and bowel sounds are active. Extremities revealed only trace ankle edema. Neurological examination is negative for focal deficit. LABORATORY DATA: CBC done today, 01/11/2021, revealed a WBC of 12.0, hemoglobin 10.7, hematocrit 34.4, and platelets 212,000. BMP revealed a sodium of 137, potassium 4.9, chloride 101, CO2 of 29, BUN 37, creatinine 1.66, GFR 45.4, fasting glucose 320, calcium 9.1. Serum magnesium is 2.4. Liver enzymes revealed a total bilirubin 0.4, AST 6, ALT 15, alkaline phosphatase 80, total bilirubin 7.3, and albumin 3.4. Serum troponin has been negative. Echocardiogram revealed a severely depressed global left ventricular systolic function, estimated ____ 25%. Formal report is pending. IMPRESSION: 1. Atrial fibrillation/flutter, now under control with a small dose of the beta yang/metoprolol tartrate, and we will continue the same. He is currently on dual-antibiotic therapy and Eliquis, and today we have discontinued the aspirin. This was discussed with his hospitalist. 2. Congestive heart failure, acute, related to a severely depressed global left ventricular systolic function. The etiology is not quite clear. He denies any chest pain, and a serum troponin is negative. This may be tachycardia induced. His heart rate is under control for now. Tomorrow, when his primary newspaper or periodical editor is back, he may be started on ____ or his KAYA inhibitor or on an angiotensin-receptor yang (ARB). He was hyperkalemic yesterday, but today his serum potassium was 4.9. In the past, he was on spironolactone; that was probably a contributing factor. 3. History of coronary artery disease (CAD), and this is currently stable. Further cardiac workup as per Dr. Mendoza, his primary newspaper or periodical editor. History of cerebrovascular accidents (CVAs). 4. History of hypertension. 5. Hyperlipidemia, on a statin. It was a pleasure to participate in the care of Mr. Deni Perdomo for his underlying cardiac condition. His condition has improved significantly since hospitalization. We will continue current management, and the immediate plan is to start him on more guided medical therapy for his left ventricular systolic dysfunction. In the future, he will need further cardiac workup and might need an automatic implantable cardioverter defibrillator (AICD), but we will continue to follow with his primary newspaper or periodical editor, Dr. Mendoza.
--- NOTE | 2021-01-15 13:13 | DS.PDOC ---
Discharge Summary General Date of Admission Jan 10, 2021 at 01:22 Date of Discharge 01/13/21 Discharge Summary PROCEDURES PERFORMED DURING STAY: None DISCHARGE DIAGNOSES: Atrial flutter with RVR new onset Systolic CHF exacerbation with EF of 25% COPD exacerbation JAKOB S[facility] SECONDARY DIAGNOSIS: Systolic CHF, COPD w chronic O2 dependent respiratory failure, CAD w placement of 2 stents, Chronic right occipital, left pontine, left cerebellar CVAs w with 75% stenosis of the left distal vertebral and basal arteries, Essential HTN, Incidental 3.2 cm infrarenal abdominal aortic aneurysm, Class 1 obesity, CHRISTINA, Nephrolithiasis, Bipolar disorder ?, appendectomy, loop recorder implantation, GERD COMPLICATIONS/CHIEF COMPLAINT: Dyspnea. HOSPITAL COURSE: 60 yo M, with a PMHx of COPD wit O2 dependent respiratory failure, chronic HFpEF, CAD s/p 2 stends, Multiple region CVAs (R occipital, L pontine, L cerebellar, with 75% stenosis L distal vertebral and basal arteries), HTN, CHRISTINA, loop recorder for suspect tachyarrhythmias, infrarenal AAA. Admitted for rapid aflutter suspected to be due to acute COPD exacerbation. Aflutter with RVR appears to be a new diagnosis, but patient has a loop recorder in place rate was controlled initially with IV digoxin, cardizem and amiodarone Now rate controlled with metoprolol only 25 mg bid started on eliquis Acute on chronic Systolic CHF. EF of 25% down from 50% in sep 2020 started on entresto on 01/12/21, 72 hours after DC of lisinopril lisinopril dced. continue lasix. 40 mg daily f/u with Dr. Mendoza. Acute COPD exacerbation on chronic O2 dependent respiratory failure resolved. will continue home meds spiriva and albuterol JAKOB improved due to CHF exacerbation renal US showing possible calculus without hydronephrosis continue lasix. Macrocytic Anemia hgb stable CAD w placement of 2 stents continued with ASA and Eliquis dced the plavix. Chronic right occipital, left pontine, left cerebellar CVAs w with 75% stenosis of the left distal vertebral and basal arteries c/w asa and eliquis Essential HTN on entresto and metoprolol Class 1 obesity with CHRISTINA Complicates care compliant with CPAP hx of keratitis needs to f/u with ophthalmology c/w artificial tears. DISCHARGE MEDICATIONS: Please see below. ALLERGIES: Please see below. PHYSICAL EXAMINATION ON DISCHARGE: VITAL SIGNS: Please see below. General: NAD, comfortable HEENT: PERRLA, EOMI, sclerae clear Neck: supple, normal ROM, no JVD Respiratory: reduced air entry bilaterally, resolved inspiratory wheeze, no rales, no crackles appreciated. CVS: RRR, normal S1, S2, no murmurs Abdo: soft, no masses, no hepatosplenomegaly, BS+, no rebound tenderness Extremities: no edema, pulses 2+ MSK: no joint deformities, normal ROM Neuro: no focal neuro deficits, moving all 4 extremities, CN2-12 intact. Strength 5/5 in all 4 extremities. No nystagmus. Psych: calm, cooperative, AAO x 3 LABORATORY DATA: Please see below. IMAGING: ECHO: PROCEDURES PERFORMED DURING STAY: Echo: 2D MEASUREMENTS: IVS 1.3 cm LV 7.6 cm LVPW 1.3 cm LA 5.7 cm Aorta 3.8 cm IVC 2.5 cm DOPPLER MEASUREMENT Peak velocity across the LVOT 0.95 m/s 2D COMMENTS: 1. Markedly enlarged left ventricle with preserved left ventricular wall thickness but a severely depressed global left ventricular systolic function. The estimated left ventricular systolic ejection fraction is 25%. 2. Moderately enlarged left atrium. The right atrium and the right ventricle appeared to be normal in size. 3. The atrial septum appeared to be normal without evidence of defect or shunt. 4. Mildly dilated aortic root. 5. Mildly calcified aortic valve with normal leaflet excursion. Mildly calcified mitral annulus with normal anterior mitral valve leaflet motion. Normal tricuspid valve and pulmonic valve. The proximal pulmonary artery branches also appeared to be normal. 6. The inferior vena cava is dilated, central venous pressure is most likely elevated. 7. A small pericardial effusion was noted, no evidence of cardiac tamponade. DOPPLER: It detects trace aortic regurgitation, moderate mitral regurgitation, trace tricuspid regurgitation. Pulmonary artery systolic pressure is probably normal. Assessment of the left ventricular diastolic function was limited in view of the underlying arrhythmias. IMPRESSION: 1. Severely depressed global left ventricular systolic dysfunction with a markedly dilated left ventricle and diffuse hypokinesis. Assessment of the left ventricular diastolic function was limited. 2. Aortic valve sclerosis without stenosis. Trace aortic regurgitation detected. 3. Mitral annulus calcification with moderately enlarged left atrium and moderate mitral regurgitation. 4. Trace tricuspid regurgitation. 5. A small pericardial effusion was noted, no evidence of cardiac tamponade. ACTIVITY: [As tolerated]. DIET: 2 gm sodium, fluid restriction 1.8 liters. DISPOSITION: 01 Home, Self-Care. DISCHARGE INSTRUCTIONS: PMD in 1 week, Dr Mendoza in 1 to 2 weeks DISCHARGE CONDITION: [Stable]. TIME SPENT ON DISCHARGE: 35 minutes. Vital Signs/I&Os Vital Signs Date Time Temp Pulse Resp B/P (MAP) Pulse Ox O2 Delivery O2 Flow Rate FiO2 01/13/21 12:00 4.0 01/13/21 12:00 106 120/60 01/13/21 08:00 98.3 19 96 Nasal Cannula 01/10/21 06:00 40 Microbiology Microbiology 01/10/21 Blood Culture - Final, Complete NO GROWTH AFTER 5 DAYS 01/09/21 Respiratory Virus Panel (PCR) (MARY) - Final, Complete Discharge Medications Scheduled Albuterol Sulfate (Proventil Hfa) 6.7 Gm Hfa.aer.ad, 2 PUFF INH QID for wheezing Apixaban (Eliquis) 5 Mg Tablet, 5 MG PO BID Aspirin (Ecotrin) 81 Mg Tablet.dr, 81 MG PO DAILY, (Reported) Atorvastatin Calcium (Atorvastatin Calcium) 40 Mg Tablet, 40 MG PO DAILY, (Reported) Furosemide (Furosemide) 20 Mg Tablet, 40 MG PO DAILY Metoprolol Tartrate (Metoprolol Tartrate) 25 Mg Tablet, 1 TAB PO BID Pantoprazole Sodium (Pantoprazole Sodium) 40 Mg Tablet.dr, 40 MG PO DAILY, (Reported) Sacubitril/Valsartan (Entresto 24 mg-26 mg Tablet) 1 Each Tablet, 1 TAB PO BID Spironolactone (Spironolactone) 25 Mg Tablet, 25 MG PO DAILY, (Reported) Tiotropium [place] (Spiriva) 18 Mcg Cap.w.dev, 1 PUFF INH DAILY, (Reported) Allergies Coded Allergies: fentanyl (Verified Allergy, Severe, looses his mind, 12/11/20) codeine (Verified Allergy, Intermediate, rash, 12/11/20) MARIANA MAS MD Jan 15, 2021 13:13
== END 2021-01-13 12:19 | disposition home or self-care (01) | DRG 201 ==
LOC: M ED 22:18 → M ED INP 01-10 01:22 → ENRESERV 01-10 02:22 → M ICU 01-10 04:14 → M PCU 01-11 16:00
PROVIDERS: ADMIT Internal Medicine; ATTEND Internal Medicine Nephrology
DX: I48.92 Unspecified atrial flutter (principal); I50.33 Acute on chronic diastolic (congestive) heart failure; N17.9 Acute kidney failure, unspecified; J96.11 Chronic respiratory failure with hypoxia; I11.0 Hypertensive heart disease with heart failure; Z99.81 Dependence on supplemental oxygen; J44.1 Chronic obstructive pulmonary disease with (acute) exacerbation; I25.10 Atherosclerotic heart disease of native coronary artery without angina pectoris; Z95.5 Presence of coronary angioplasty implant and graft; Z86.73 Personal history of transient ischemic attack (TIA), and cerebral infarction without residual deficits; I71.4 Abdominal aortic aneurysm, without rupture; E66.9 Obesity, unspecified; G47.33 Obstructive sleep apnea (adult) (pediatric); F31.9 Bipolar disorder, unspecified; Z90.49 Acquired absence of other specified parts of digestive tract; Z95.818 Presence of other cardiac implants and grafts; Z87.891 Personal history of nicotine dependence; D53.9 Nutritional anemia, unspecified; Z68.34 Body mass index [BMI] 34.0-34.9, adult; Z79.899 Other long term (current) drug therapy; Z79.82 Long term (current) use of aspirin; Z88.5 Allergy status to narcotic agent; Z88.8 Allergy status to other drugs, medicaments and biological substances; E78.5 Hyperlipidemia, unspecified; D72.829 Elevated white blood cell count, unspecified; H16.9 Unspecified keratitis

== ENCOUNTER 2021-02-23 13:13 | Emergency (ER) | payer OTHER ==
[~2021-02-23] VITALS: Ht 188 cm; Wt 118.7 kg
[~2021-02-23 13:13] MED LIST changes: +ECOT81TA5 PO; +ELIQ5TAB PO; +ENTR1TAB PO; +FURO20TA2 PO; +METO1TAB87 PO; +PANT-23 PO
[2021-02-23] MEDS ORDERED: IPRATROPIUM 0.5MG/ALBUTEROL 2.5MG INH SOL UD 3ML (DUONEB) NEB ONE (14:10)
[2021-02-23 14:11] LABS: VENOUS BASE EXCESS 3.8 (-2.0-2.0); VENOUS HCO3 29.9 MEQ/L (23.0-27.0); VENOUS O2 SATURATION 96.7 % (60.0-80.0); VENOUS PARTIAL PRESSURE CO2 51.9 mmHg (38.0-50.0); VENOUS PARTIAL PRESSURE O2 91.9 mmHg (30.0-50.0); VENOUS PH 7.379 UNITS (7.330-7.430); VENOUS STANDARD HCO3 27.8 MEQ/L; VENOUS TOTAL CO2 31.5 MEQ/L (24.0-28.0)
[2021-02-23 14:18] LABS: BASO % 0.5 % (0.0-1.0); EOS # 0.1 10^3/uL (0.0-0.5); EOS % 1.3 % (0.0-3.0); HEMATOCRIT 37.8 % (42.0-52.0); HEMOGLOBIN 11.7 g/dl (13.5-17.5); LYMPH # 1.9 10^3/uL (1.5-5.0); MEAN CORPUSCULAR HEMOGLOBIN 30.6 pg (27.0-33.0); MONO # 1.2 10^3/uL (0.0-0.8); NEUTROPHILS # 5.1 10^3/uL (1.5-8.5); NEUTROPHILS % 60.7 % (36.0-66.0); PLATELET COUNT, AUTOMATED 294 10^3/uL (150-450); RED BLOOD COUNT 3.82 10^6/uL (4.30-6.10); WHITE BLOOD COUNT 8.3 10^3/uL (4.0-10.0)
--- NOTE | 2021-02-23 14:19 | REP ---
INDICATION: DYSPNEA/COUGH. COMPARISON: Comparison portable chest x-ray January 09, 2021. TECHNIQUE: Portable upright AP chest radiograph. FINDINGS: There is a new infiltrate in the right upper lobe consistent with pneumonia. There is blunting of the left lateral pleural angle. Cardiomegaly is again observed moderate in degree. Pulmonary vascular cephalization is noted. No right pleural effusion is seen. EKG electrodes and a loop recorder are visualized.. IMPRESSION: New right upper lobe infiltrate consistent with pneumonia. CHF pattern.. <Electronically signed by Warren Garcia > 02/23/21 [id number]
[2021-02-23 14:32] LABS: PARTIAL THROMBOPLASTIN TIME 34.8 SECONDS (24.2-38.5)
[2021-02-23 14:34] LABS: D-DIMER QUANT 887.79 ng/ml (<500)
[2021-02-23] MEDS ORDERED: METO1TAB87 PO (14:45)
[2021-02-23] MEDS ORDERED: FARX1TAB3 PO (14:45)
[2021-02-23] MEDS ORDERED: ENTR1TAB PO (14:45)
[2021-02-23] MEDS ORDERED: FURO20TA2 PO (14:45)
[2021-02-23] MEDS ORDERED: ELIQ5TAB PO (14:45)
[2021-02-23] MEDS ORDERED: BISO5TAB14 PO (14:45)
[2021-02-23] MEDS ORDERED: VENTAER INH (14:45)
[2021-02-23 14:51] LABS: ABG BASE EXCESS 4.3 (-2.0-2.0); ABG HCO3 29.3 MEQ/L (22.0-26.0); ABG O2 SATURATION 91.1 % (95.0-99.0); ABG PARTIAL PRESSURE CO2 45.5 mmHg (35.0-45.0); ABG PARTIAL PRESSURE O2 57.8 mmHg (75.0-100.0); ABG STANDARD HCO3 28.2 MEQ/L (22.0-26.0); ABG TOTAL CO2 30.7 MEQ/L (22.0-29.0); ABG pH (ARTERIAL) 7.427 UNITS (7.350-7.450)
[2021-02-23 14:51] LABS: ALBUMIN 3.4 GM/DL (3.2-5.2); ALT/SGPT 15 U/L (12-78); BILIRUBIN,DIRECT 0.1 MG/DL (0.0-0.2); BILIRUBIN,TOTAL 0.6 MG/DL (0.2-1.0); BLOOD UREA NITROGEN 23 MG/DL (7-18); CALCIUM LEVEL 8.8 MG/DL (8.5-10.1); CARBON DIOXIDE LEVEL 31 MEQ/L (21-32); CHLORIDE LEVEL 99 MEQ/L (98-107); CK-MB VALUE MASS < 1.0 NG/ML (<3.6); CPK CREATINE PHOSPHOKINASE 124 U/L (39-308); CREATININE FOR GFR 1.28 MG/DL (0.70-1.30); GLOMERULAR FILTRATION RATE > 60.0 (>56); GLUCOSE, FASTING 170 MG/DL (70-100); MB/CK RELATIVE INDEX 0.81 (< OR =4); NT-PRO BNP 5025 PG/ML (<125); POTASSIUM SERUM 5.9 MEQ/L (3.5-5.1); SODIUM LEVEL 133 MEQ/L (136-145); TOTAL PROTEIN 7.4 GM/DL (6.4-8.2); TROPONIN I < 0.02 NG/ML (< 0.10)
[2021-02-23] MEDS ORDERED: cefTRIAXone SOD 1 GM in D5W MINI-BAG PLUS 50 ML IV ONE (15:00)
[2021-02-23 15:11] LABS: RSV AMPLIFICATION NEGATIVE (NEGATIVE)
[2021-02-23] MEDS ORDERED: predniSONE 20 MG TAB PO ONE (15:15)
[2021-02-23] MEDS ORDERED: FUROSEMIDE 40MG/4ML VIAL (J1940) IV ONE (15:30)
[2021-02-23] MEDS ORDERED: AZITHROMYCIN INJ 500 MG, VIAL MATE ADAPTER 1 EACH in NS 250 ML IV ONE (16:00)
[2021-02-23 16:38] VITALS: BP 112/78
[2021-02-23] MEDS ORDERED: SYMBICORT 160/4.5MCG INHALER 6GM INH SCH (20:00)
--- NOTE | 2021-02-23 20:40 | ECGEPIP ---
[facility] - ED Test Date: 2021-02-23 Pat Name: ELIEZER SEN Department: Room: - Gender: Male [employer]: DIOMEDES : 1960 Requested By: Ginny Hodge Order Number: [id number] Reading MD: Ginny Hodge Measurements Intervals [place] Rate: 117 P: 216 LA: QRS: -33 QRSD: 96 T: 37 QT: 348 QTc: 485 Interpretive Statements Atrial flutter with variable AV block Left axis deviation Inferior infarct , age undetermined Anterolateral infarct , age undetermined Electronically Signed on 02-23-2021 20:40:24 EDT by Ginny Hodge
== END 2021-02-23 16:41 | disposition short-term general hospital (02) ==
LOC: M ED 13:13 → CANBEDREQ 14:53 → M ED 16:41
DX: I50.9 Heart failure, unspecified (principal); J44.0 Chronic obstructive pulmonary disease with (acute) lower respiratory infection; J18.9 Pneumonia, unspecified organism; K21.9 Gastro-esophageal reflux disease without esophagitis; I48.92 Unspecified atrial flutter; F41.9 Anxiety disorder, unspecified; I10 Essential (primary) hypertension; E11.9 Type 2 diabetes mellitus without complications; Z79.899 Other long term (current) drug therapy; Z79.82 Long term (current) use of aspirin; Z79.01 Long term (current) use of anticoagulants; Z99.81 Dependence on supplemental oxygen; Z87.891 Personal history of nicotine dependence
CPT/HCPCS: 36600; 71045; 80048; 80076; 82550; 82553; 82803; 83880; 85025; 85379; 85730; 87631; 93005; 93041; 94760; 96365; 96375; 99284; J0696; J1940; J7512

== ENCOUNTER → 2021-03-24 | Outpatient (CLI) | payer OTHER ==
[~2021-03-24] MED LIST changes: +BISO5TAB14 PO; +FARX1TAB3 PO; +VENTAER INH
--- NOTE | 2021-03-24 10:37 | REP ---
INDICATION: J44.9, COPD COMPARISON: 02/23/2021 TECHNIQUE: PA and lateral. FINDINGS: The mediastinum and cardiac silhouette are stable. The lung jones demonstrate chronic appearing interstitial changes and the previously noted right upper lobe infiltrate has resolved. No acute consolidation. No effusion. No pneumothorax. The skeletal structures are intact and normal. IMPRESSION: Stable chronic changes. Previous right upper lobe infiltrate resolved. <Electronically signed by Jack Castellon > 03/24/21 [id number]
== END ==
LOC: M CLY 10:02
PROVIDERS: ATTEND Family Medicine
DX: J44.9 Chronic obstructive pulmonary disease, unspecified (principal)

== ENCOUNTER → 2021-05-14 | Outpatient (REF) | payer OTHER ==
[2021-05-14 16:43] LABS: CREATININE FOR GFR 1.48 MG/DL (0.70-1.30); GLOMERULAR FILTRATION RATE 51.8 (>56); POTASSIUM SERUM 5.3 MEQ/L (3.5-5.1)
== END ==
LOC: M LABDRAWC 15:37
PROVIDERS: ATTEND Nurse Practitioner Family
DX: I50.22 Chronic systolic (congestive) heart failure (principal)

== ENCOUNTER → 2021-06-10 | Outpatient (REF) | payer OTHER ==
[2021-06-11 12:58] LABS: HEMOGLOBIN A1c 8.6 %
== END ==
LOC: M SFHCCLAY 13:57
PROVIDERS: ATTEND Family Medicine
DX: E11.9 Type 2 diabetes mellitus without complications (principal)

== ENCOUNTER 2021-12-08 16:49 | Emergency (ER) | payer OTHER ==
[~2021-12-08] VITALS: Ht 188 cm; Wt 139.1 kg
[~2021-12-08 16:49] MED LIST changes: +FLUO-96 PO; -FLUO20CA20 PO
[2021-12-08 17:06] VITALS: BP 106/61
[2021-12-08 18:40] LABS: HEMATOCRIT 36.3 % (42.0-52.0); HEMOGLOBIN 11.6 g/dl (13.5-17.5); MEAN CORPUSCULAR HEMOGLOBIN 32.6 pg (27.0-33.0); PLATELET COUNT, AUTOMATED 235 10^3/uL (150-450); RED BLOOD COUNT 3.56 10^6/uL (4.30-6.10); WHITE BLOOD COUNT 13.4 10^3/uL (4.0-10.0)
[2021-12-08 19:02] LABS: CALCIUM LEVEL 9.4 MG/DL (8.8-10.2); CREATININE FOR GFR 2.88 MG/DL (0.70-1.30); GLOMERULAR FILTRATION RATE 23.9 (>49); POTASSIUM SERUM 5.2 MEQ/L (3.5-5.1)
== END 2021-12-08 20:23 | disposition left against medical advice (07) ==
LOC: EDBD 16:49 → M ED 16:49
DX: N17.9 Acute kidney failure, unspecified (principal); T67.5XXA Heat exhaustion, unspecified, initial encounter; J44.9 Chronic obstructive pulmonary disease, unspecified; I50.9 Heart failure, unspecified; I48.91 Unspecified atrial fibrillation; I25.2 Old myocardial infarction; K21.9 Gastro-esophageal reflux disease without esophagitis; E66.9 Obesity, unspecified; Z95.0 Presence of cardiac pacemaker; Z95.5 Presence of coronary angioplasty implant and graft; Z79.899 Other long term (current) drug therapy; Z79.82 Long term (current) use of aspirin; Z79.01 Long term (current) use of anticoagulants; Z88.5 Allergy status to narcotic agent; Z87.891 Personal history of nicotine dependence

== ENCOUNTER → 2021-12-23 | Outpatient (CLI) | payer OTHER ==
[2021-12-23 13:43] LABS: CALCIUM LEVEL 9.8 MG/DL (8.8-10.2); CREATININE FOR GFR 1.48 MG/DL (0.70-1.30); GLOMERULAR FILTRATION RATE 51.6 (>49); POTASSIUM SERUM 5.1 MEQ/L (3.5-5.1)
== END ==
LOC: M PLALAB 10:14
PROVIDERS: ATTEND Nurse Practitioner Family
DX: I50.22 Chronic systolic (congestive) heart failure (principal)

== ENCOUNTER 2022-07-19 11:14 | Inpatient (IN) | payer OTHER ==
[~2022-07-19] VITALS: Ht 188 cm; Wt 127.1 kg
[~2022-07-19 11:14] MED LIST changes: +ALBU6.7H6 INH; +CLOP75TA99 PO; -DOXY-350 PO; +DOXY-444 PO; -PLAV1TAB2 PO; -PROV108A INH
[2022-07-19 11:52] LABS: VENOUS BASE EXCESS 4.1 (-2.0-2.0); VENOUS HCO3 32.2 MEQ/L (23.0-27.0); VENOUS O2 SATURATION 78.5 % (60.0-80.0); VENOUS PARTIAL PRESSURE CO2 66.1 mmHg (38.0-50.0); VENOUS PARTIAL PRESSURE O2 43.9 mmHg (30.0-50.0); VENOUS PH 7.305 UNITS (7.330-7.430); VENOUS STANDARD HCO3 27.7 MEQ/L; VENOUS TOTAL CO2 34.2 MEQ/L (24.0-28.0)
[2022-07-19 11:57] LABS: BASO # 0.1 10^3/uL (0.0-0.2); BASO % 0.4 % (0.0-1.0); EOS # 0.1 10^3/uL (0.0-0.5); EOS % 0.4 % (0.0-3.0); HEMATOCRIT 36.4 % (42.0-52.0); HEMOGLOBIN 10.9 g/dl (13.5-17.5); LYMPH # 1.9 10^3/uL (1.5-5.0); LYMPH % 12.5 % (24.0-44.0); MEAN CORPUSCULAR HEMOGLOBIN 31.4 pg (27.0-33.0); MEAN CORPUSCULAR HGB CONC 29.9 g/dl (32.0-36.5); MEAN CORPUSCULAR VOLUME 104.9 fl (80.0-96.0); MONO # 1.2 10^3/uL (0.0-0.8); MONO % 7.5 % (2.0-8.0); NEUTROPHILS % 78.3 % (36.0-66.0); PLATELET COUNT, AUTOMATED 261 10^3/uL (150-450); RED BLOOD COUNT 3.47 10^6/uL (4.30-6.10); WHITE BLOOD COUNT 15.3 10^3/uL (4.0-10.0)
[2022-07-19 12:26] LABS: ALKALINE PHOSPHATASE 80 U/L (46-116); ALT/SGPT 13 U/L (7.0-40); AST/SGOT 14 U/L (<34); BILIRUBIN,DIRECT 0.3 MG/DL (<0.4); BILIRUBIN,TOTAL 0.6 MG/DL (0.3-1.2); BLOOD UREA NITROGEN 17 MG/DL (9-23); CALCIUM LEVEL 8.8 MG/DL (8.3-10.6); CARBON DIOXIDE LEVEL 31 MMOL/L (20-31); CHLORIDE LEVEL 98 MMOL/L (98-107); GLOMERULAR FILTRATION RATE > 60.0 (>49); GLUCOSE, FASTING 165 MG/DL (74-106); POTASSIUM SERUM 4.6 MMOL/L (3.5-5.1); SODIUM LEVEL 137 MMOL/L (136-145); TOTAL PROTEIN 6.8 G/DL (5.7-8.2)
[2022-07-19] MEDS ORDERED: IPRATROPIUM 0.5MG/ALBUTEROL 2.5MG INH SOL UD 3ML (DUONEB) NEB ONE (12:30)
[2022-07-19] MEDS ORDERED: methylPREDNISolone 125MG 2ML VIAL IV ONE (12:30)
[2022-07-19] MEDS ORDERED: ALBUTEROL SULFATE 2.5MG/0.5ML INH NEB SOLN INH ONE (12:30)
[2022-07-19 12:31] LABS: RSV AMPLIFICATION POSITIVE (NEGATIVE)
[2022-07-19 12:43] LABS: CK-MB VALUE MASS < 1.0 NG/ML (<3.6); CPK CREATINE PHOSPHOKINASE 44 U/L (46-171); MB/CK RELATIVE INDEX 2.27 (< OR =4)
[2022-07-19 12:47] LABS: THYROID STIMULATING HORMONE 1.513 uIU/ML (0.55-4.78)
[2022-07-19] MEDS ORDERED: ATOR80TA59 PO (13:58)
[2022-07-19] MEDS ORDERED: METO1TAB7 PO (13:58)
[2022-07-19] MEDS ORDERED: MIDO10TA PO (13:58)
[2022-07-19] MEDS ORDERED: FLUO20CA22 PO (13:58)
[2022-07-19] MEDS ORDERED: CLOP75TA99 PO (13:58)
[2022-07-19] MEDS ORDERED: DULA4.5P SC (13:58)
[2022-07-19] MEDS ORDERED: HOME MED LIST COMPLETE! XX SCH (14:00)
[2022-07-19] MEDS ORDERED: GLUCAGON INJ 1MG VIAL SC PRN (14:10)
[2022-07-19] MEDS ORDERED: DEXTROSE 50% 50ML SYRINGE IV PRN (14:10)
[2022-07-19] MEDS ORDERED: ACETAMINOPHEN TAB 650MG DOSE (2X325MG) PO PRN (14:10)
[2022-07-19] MEDS ORDERED: ALBUTEROL SULFATE 2.5MG/0.5ML INH NEB SOLN NEB PRN (14:10)
[2022-07-19] MEDS ORDERED: GLUCOSE 4GM CHEW TABLET PO PRN (14:10)
[2022-07-19 15:43] LABS: INR 1.26; PROTHROMBIN TIME 16.1 SECONDS (12.5-14.5)
[2022-07-19 15:44] LABS: PARTIAL THROMBOPLASTIN TIME 33.4 SECONDS (24.8-34.2)
[2022-07-19] MEDS: IPRATROPIUM 0.5MG/ALBUTEROL 2.5MG INH SOL UD 3ML (DUONEB) NEB SCH ×2 (16:13→19:56)
[2022-07-19 16:18] VITALS: O2SAT 96
[2022-07-19 16:55] VITALS: BP 143/74
[2022-07-19] MEDS: INSULIN LISPRO (NovoLOG) PER UNIT SC SCH ×2 (18:05→22:49)
[2022-07-19 20:20] VITALS: BP 95/58
[2022-07-19 22:23] VITALS: BP 110/65
[2022-07-19] MEDS: APIXABAN 5 MG TAB (ELIQUIS) PO SCH (22:50)
[2022-07-19] MEDS: ENTRESTO 24-26MG TABLET (SACUBITRIL/VALSARTAN) PO SCH (22:50)
[2022-07-19] MEDS: guaiFENesin ER 600 MG TAB PO SCH (22:50)
[2022-07-19] MEDS: METOPROLOL SUCC *XL* 25MG TAB (TopROL *XL*) PO SCH (22:51)
[2022-07-20] VITALS (7 sets, daily range): BP systolic 98–112; BP diastolic 55–71; O2SAT 96–97
[2022-07-20] MEDS: methylPREDNISolone 125MG 2ML VIAL IV SCH ×2 (01:19→12:49)
[2022-07-20 05:22] LABS: HEMATOCRIT 36.3 % (42.0-52.0); HEMOGLOBIN 11.1 g/dl (13.5-17.5); MEAN CORPUSCULAR HEMOGLOBIN 31.6 pg (27.0-33.0); MEAN CORPUSCULAR HGB CONC 30.6 g/dl (32.0-36.5); MEAN CORPUSCULAR VOLUME 103.4 fl (80.0-96.0); PLATELET COUNT, AUTOMATED 268 10^3/uL (150-450); RED BLOOD COUNT 3.51 10^6/uL (4.30-6.10); WHITE BLOOD COUNT 11.4 10^3/uL (4.0-10.0)
[2022-07-20 06:06] LABS: ALBUMIN 3.1 G/DL (3.2-5.2); BILIRUBIN,TOTAL 0.4 MG/DL (0.3-1.2); CALCIUM LEVEL 8.8 MG/DL (8.3-10.6); CREATININE FOR GFR 1.39 MG/DL (0.70-1.30); GLOMERULAR FILTRATION RATE 55.5 (>49); POTASSIUM SERUM 4.5 MMOL/L (3.5-5.1); TOTAL PROTEIN 7.1 G/DL (5.7-8.2)
[2022-07-20] MEDS: IPRATROPIUM 0.5MG/ALBUTEROL 2.5MG INH SOL UD 3ML (DUONEB) NEB SCH ×4 (07:51→19:17)
[2022-07-20] MEDS: TIOTROPIUM INHALER/CAPSULE (SPIRIVA) INH SCH (07:52)
[2022-07-20] MEDS: CLOPIDOGREL 75 MG TAB PO SCH (09:00)
[2022-07-20] MEDS: FUROSEMIDE 20 MG TAB PO SCH (09:00)
[2022-07-20] MEDS: FLUoxetine 20MG CAP PO SCH (09:00)
[2022-07-20] MEDS: PANTOPRAZOLE 40MG TAB (PROTONIX) PO SCH (09:00)
[2022-07-20] MEDS: SPIRONOLACTONE 25 MG TAB PO SCH (09:00)
[2022-07-20] MEDS: APIXABAN 5 MG TAB (ELIQUIS) PO SCH ×2 (09:00→21:10)
[2022-07-20] MEDS: INSULIN LISPRO (NovoLOG) PER UNIT SC SCH ×4 (10:01→21:10)
[2022-07-20] MEDS: ATORVASTATIN 20 MG TAB PO SCH (10:02)
[2022-07-20] MEDS: DAPAGLIFLOZIN PROPANEDIOL 10MG TABLET (FARXIGA) PO SCH (10:02)
[2022-07-20] MEDS: guaiFENesin ER 600 MG TAB PO SCH ×2 (10:02→21:10)
[2022-07-20] MEDS: ENTRESTO 24-26MG TABLET (SACUBITRIL/VALSARTAN) PO SCH ×2 (10:02→21:10)
[2022-07-20] MEDS: ASPIRIN 81MG ENTERIC TABLET PO SCH (10:02)
[2022-07-20] MEDS: MIDODRINE 5 MG TAB PO SCH (10:03)
[2022-07-20] MEDS: METOPROLOL SUCC *XL* 25MG TAB (TopROL *XL*) PO SCH ×2 (10:03→21:00)
[2022-07-21] MEDS: methylPREDNISolone 125MG 2ML VIAL IV SCH ×2 (00:44→12:26)
[2022-07-21 04:41] VITALS: BP_SYST 109; BP_SYST 97; BP_DIAS 56; BP_DIAS 67
[2022-07-21 05:30] LABS: HEMATOCRIT 33.5 % (42.0-52.0); HEMOGLOBIN 10.3 g/dl (13.5-17.5); MEAN CORPUSCULAR HEMOGLOBIN 31.5 pg (27.0-33.0); MEAN CORPUSCULAR HGB CONC 30.7 g/dl (32.0-36.5); MEAN CORPUSCULAR VOLUME 102.4 fl (80.0-96.0); PLATELET COUNT, AUTOMATED 253 10^3/uL (150-450); RED BLOOD COUNT 3.27 10^6/uL (4.30-6.10); WHITE BLOOD COUNT 16.1 10^3/uL (4.0-10.0)
[2022-07-21 06:10] LABS: ALBUMIN 2.9 G/DL (3.2-5.2); ALKALINE PHOSPHATASE 67 U/L (46-116); ALT/SGPT 11 U/L (7.0-40); AST/SGOT 10 U/L (<34); BILIRUBIN,TOTAL 0.3 MG/DL (0.3-1.2); BLOOD UREA NITROGEN 44 MG/DL (9-23); CALCIUM LEVEL 8.6 MG/DL (8.3-10.6); CARBON DIOXIDE LEVEL 29 MMOL/L (20-31); CHLORIDE LEVEL 100 MMOL/L (98-107); CREATININE FOR GFR 1.21 MG/DL (0.70-1.30); GLOMERULAR FILTRATION RATE > 60.0 (>49); GLUCOSE, FASTING 252 MG/DL (74-106); POTASSIUM SERUM 4.4 MMOL/L (3.5-5.1); SODIUM LEVEL 138 MMOL/L (136-145); TOTAL PROTEIN 6.2 G/DL (5.7-8.2)
[2022-07-21] MEDS: TIOTROPIUM INHALER/CAPSULE (SPIRIVA) INH SCH (07:19)
[2022-07-21] MEDS: INSULIN LISPRO (NovoLOG) PER UNIT SC SCH ×2 (07:30→12:32)
[2022-07-21 07:37] LABS: ATYPICAL LYMPH 2 % (0-5); LYMPHOCYTES 9 % (16-44); MONOCYTES 4 % (0-5); NEUTROPHILS 83 % (28-66); PLATELET ESTIMATE NORMAL (NORMAL)
[2022-07-21 07:38] LABS: ANISOCYTOSIS 1+
[2022-07-21 08:00] VITALS: BP 99/57
[2022-07-21] MEDS: IPRATROPIUM 0.5MG/ALBUTEROL 2.5MG INH SOL UD 3ML (DUONEB) NEB SCH ×2 (08:00→12:00)
[2022-07-21] MEDS: ASPIRIN 81MG ENTERIC TABLET PO SCH (08:51)
[2022-07-21] MEDS: PANTOPRAZOLE 40MG TAB (PROTONIX) PO SCH (08:51)
[2022-07-21] MEDS: ENTRESTO 24-26MG TABLET (SACUBITRIL/VALSARTAN) PO SCH (08:51)
[2022-07-21] MEDS: DAPAGLIFLOZIN PROPANEDIOL 10MG TABLET (FARXIGA) PO SCH (08:51)
[2022-07-21] MEDS: CLOPIDOGREL 75 MG TAB PO SCH (08:52)
[2022-07-21] MEDS: APIXABAN 5 MG TAB (ELIQUIS) PO SCH (08:52)
[2022-07-21] MEDS: ATORVASTATIN 20 MG TAB PO SCH (08:52)
[2022-07-21] MEDS: MIDODRINE 5 MG TAB PO SCH (08:52)
[2022-07-21] MEDS: FUROSEMIDE 20 MG TAB PO SCH (08:52)
[2022-07-21] MEDS: FLUoxetine 20MG CAP PO SCH (08:52)
[2022-07-21 08:53] VITALS: BP 99/57
[2022-07-21] MEDS: guaiFENesin ER 600 MG TAB PO SCH (08:53)
[2022-07-21] MEDS: METOPROLOL SUCC *XL* 25MG TAB (TopROL *XL*) PO SCH (08:53)
[2022-07-21] MEDS: SPIRONOLACTONE 25 MG TAB PO SCH (08:53)
[2022-07-21 11:35] VITALS: BP 120/65
[2022-07-21] MEDS ORDERED: GUAI400T9 PO (12:00)
[2022-07-21] MEDS ORDERED: PRED20TA PO ×2 (12:00)
[2022-07-21] MEDS ORDERED: AZITHROMYCIN 250MG TABLET PO ONE (12:00)
[2022-07-21] MEDS ORDERED: AZIT-12 PO (12:00)
[2022-07-21] MEDS ORDERED: AZIT500T5 PO (12:00)
[2022-07-21] MEDS ORDERED: ALBU8.5H INH (12:00)
== END 2022-07-21 14:50 | disposition home or self-care (01) | DRG 133 ==
LOC: M ED 11:14 → M ED INP 14:08 → ENRESERV 14:57 → M PCU 16:55
PROVIDERS: ADMIT Internal Medicine; ATTEND Family Medicine
DX: J96.22 Acute and chronic respiratory failure with hypercapnia (principal); N17.9 Acute kidney failure, unspecified; I11.0 Hypertensive heart disease with heart failure; Z99.81 Dependence on supplemental oxygen; J44.1 Chronic obstructive pulmonary disease with (acute) exacerbation; B97.4 Respiratory syncytial virus as the cause of diseases classified elsewhere; I50.22 Chronic systolic (congestive) heart failure; I25.10 Atherosclerotic heart disease of native coronary artery without angina pectoris; I71.40 Abdominal aortic aneurysm, without rupture, unspecified; E66.9 Obesity, unspecified; G47.33 Obstructive sleep apnea (adult) (pediatric); D64.9 Anemia, unspecified; F31.9 Bipolar disorder, unspecified; Z95.5 Presence of coronary angioplasty implant and graft; Z86.73 Personal history of transient ischemic attack (TIA), and cerebral infarction without residual deficits; Z87.891 Personal history of nicotine dependence; Z90.49 Acquired absence of other specified parts of digestive tract; Z87.442 Personal history of urinary calculi; Z79.01 Long term (current) use of anticoagulants; Z79.82 Long term (current) use of aspirin; Z79.02 Long term (current) use of antithrombotics/antiplatelets; Z79.899 Other long term (current) drug therapy; Z88.5 Allergy status to narcotic agent; Z68.35 Body mass index [BMI] 35.0-35.9, adult

== ENCOUNTER → 2022-08-20 | Outpatient (REF) | payer OTHER ==
[~2022-08-20] MED LIST changes: +ALBU8.5H INH; +ATOR80TA59 PO; +AZIT-12 PO; +AZIT500T5 PO; +DULA4.5P SC; +GUAI400T9 PO; +METO1TAB7 PO; +MIDO10TA PO
[2022-08-20 19:27] LABS: ALBUMIN 3.5 G/DL (3.2-5.2); ALKALINE PHOSPHATASE 82 U/L (46-116); ALT/SGPT 11 U/L (7.0-40); AST/SGOT 11 U/L (<34); BILIRUBIN,TOTAL 0.4 MG/DL (0.3-1.2); BLOOD UREA NITROGEN 17 MG/DL (9-23); CALCIUM LEVEL 9.4 MG/DL (8.3-10.6); CARBON DIOXIDE LEVEL 30 MMOL/L (20-31); CHLORIDE LEVEL 99 MMOL/L (98-107); CHOLESTEROL LEVEL 160 MG/DL (<200); CHOLESTEROL RISK RATIO 4.84 (<5); CREATININE FOR GFR 1.02 MG/DL (0.70-1.30); GLOMERULAR FILTRATION RATE > 60.0 (>49); GLUCOSE, FASTING 151 MG/DL (74-106); LDL CHOLESTEROL 85.2 MG/DL (<100); NON-HDL-C 127 MG/DL; POTASSIUM SERUM 4.5 MMOL/L (3.5-5.1); SODIUM LEVEL 139 MMOL/L (136-145); TOTAL PROTEIN 6.8 G/DL (5.7-8.2); TRIGLYCERIDES LEVEL 209 MG/DL (<150)
[2022-08-20 19:51] LABS: HEMOGLOBIN A1c 6.6 % (4.0-6.0)
== END ==
LOC: M SFHCCLAY 14:03
PROVIDERS: ATTEND Nurse Practitioner Family
DX: J44.9 Chronic obstructive pulmonary disease, unspecified (principal); G47.33 Obstructive sleep apnea (adult) (pediatric); I50.32 Chronic diastolic (congestive) heart failure; I48.3 Typical atrial flutter; E11.9 Type 2 diabetes mellitus without complications; I50.20 Unspecified systolic (congestive) heart failure